=== PATIENT | female | born 1945 | race American Indian/Alaskan Native ===

== ENCOUNTER 2016-10-12 05:10 | Inpatient (IN) | payer MEDICARE ==
[2016-10-12 05:28] LABS: Basophils % (Auto) 0.8 % (0.0-1.8); Eosinophils % (Auto) 0.1 % (0.0-4.3); Hematocrit 45.1 % (30.3-42.9); Hemoglobin 14.8 gm/dl (10.1-14.3); Mean Corpuscular HGB Conc 33 % (30-34); Mean Corpuscular Hemoglobin 31 pg (28-32); Mean Corpuscular Volume 93 fl (79-97); Platelet Count 180 K/mm3 (140-440); Red Blood Count 4.83 M/mm3 (3.65-5.03); Red Cell Distribution Width 13.6 % (13.2-15.2); White Blood Count 7.1 K/mm3 (4.5-11.0)
[2016-10-12] MEDS ORDERED: MAGNESIUM SULFATE 2GM/50ML 2 GM/50 ML BAG IV ONE ×2 (05:36)
[2016-10-12 05:39] LABS: INR 0.97 (0.87-1.13)
[2016-10-12 05:40] LABS: Partial Thromboplastin Time 23.7 Sec. (24.2-36.6)
[2016-10-12] MEDS ORDERED: ATROVENT IH ONE (05:41)
[2016-10-12] MEDS ORDERED: PROVENTIL IH ONE (05:41)
[2016-10-12 06:04] LABS: Creatine Kinase MB 9.6 ng/mL (0.0-4.0)
[2016-10-12 06:06] LABS: Alanine Aminotransferase 98 units/L (7-56); Albumin 4.2 g/dL (3.9-5); Albumin/Globulin Ratio 1.2 %; Alkaline Phosphatase 106 units/L (35-129); Anion Gap 19 mmol/L; BUN/Creatinine Ratio 24.28; Bilirubin,Total 0.3 mg/dL (0.1-1.2); Blood Urea Nitrogen 17 mg/dL (7-17); Calcium 9.6 mg/dL (8.4-10.2); Carbon Dioxide 28 mmol/L (22-30); Chloride 99.9 mmol/L (98-107); Glucose 116 mg/dL (65-100); Sodium 143 mmol/L (137-145); Total Protein 7.7 g/dL (6.3-8.2)
[2016-10-12 06:20] LABS: ISTAT Base Excess 3; ISTAT PCO2 52.8 (35-45); ISTAT PH 7.348 (7.35-7.45); ISTAT PO2 133 (80-105); ISTAT SO2 99; ISTAT TCO2 31
[2016-10-12 06:20] LABS: Cholesterol 231 mg/dL (50-199); HDL Cholesterol 93 mg/dL (40-59); LDL Cholesterol,Direct 126 mg/dL (50-130); Triglycerides 63 mg/dL (2-149)
[2016-10-12] MEDS ORDERED: NACL 0.9% 1000 ML 1,000 ML IV ONE (06:25)
[2016-10-12] MEDS ORDERED: NITROSTAT SL PRN (06:26)
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
[2016-10-12] MEDS ORDERED: NACL ONE (06:50)
--- NOTE | 2016-10-12 07:02 | Admit Criteria Form ---
Admission Criteria Documentation: PULMONARY DISEASE GRG Clinical Indications for Admission to Inpatient Care ( Place 'X' for any and all applicable criteria): Hospital admission is needed for appropriate care of the patient because of ANY ONE of the following(1): [ ]I. Impending or actual respiratory arrest ( Use Respiratory Failure Criteria for severe respiratory disease and long-term mechanical ventilation patients) (4) [ ]II. Severe airflow or ventilation abnormalities (not responsive to emergency and observation care treatment as appropriate) as indicated by ANY ONE of the following(5)(6)(7)(8) : [ ]a) PCO2 > 42 mm Hg (5.6 kPa) and pH < 7.35 (new) [ ]b) Documented PCO2 increase > 5 mm Hg (0.7 kPa) from disease baseline [ ]c) Airflow measurements[A] < 60% of previous best or predicted ( e.g., PEF <300 L/minute) despite intensive emergent treatment[B] [ ]d) Required respiratory treatments that are performable only in acute inpatient setting [X ]III. Severe respiratory findings (not responsive to emergency and observation care treatment as appropriate) including ANY ONE of the following(5)(8)(9): [X ]a) Respiratory distress as indicated by ALL of the following(5)(10) : [ X]i) Patient with ANY ONE of the following: [X ]1) Dyspnea (difficulty breathing) [ ]2) Abnormal breathing pattern (eg, chest retractions) [ ]3) Tachypnea [ ]4) Other evidence of difficulty breathing [ ]ii) Evidence of respiratory compromise indicated by ANY ONE of the following: [ ]1) Hypoxemia [ ]2) Altered mental status [ ]3) Other evidence of respiratory compromise (eg, pulmonary edema on chest x-ray) [ ]b) Stridor [ ]c) Gross hemoptysis(11) [ ]d) Acute cyanosis [ ]IV. High-risk pulmonary infection as indicated by ANY ONE of the following( 19)(20)(21)(22): [ ]a) Temperature less than 95 degrees F(35 degrees C) or greater than 103.1 degrees F(39.5 degrees C) [ ]b) Hemodynamic instability that remains after emergency or observation level care (as appropriate) [ ]c) Immunocompromised patient (eg, AIDS, post transplant, neutropenic) [ ]d) History of severe COPD [ ]e) History of severely symptomatic congestive heart failure [ ]f) Other high-risk comorbidity (eg, poorly controlled diabetes, cirrhosis, chronic renal insufficiency) [ ]g) Hypoxemia (new) [ ]h) Outpatient, observation, or recovery facility therapy has failed, is not appropriate, or is not feasible [ ]V. Severe atelectasis or lung collapse(15)(16) [ ]. Tuberculosis requiring inpatient treatment as indicated by ANY ONE of the following(17)(18): [ ]a) New positive acid-fast bacilli sputum smear [ ]b) Positive acid-fast bacilli smear (under current treatment), with ANY ONE of the following: [ ]i) Unexposed household contacts [ ]ii) Infants or immunosuppressed household contacts [ ]iii) Patient unable or unwilling to avoid exposing others [ ]iv) Severe immunocompromised patient (eg, AIDS, post transplant, neutropenic) [ ]VII. Empyema or lung abscess(13)(14) [ ]VIII. Severe pulmonary arterial hypertension or pulmonary vascular disease requiring inpatient care indicated by ANY ONE of the following(24)(25): [ ]a) Initiation or change of vasodilators (IV, subcutaneous, or inhaled) or other vasoactive medications needed [ ]b) IV anticoagulation needed (eg, immediate anticoagulation necessary, alternatives not appropriate) [ ]c) Arterial or pulmonary artery catheter monitoring needed due to infusion or other treatment [ ]IX. Chronic lung disease with severe deterioration (not responsive to emergency and observation care treatment as appropriate) as indicated by ANY ONE of the following (6)(12): [ ]a) SaO2 5% below baseline in patient with chronic hypoxemia [ ]b) New requirement for supplemental oxygen to keep SaO2 at baseline or acceptable level [ ]c) Required supplemental oxygen performable only in acute inpatient setting [ ]d) Severe airflow or ventilation abnormalities [ ]e) Rapid rate of exacerbation onset [ ]f) Previously mobile patient unable to walk between rooms [ ]g) Inability to eat or sleep due to dyspnea [ ]h) Altered mental status [ ]X. Cystic fibrosis with severe deterioration as indicated by ANY ONE of the following(26)(27): [ ]a) Severe exacerbation that does not respond to intensified home therapy [ ]b) Pneumonia [ ]c) Hemoptysis [ ]d) Atelectasis [ ]e) Pneumothorax [ ]f) Respiratory failure [ ]g) Severe exacerbation with patient unable to perform prescribed treatments at home [ ]XI. Severe right heart failure as indicated by ANY ONE of the following(24) (25): [ ]a) Increasing organ failure (eg, liver congestion with significant and worsening or new elevation of transaminases) [ ]b) Anasarca [ ]c) Angina that requires inpatient care (eg, not treatable in emergency or observation level of care) [ ]d) Respiratory distress [ ]e) Syncope [ ]f) SBP < 90 mm Hg (new) [ ]XII. Injury requiring inpatient care (medical) as indicated by ANY ONE of the following(28): [ ]a) Significant inhalation injury (eg, smoke inhalation, other toxic inhalation) (29)(30)(31) [ ]b) Airway obstruction that remains or is unstable after emergency or observation level care(32) [ ]c) Severe pain requiring acute inpatient management [ ]d) Lung contusion [ ]e) Bronchial tree injury [ ]f) Air or fat emboli(33) [ ]g) Other injury not treatable in emergency or observation level care (eg, hemothorax) (34) [ ]XIII. Pulmonary hemorrhage or significant hemoptysis(11)(35)(36) [ ]XIV. Inpatient palliative care needed[C](37)(38)(39)(40) [ ]XV. Complications of lung transplant (eg, rejection, failure, respiratory infection) (23) [ ]XVI. Pulmonary Disease and ANY ONE of the following: [ ]a) General Admission Criteria [ ]b) Pediatric General Admission Criteria The original [facility] [place] [facility] content created by [email or web address] has been revised. The portions of the content which have been revised are identified through the use of italic text or in bold, and [facility] has neither reviewed nor approved the modified material. All other unmodified content is copyright [facility]. Please see references footnoted in the original [facility] edition 2016 Admission Criteria Met: Yes
[2016-10-12] MEDS ORDERED: BABY ASPIRIN PO ONE (07:47)
[2016-10-12] MEDS ORDERED: LOVENOX SUB-Q ONE (08:04)
[2016-10-12 08:50] LABS: Bilirubin,Urine NEG (Negative); Blood,Urine NEG (Negative); Ketones,Urine NEG (Negative); Leukocyte Esterase,Urine NEG (Negative); Nitrite,Urine POS (Negative); Urobilinogen,Urine < 2.0 mg/dL (<2.0)
[2016-10-12] MEDS ORDERED: PROVENTIL IH PRN (10:00)
[2016-10-12] MEDS ORDERED: LEVAQUIN 750MG/150ML 750 MG/150 ML BAG IV SCH (10:00)
[2016-10-12] MEDS ORDERED: PROTONIX IV SCH (10:00)
[2016-10-12] MEDS ORDERED: FISH OIL 1000 MG PO SCH (10:00)
--- NOTE | 2016-10-12 10:28 | Admit Criteria Form ---
Admission Criteria Documentation: RESPIRATORY FAILURE GRG Clinical Indications for Admission to Inpatient Care (Place 'X' for any and all applicable criteria): Hospital admission is needed for appropriate care of the patient because of acute respiratory failure or insufficiency as indicated by ANY ONE of the following(1)(2)(3)(4)(5)(6)(7)(8): [ ]I. Mechanical ventilation needed (acute invasive or noninvasive) [ ]II. Severe ventilation deficit as indicated by ANY ONE of the following (9) [ ]a) Respiratory acidosis (pH less than 7.32 and partial pressure of carbon dioxide greater than 40 mm Hg (5.3 kPa)) [ ]b) Partial pressure of carbon dioxide greater than 44 mm Hg (5.9 kPa ) (new) [ ]c) Airflow measurements less than 25% of predicted (eg, peak expiratory flow rate less than 100 L/minute) [ ]d) Forced vital capacity less than 15 mL/kg of ideal body weight, or 50% decrease in vital capacity from baseline [ ]III. Noncardiac pulmonary edema not resolving with rapid emergency treatment (8) [X ]IV. Severe respiratory distress as indicated by ANY ONE of the following: [X]a) Severe tachypnea (respiratory rate greater than 30, greater than 45 for 6-month-old, greater than 60 for ) [ ]b) Severe hypoxemia (partial pressure of oxygen less than 50 mm Hg ( 6.7 kPa) on greater than 50% oxygen or partial pressure of oxygen to FIO2 ratio less than 200) [ ]c) Mental status deterioration from respiratory disease [ ]V. Airway obstruction or inadequate protection [A](10)(11) The original [employer] content created by [employer] has been revised. The portions of the content which have been revised are identified through the use of italic text or in bold, and [facility] has neither reviewed nor approved the modified material. All other unmodified content is copyright [employer]. Please see references footnoted in the original [employer] edition 2016 Admission Criteria Met: Yes
[2016-10-12] MEDS ORDERED: ASPIRIN PO ONE (11:00)
[2016-10-12] MEDS: NORVASC PO SCH (11:46)
[2016-10-12] MEDS: ZESTRIL PO SCH (11:47)
[2016-10-12] MEDS: COREG PO SCH ×2 (11:56→23:04)
[2016-10-12] MEDS: LEVAQUIN 750MG/150ML 750 MG/150 ML BAG IV SCH (11:56)
--- NOTE | 2016-10-12 12:57 | History and Physical Report ---
History of Present Illness Date of examination: 10/12/16 Date of admission: 10/12/16 08:12 Chief complaint: Worsening shortness of breath since this morning History of present illness: 70-year-old -British female patient with significant past medical history of COPD home oxygen dependent hypertension, bronchial asthma history of CVA in 2011, was brought to the emergency room with worsening shortness of breath this morning Patient was brought to the emergency room noted to have severe hypoxemia started on BiPAP IV steroids with mild improvement Patient also complains of vague chest pain, first set of of cardiac enzymes were positive, EKG nonspecific changes Denies nausea vomiting or abdominal pain Denies headache dizziness weakness or numbness No urinary symptoms Past History Past Medical History: COPD, hypertension, hyperlipidemia, PVD Past Surgical History: appendectomy Social history: lives with family. denies: smoking, alcohol abuse, prescription drug abuse Family history: hypertension Medications and Allergies Allergies Allergy/AdvReac Type Severity Reaction Status Date / Time Oxazolidinone Antibacterials Allergy Rash Verified 02/23/15 12:02 Sulfa (Sulfonamide Allergy Rash Verified 02/23/15 12:02 Antibiotics) Home Medications Medication Instructions Recorded Confirmed Last Taken Type Albuterol 02/23/15 02/23/15 Unknown History Fish Oil 1,000 mg PO QDAY 02/23/15 02/23/15 Unknown History Gabapentin [Neurontin] 300 mg PO TID 02/23/15 02/23/15 Unknown History HYDROcodone/APAP 5-325 [[place] 1 each PO Q8HR PRN #10 tablet 02/23/15 Unknown Rx 5-325 mg TAB] Ipratropium/Albuter (Nf) 02/23/15 02/23/15 Unknown History Lisinopril [Zestril TAB] 5 mg PO QDAY 02/23/15 02/23/15 Unknown History Vitamin B Complex 02/23/15 02/23/15 Unknown History amLODIPine [Norvasc] 5 mg PO QDAY 02/23/15 02/23/15 Unknown History Active Meds: Active Medications Albuterol (Proventil) 2.5 mg IH Q3HRT PRN PRN Reason: Shortness Of Breath Albuterol/Ipratropium (Duoneb 0.5 Mg-3 Mg/3 Ml Soln) 1 ampul IH Q6HRT [facility] Amlodipine Besylate (Norvasc) 5 mg PO QDAY [facility] Last Admin: 10/12/16 11:46 Dose: Not Given Aspirin (Aspirin) 325 mg PO QDAY [facility] Atorvastatin Calcium (Lipitor) 40 mg PO QHS [facility] Carvedilol (Coreg) 3.125 mg PO BID [facility] Last Admin: 10/12/16 11:56 Dose: 3.125 mg Budesonide 0.5 mg/ (Arformoterol Tartrate 15 mcg) 0 mg IH Q12HRT [facility] Enoxaparin Sodium (Lovenox) 60 mg 1 mg/kg (60 mg) SUB-Q Q12HR [facility] Fish Oil (Fish Oil) 1,000 mg PO QDAY [facility] Gabapentin (Neurontin) 300 mg PO TID [facility] Levofloxacin/Dextrose (Levaquin 750mg/150ml) 750 mg in 150 mls @ 100 mls/hr IV Q48H [facility] Last Admin: 10/12/16 11:56 Dose: 100 mls/hr Lisinopril (Zestril) 5 mg PO QDAY [facility] Last Admin: 10/12/16 11:47 Dose: Not Given Methylprednisolone Sodium Succinate (Solu-Medrol) 125 mg IV Q8H [facility] Last Admin: 10/12/16 11:46 Dose: Not Given Nitroglycerin (Nitrostat) 0.4 mg SL .Q5MIN PRN PRN Reason: Chest Pain Pantoprazole Sodium (Protonix) 40 mg IV QDAY [facility] Last Admin: 10/12/16 11:56 Dose: 40 mg Review of Systems Constitutional: weakness, no weight loss, no weight gain, no fever, no chills Ears, nose, mouth and throat: nasal congestion, nasal discharge Cardiovascular: chest pain, shortness of breath, dyspnea on exertion, paroxysmal nocturnal dyspnea Respiratory: shortness of breath, congestion, wheezing, no cough, no dyspnea on exertion Gastrointestinal: no nausea, no vomiting, no diarrhea Genitourinary Female: no pelvic pain, no dysuria Musculoskeletal: no myalgias, no arthritis Integumentary: no rash, no lesions Neurological: weakness, no tingling, no seizures, no syncope Psychiatric: no anxiety, no depression Endocrine: no cold intolerance, no heat intolerance, no polydipsia, no polyuria Hematologic/Lymphatic: no easy bruising, no easy bleeding Allergic/Immunologic: no urticaria, no allergic rhinitis Exam - Constitutional Vitals: Temp Pulse Resp BP Pulse Ox 97.9 F 99 H 27 H 127/79 99 10/12/16 12:30 10/12/16 12:41 10/12/16 12:41 10/12/16 11:56 10/12/16 11:00 General appearance: Present: no acute distress, well-nourished, cachectic - EENT Eyes: Present: PERRL, EOM intact - Neck Neck: Present: supple, normal ROM - Respiratory Respiratory: bilateral: diminished, rales, rhonchi - Cardiovascular Rhythm: regular Heart Sounds: Present: S1 & S2 (tachycardia) - Extremities Extremities: no ischemia, pulses intact Peripheral Pulses: within normal limits - Abdominal General gastrointestinal: Present: soft, non-tender, non-distended, normal bowel sounds - Integumentary Integumentary: Present: clear, warm - Musculoskeletal Musculoskeletal: strength equal bilaterally - Psychiatric Psychiatric: appropriate mood/affect, other - Neurologic Neurologic: CNII-XII intact, moves all extremities Results - Labs CBC & Chem 7: 10/12/16 05:15 10/12/16 05:15 Labs: Abnormal lab results 10/12/16 10/12/16 Range/Units 11:19 12:27 POC Glucose 149 H (70-105) Troponin T 0.547 H* D (0.00-0.029) ng/mL Assessment and Plan --Acute on chronic hypoxic hypercapnic respiratory failure Continue BiPAP, titrated to O2 sats more than 90% High-dose steroids, nebulizers inhalation steroids IV antibiotics Pulmonary critical consultation Intubate as needed, --Acute exacerbation of COPD Oxygen, nebulizers IV steroids, IV antibiotics, inhalation steroids Pulmonary consultation --Non-ST elevation MT Serial cardiac enzymes, EKG, echocardiogram aspirin and [place]RIST[place]NA inhibitor, nitrates and statins Hold beta blockers in view of COPD exacerbation and acute respiratory failure Cardiology consultation for possible heart Cath versus stress test --Elevated D dimers Patient is unstable to get CT angiogram of the chest patient is already on full dose anticoagulation for non-ST elevation MT We will obtain chest CT to rule out PE once patient is more stable, --Malignant hypertension Resume home antihypertensives, when necessary hydralazine --DVT prophylaxis patient is already on Lovenox --Full CODE STATUS Closely monitor the patient and adjust management as needed Disposition admit to ICU, pulmonary critical consult requested DC planning. Case management Plan of care discussed with the patient, her nurse as well as the ER physician
[2016-10-12] MEDS: FISH OIL PO SCH (13:04)
[2016-10-12] MEDS: NEURONTIN PO SCH ×2 (13:10→21:27)
[2016-10-12] MEDS ORDERED: APRESOLINE IV PRN (13:14)
[2016-10-12] MEDS: DUONEB 0.5 MG-3 MG/3 ML SOLN IH SCH ×3 (14:09→20:09)
[2016-10-12] MEDS ORDERED: ATIVAN IV ONE (14:30)
[2016-10-12] MEDS ORDERED: APRESOLINE IV SCH (17:00)
[2016-10-12] MEDS: APRESOLINE IV SCH ×2 (18:01→22:05)
--- NOTE | 2016-10-12 18:13 | Consultation ---
History of Present Illness Consult date: 10/12/16 Requesting physician: RICHAR STEVENSON Reason for consult: COPD History of present illness: 70 yo admitted w/ increased SOB, wheezing, hypoxia, fevers at home, cough, and chest pain. Patient not able to give much history when I saw her 2/2 to respiratory distress and BIPAP mask. Denies smoking. Active Medications Albuterol (Proventil) 2.5 mg IH Q3HRT PRN PRN Reason: Shortness Of Breath Albuterol/Ipratropium (Duoneb 0.5 Mg-3 Mg/3 Ml Soln) 1 ampul IH Q6HRT [facility] Last Admin: 10/12/16 17:53 Dose: 1 ampul Amlodipine Besylate (Norvasc) 5 mg PO QDAY [facility] Last Admin: 10/12/16 11:46 Dose: Not Given Aspirin (Aspirin) 325 mg PO QDAY [facility] Atorvastatin Calcium (Lipitor) 40 mg PO QHS [facility] Carvedilol (Coreg) 3.125 mg PO BID [facility] Last Admin: 10/12/16 11:56 Dose: 3.125 mg Budesonide 0.5 mg/ (Arformoterol Tartrate 15 mcg) 0 mg IH Q12HRT [facility] Enoxaparin Sodium (Lovenox) 60 mg 1 mg/kg (60 mg) SUB-Q Q12HR [facility] Fish Oil (Fish Oil) 1,000 mg PO QDAY [facility] Last Admin: 10/12/16 13:04 Dose: Not Given Gabapentin (Neurontin) 300 mg PO TID [facility] Last Admin: 10/12/16 13:10 Dose: Not Given Hydralazine HCl (Apresoline) 10 mg IV Q4HR PRN PRN Reason: Hypertension Hydralazine HCl (Apresoline) 10 mg IV Q8HR [facility] Last Admin: 10/12/16 18:01 Dose: 10 mg Levofloxacin/Dextrose (Levaquin 750mg/150ml) 750 mg in 150 mls @ 100 mls/hr IV Q48H [facility] Last Admin: 10/12/16 11:56 Dose: 100 mls/hr Lisinopril (Zestril) 5 mg PO QDAY [facility] Last Admin: 10/12/16 11:47 Dose: Not Given Lorazepam (Ativan) 0.5 mg IV Q8H PRN PRN Reason: Anxiety Methylprednisolone Sodium Succinate (Solu-Medrol) 125 mg IV Q8H [facility] Last Admin: 10/12/16 17:42 Dose: 125 mg Nitroglycerin (Nitrostat) 0.4 mg SL .Q5MIN PRN PRN Reason: Chest Pain Pantoprazole Sodium (Protonix) 40 mg IV QDAY [facility] Last Admin: 10/12/16 11:56 Dose: 40 mg Past History Past Medical History: COPD, hypertension, hyperlipidemia, PVD Past Surgical History: appendectomy Social history: lives with family, full code. denies: smoking, alcohol abuse, prescription drug abuse, IV drug use Family history: hypertension Medications and Allergies Allergies Allergy/AdvReac Type Severity Reaction Status Date / Time Oxazolidinone Antibacterials Allergy Rash Verified 02/23/15 12:02 Sulfa (Sulfonamide Allergy Rash Verified 02/23/15 12:02 Antibiotics) Home Medications Medication Instructions Recorded Confirmed Last Taken Type Albuterol 02/23/15 02/23/15 Unknown History Fish Oil 1,000 mg PO QDAY 02/23/15 02/23/15 Unknown History Gabapentin [Neurontin] 300 mg PO TID 02/23/15 02/23/15 Unknown History HYDROcodone/APAP 5-325 [[place] 1 each PO Q8HR PRN #10 tablet 02/23/15 Unknown Rx 5-325 mg TAB] Ipratropium/Albuter (Nf) 02/23/15 02/23/15 Unknown History Lisinopril [Zestril TAB] 5 mg PO QDAY 02/23/15 02/23/15 Unknown History Vitamin B Complex 02/23/15 02/23/15 Unknown History amLODIPine [Norvasc] 5 mg PO QDAY 02/23/15 02/23/15 Unknown History Active Meds: Active Medications Albuterol (Proventil) 2.5 mg IH Q3HRT PRN PRN Reason: Shortness Of Breath Albuterol/Ipratropium (Duoneb 0.5 Mg-3 Mg/3 Ml Soln) 1 ampul IH Q6HRT [facility] Last Admin: 10/12/16 17:53 Dose: 1 ampul Amlodipine Besylate (Norvasc) 5 mg PO QDAY [facility] Last Admin: 10/12/16 11:46 Dose: Not Given Aspirin (Aspirin) 325 mg PO QDAY [facility] Atorvastatin Calcium (Lipitor) 40 mg PO QHS [facility] Carvedilol (Coreg) 3.125 mg PO BID [facility] Last Admin: 10/12/16 11:56 Dose: 3.125 mg Budesonide 0.5 mg/ (Arformoterol Tartrate 15 mcg) 0 mg IH Q12HRT [facility] Enoxaparin Sodium (Lovenox) 60 mg 1 mg/kg (60 mg) SUB-Q Q12HR [facility] Fish Oil (Fish Oil) 1,000 mg PO QDAY [facility] Last Admin: 10/12/16 13:04 Dose: Not Given Gabapentin (Neurontin) 300 mg PO TID [facility] Last Admin: 10/12/16 13:10 Dose: Not Given Hydralazine HCl (Apresoline) 10 mg IV Q4HR PRN PRN Reason: Hypertension Hydralazine HCl (Apresoline) 10 mg IV Q8HR [facility] Last Admin: 10/12/16 18:01 Dose: 10 mg Levofloxacin/Dextrose (Levaquin 750mg/150ml) 750 mg in 150 mls @ 100 mls/hr IV Q48H [facility] Last Admin: 10/12/16 11:56 Dose: 100 mls/hr Lisinopril (Zestril) 5 mg PO QDAY [facility] Last Admin: 10/12/16 11:47 Dose: Not Given Lorazepam (Ativan) 0.5 mg IV Q8H PRN PRN Reason: Anxiety Methylprednisolone Sodium Succinate (Solu-Medrol) 125 mg IV Q8H [facility] Last Admin: 10/12/16 17:42 Dose: 125 mg Nitroglycerin (Nitrostat) 0.4 mg SL .Q5MIN PRN PRN Reason: Chest Pain Pantoprazole Sodium (Protonix) 40 mg IV QDAY [facility] Last Admin: 10/12/16 11:56 Dose: 40 mg Review of Systems All systems: negative Physical Examination Vital signs: Vital Signs Pulse Resp BP Pulse Ox 101 H 38 H 184/93 100 10/12/16 05:10 10/12/16 05:10 10/12/16 05:10 10/12/16 05:10 General appearance: alert, other (critically ill on bipap) Eyes: non-icteric ENT: oropharynx moist Neck: supple Effort: other (moderate respiratory distress) Ascultation: Bilateral: diminished breath sounds, wheezes Cardiovascular: other (tachy, RR; no mrg) Gastrointestinal: normoactive bowel sounds, soft, non-tender, non-distended Integumentary: normal Extremities: no cyanosis, no edema, pink and warm Musculoskeletal: no deformities normal mental status, non-focal exam, pupils equal and round, CN II-XII normal mood appropriate, affect normal Results - Laboratory Findings CBC and BMP: 10/12/16 05:15 10/12/16 05:15 ABG POC ABG pH 7.348 (7.35-7.45) L 10/12/16 05:58 POC ABG pCO2 52.8 (35-45) H 10/12/16 05:58 POC ABG pO2 133 (80-105) H 10/12/16 05:58 POC ABG HCO3 29.0 10/12/16 05:58 POC ABG Total CO2 31 10/12/16 05:58 POC ABG O2 Sat 99 10/12/16 05:58 PT/INR, D-dimer PT 12.8 Sec. (12.2-14.9) 10/12/16 05:15 INR 0.97 (0.87-1.13) 10/12/16 05:15 D-Dimer 379.00 ng/mlDDU (0-234) H 10/12/16 05:15 Abnormal lab findings: Abnormal Labs 10/12/16 10/12/16 10/12/16 11:19 12:27 15:46 POC Glucose 149 H Total Creatine Kinase 292 H CK-MB (CK-2) 21.0 H CK-MB (CK-2) Rel Index 7.1 H Troponin T 0.547 H* D 0.488 H* - Diagnostic Findings Chest x-ray: report reviewed, image reviewed (no change from prior) Assessment and Plan Imp: 1. Acute bronchitis 2. COPD exac. 3. A/C respiratory failure, hypoxia and hypercapnea 4. Anxiety Rec: 1. Solumedrol/Levaquin/Duonebs/Pulmicort/[place] 2. Was on CPAP when I saw her; changed to BIPAP; repeat ABG stat 3. Anxiety making dyspnea worse, likely with gas trapping; PRN low-dose Ativan ordered 4. DVT PPx 5. Can get CTA chest when more stable although PE doubtful; covering with therapeutic Lovenox for now 6. Further plans pending clinical course CCT 31 minutes Thanks kindly for the consult. Will follow closely.
[2016-10-12] MEDS: ATIVAN IV PRN (18:22)
[2016-10-12 18:43] LABS: Creatine Kinase MB 21.8 ng/mL (0.0-4.0)
[2016-10-12 18:50] LABS: ISTAT Base Excess 4; ISTAT HCO3 28.6; ISTAT PCO2 47.4 (35-45); ISTAT PH 7.388 (7.35-7.45); ISTAT PO2 68 (80-105); ISTAT SO2 93; ISTAT TCO2 30
[2016-10-12] MEDS ORDERED: MORPHINE IV ONE (18:56)
--- NOTE | 2016-10-12 19:49 | Consultation ---
History of Present Illness Consult date: 10/12/16 Consult reason: abnormal cardiac enzymes History of present illness: Patient is a 70-year-old woman with severe lung disease, who was on BiPAP therapy at home. She presents to the hospital, with increasing shortness of breath. She is currently in the CCU, on BiPAP. On the carpenter maintenance, she is in a normal sinus rhythm at 96, blood pressure is normal at 111 systolic. Chest x-ray reveals a right hilar fullness, but no evidence of significant interstitial pulmonary edema. Cardiac consultation was requested for abnormally elevated cardiac isoenzymes. The total CPK is 314, but CK-MB fraction is only 3%. The initial troponin was 0.08, and increased to 0.5 on the second set. The ECG is in normal sinus rhythm with no ST or T-wave abnormalities, essentially normal ECG. The patient did not complain of chest pain and denies any prior history of coronary artery disease. Her old records are not available for review of any prior cardiac workup. Past History Past Medical History: COPD, hypertension, hyperlipidemia, PVD Past Surgical History: appendectomy Social history: lives with family, full code. denies: smoking, alcohol abuse, prescription drug abuse, IV drug use Family history: hypertension Medications and Allergies Allergies Allergy/AdvReac Type Severity Reaction Status Date / Time Oxazolidinone Antibacterials Allergy Rash Verified 02/23/15 12:02 Sulfa (Sulfonamide Allergy Rash Verified 02/23/15 12:02 Antibiotics) Home Medications Medication Instructions Recorded Confirmed Last Taken Type Albuterol 02/23/15 02/23/15 Unknown History Fish Oil 1,000 mg PO QDAY 02/23/15 02/23/15 Unknown History Gabapentin [Neurontin] 300 mg PO TID 02/23/15 02/23/15 Unknown History HYDROcodone/APAP 5-325 [[place] 1 each PO Q8HR PRN #10 tablet 02/23/15 Unknown Rx 5-325 mg TAB] Ipratropium/Albuter (Nf) 02/23/15 02/23/15 Unknown History Lisinopril [Zestril TAB] 5 mg PO QDAY 02/23/15 02/23/15 Unknown History Vitamin B Complex 02/23/15 02/23/15 Unknown History amLODIPine [Norvasc] 5 mg PO QDAY 02/23/15 02/23/15 Unknown History Active Meds: Active Medications Albuterol (Proventil) 2.5 mg IH Q3HRT PRN PRN Reason: Shortness Of Breath Albuterol/Ipratropium (Duoneb 0.5 Mg-3 Mg/3 Ml Soln) 1 ampul IH Q6HRT [facility] Last Admin: 10/12/16 17:53 Dose: 1 ampul Amlodipine Besylate (Norvasc) 5 mg PO QDAY [facility] Last Admin: 10/12/16 11:46 Dose: Not Given Aspirin (Aspirin) 325 mg PO QDAY [facility] Atorvastatin Calcium (Lipitor) 40 mg PO QHS [facility] Carvedilol (Coreg) 3.125 mg PO BID [facility] Last Admin: 10/12/16 11:56 Dose: 3.125 mg Budesonide 0.5 mg/ (Arformoterol Tartrate 15 mcg) 0 mg IH Q12HRT [facility] Enoxaparin Sodium (Lovenox) 60 mg 1 mg/kg (60 mg) SUB-Q Q12HR [facility] Fish Oil (Fish Oil) 1,000 mg PO QDAY [facility] Last Admin: 10/12/16 13:04 Dose: Not Given Gabapentin (Neurontin) 300 mg PO TID [facility] Last Admin: 10/12/16 13:10 Dose: Not Given Hydralazine HCl (Apresoline) 10 mg IV Q4HR PRN PRN Reason: Hypertension Hydralazine HCl (Apresoline) 10 mg IV Q8HR [facility] Last Admin: 10/12/16 18:01 Dose: 10 mg Levofloxacin/Dextrose (Levaquin 750mg/150ml) 750 mg in 150 mls @ 100 mls/hr IV Q48H [facility] Last Admin: 10/12/16 11:56 Dose: 100 mls/hr Lisinopril (Zestril) 5 mg PO QDAY [facility] Last Admin: 10/12/16 11:47 Dose: Not Given Lorazepam (Ativan) 0.5 mg IV Q8H PRN PRN Reason: Anxiety Last Admin: 10/12/16 18:22 Dose: 0.5 mg Methylprednisolone Sodium Succinate (Solu-Medrol) 125 mg IV Q8H [facility] Last Admin: 10/12/16 17:42 Dose: 125 mg Nitroglycerin (Nitrostat) 0.4 mg SL .Q5MIN PRN PRN Reason: Chest Pain Pantoprazole Sodium (Protonix) 40 mg IV QDAY [facility] Last Admin: 10/12/16 11:56 Dose: 40 mg Review of Systems Cardiovascular: shortness of breath, no chest pain, no orthopnea, no palpitations, no rapid/irregular heart beat, no edema, no syncope, no lightheadedness Physical Examination Vital Signs Pulse Resp BP Pulse Ox 101 H 38 H 184/93 100 10/12/16 05:10 10/12/16 05:10 10/12/16 05:10 10/12/16 05:10 General appearance: mild distress, other (patient is on BiPAP) HEENT: Positive: PERRL Neck: Positive: neck supple Cardiac: Positive: Reg Rate and Rhythm Lungs: Positive: Decreased Breath Sounds Neuro: Positive: Grossly Intact Abdomen: Positive: Soft Female genitourinary: deferred Skin: Positive: Clear Extremities: Absent: edema Results 10/12/16 05:15 10/12/16 05:15 Cardiac Enzymes 10/12/16 10/12/16 Range/Units 15:46 18:00 CK-MB (CK-2) 21.0 H 21.8 H (0.0-4.0) ng/mL EKG interpretations - Telemetry EKG Rhythm: Sinus Rhythm Assessment and Plan - Patient Problems (1) COPD exacerbation Current Visit: Yes Status: Acute Plan to address problem: Patient presents with shortness of breath due to exacerbation of COPD. Continue workup for management as you're doing. (2) Abnormal cardiac enzyme level Current Visit: Yes Status: Acute Plan to address problem: Patient has no chest pain, no chest x-ray evidence of heart failure, and ECG is benign. The cardiac enzyme profile is therefore somewhat nonspecific. We will get an echocardiogram for left ventricular function assessment. Further cardiac evaluation and management will depend on clinical course. Due to the severity of her COPD, she is not likely a candidate for aggressive and invasive cardiac evaluation and therapies.
[2016-10-12] MEDS ORDERED: NACL 0.9% 500 ML 500 ML IV ONE (21:24)
[2016-10-12] MEDS: LOVENOX SUB-Q SCH (22:04)
[2016-10-13] MEDS: DUONEB 0.5 MG-3 MG/3 ML SOLN IH SCH ×4 (02:00→20:25)
[2016-10-13] MEDS: NEURONTIN PO SCH ×4 (02:07→21:20)
[2016-10-13 05:18] LABS: Basophils % (Auto) 0.7 % (0.0-1.8); Hematocrit 42.7 % (30.3-42.9); Mean Corpuscular HGB Conc 33 % (30-34); Mean Corpuscular Hemoglobin 31 pg (28-32); Mean Corpuscular Volume 93 fl (79-97); Platelet Count 168 K/mm3 (140-440); Red Blood Count 4.58 M/mm3 (3.65-5.03); Red Cell Distribution Width 13.7 % (13.2-15.2); White Blood Count 5.5 K/mm3 (4.5-11.0)
[2016-10-13 05:35] LABS: Anion Gap 20 mmol/L; BUN/Creatinine Ratio 35.71; Blood Urea Nitrogen 25 mg/dL (7-17); Calcium 9.1 mg/dL (8.4-10.2); Carbon Dioxide 23 mmol/L (22-30); Chloride 102.6 mmol/L (98-107); Glucose 121 mg/dL (65-100); Magnesium 2.1 mg/dL (1.7-2.3); Phosphorous 3.9 mg/dL (2.5-4.5); Potassium 4.2 mmol/L (3.6-5.0); Sodium 141 mmol/L (137-145)
[2016-10-13] MEDS: ATIVAN IV PRN ×2 (08:31→19:44)
[2016-10-13] MEDS: MORPHINE IV PRN ×3 (09:12→22:30)
[2016-10-13] MEDS: ASPIRIN PO SCH (10:32)
[2016-10-13] MEDS: PROTONIX PO SCH (10:33)
[2016-10-13] MEDS: FISH OIL PO SCH (10:33)
[2016-10-13] MEDS: LOVENOX SUB-Q SCH ×2 (10:56→22:37)
[2016-10-13 11:41] LABS: ISTAT Base Excess 2; ISTAT HCO3 26.5; ISTAT PH 7.397 (7.35-7.45); ISTAT PO2 78 (80-105); ISTAT SO2 95; ISTAT TCO2 28
[2016-10-13] MEDS ORDERED: MORPHINE IV ONE (13:04)
[2016-10-13] MEDS: APRESOLINE IV SCH ×2 (14:28→22:08)
--- NOTE | 2016-10-13 15:34 | Progress Note ---
Assessment and Plan Imp: 1. Acute bronchitis 2. COPD exac. 3. A/C respiratory failure, hypoxia and hypercapnea 4. Anxiety Rec: 1. Solumedrol -> decrease to 80mg IV [id number]; cont. Levaquin/Duonebs/Pulmicort/ Brovana/Singulair 2. IV Ativan/Morphine for anxiety and chest pain, respectively 3. Can get CTA chest when more stable although PE doubtful; covering with therapeutic Lovenox for now 4. Consider trial of HFNC 5. CXR again in AM 6. Will try to review office records/PFTs 7. Further plans pending clinical course; she is tachypneic but much of this is anxiety-driven as it improves after Morphine and when asleep; ABGs show adequate /improving gas exchange; would like to avoid intubation given the severity of her COPD CCT 31 minutes Subjective Date of service: 10/13/16 Principal diagnosis: COPD exac Interval history: c/o SOB and anterior chest pain, both of which improve with Morphine. States she feels like she is not getting air in but per BIPAP she is getting good volumes and ABGs are better. + Anxiety. Active Medications Albuterol (Proventil) 2.5 mg IH Q3HRT PRN PRN Reason: Shortness Of Breath Albuterol/Ipratropium (Duoneb 0.5 Mg-3 Mg/3 Ml Soln) 1 ampul IH Q6HRT [facility] Last Admin: 10/13/16 13:38 Dose: 1 ampul Amlodipine Besylate (Norvasc) 5 mg PO QDAY [facility] Last Admin: 10/12/16 11:46 Dose: Not Given Aspirin (Aspirin) 325 mg PO QDAY [facility] Last Admin: 10/13/16 10:32 Dose: Not Given Atorvastatin Calcium (Lipitor) 40 mg PO QHS [facility] Last Admin: 10/12/16 22:05 Dose: 40 mg Carvedilol (Coreg) 3.125 mg PO BID [facility] Last Admin: 10/12/16 23:04 Dose: Not Given Budesonide 0.5 mg/ (Arformoterol Tartrate 15 mcg) 0 mg IH Q12HRT [facility] Enoxaparin Sodium (Lovenox) 60 mg 1 mg/kg (60 mg) SUB-Q Q12HR [facility] Last Admin: 10/13/16 10:56 Dose: 60 mg Fish Oil (Fish Oil) 1,000 mg PO QDAY [facility] Last Admin: 10/13/16 10:33 Dose: Not Given Gabapentin (Neurontin) 300 mg PO TID [facility] Last Admin: 10/13/16 08:32 Dose: Not Given Hydralazine HCl (Apresoline) 10 mg IV Q4HR PRN PRN Reason: Hypertension Hydralazine HCl (Apresoline) 10 mg IV Q8HR [facility] Last Admin: 10/12/16 22:05 Dose: Not Given Levofloxacin/Dextrose (Levaquin 750mg/150ml) 750 mg in 150 mls @ 100 mls/hr IV Q48H [facility] Last Admin: 10/12/16 11:56 Dose: 100 mls/hr Lisinopril (Zestril) 5 mg PO QDAY [facility] Last Admin: 10/12/16 11:47 Dose: Not Given Lorazepam (Ativan) 1 mg IV Q4H PRN PRN Reason: Anxiety Methylprednisolone Sodium Succinate (Solu-Medrol) 80 mg IV Q8H [facility] Morphine Sulfate (Morphine) 2 mg IV Q4H PRN PRN Reason: Pain, Moderate (4-6) Last Admin: 10/13/16 09:12 Dose: 2 mg Nitroglycerin (Nitrostat) 0.4 mg SL .Q5MIN PRN PRN Reason: Chest Pain Pantoprazole Sodium (Protonix) 40 mg PO DAILY [facility] Last Admin: 10/13/16 10:33 Dose: Not Given Objective Vital Signs - 12hr 10/13/16 10/13/16 10/13/16 04:01 04:12 04:36 Temperature 98.7 F Pulse Rate Pulse Rate [ Anterior Bilateral Throughout] Pulse Rate [ 67 From Monitor] Pulse Rate [ 67 Left Dorsalis Pedis] Pulse Rate [ 67 Left Radial] Pulse Rate [ 67 Right Dorsalis Pedis] Respiratory 22 Rate Respiratory Rate [Anterior Bilateral Throughout] Blood Pressure 131/68 O2 Sat by Pulse 96 Oximetry 10/13/16 10/13/16 10/13/16 05:09 06:00 07:00 Temperature Pulse Rate 84 86 88 Pulse Rate [ Anterior Bilateral Throughout] Pulse Rate [ From Monitor] Pulse Rate [ Left Dorsalis Pedis] Pulse Rate [ Left Radial] Pulse Rate [ Right Dorsalis Pedis] Respiratory 29 H 17 30 H Rate Respiratory Rate [Anterior Bilateral Throughout] Blood Pressure 136/77 138/86 O2 Sat by Pulse 98 98 98 Oximetry 10/13/16 10/13/16 10/13/16 07:26 07:27 07:31 Temperature Pulse Rate 96 H Pulse Rate [ 96 H 100 H Anterior Bilateral Throughout] Pulse Rate [ From Monitor] Pulse Rate [ Left Dorsalis Pedis] Pulse Rate [ Left Radial] Pulse Rate [ Right Dorsalis Pedis] Respiratory 26 H Rate Respiratory 26 H 26 H Rate [Anterior Bilateral Throughout] Blood Pressure O2 Sat by Pulse 96 Oximetry 10/13/16 10/13/16 10/13/16 08:00 09:00 10:00 Temperature Pulse Rate 92 H 93 H 94 H Pulse Rate [ Anterior Bilateral Throughout] Pulse Rate [ From Monitor] Pulse Rate [ Left Dorsalis Pedis] Pulse Rate [ Left Radial] Pulse Rate [ Right Dorsalis Pedis] Respiratory 30 H 42 H 44 H Rate Respiratory Rate [Anterior Bilateral Throughout] Blood Pressure 152/86 150/93 149/92 O2 Sat by Pulse 96 94 95 Oximetry 10/13/16 10/13/16 10/13/16 11:00 12:00 13:01 Temperature Pulse Rate 94 H 91 H 93 H Pulse Rate [ Anterior Bilateral Throughout] Pulse Rate [ From Monitor] Pulse Rate [ Left Dorsalis Pedis] Pulse Rate [ Left Radial] Pulse Rate [ Right Dorsalis Pedis] Respiratory 28 H 33 H 20 Rate Respiratory Rate [Anterior Bilateral Throughout] Blood Pressure 164/89 131/81 154/88 O2 Sat by Pulse 95 95 94 Oximetry 10/13/16 10/13/16 13:39 13:45 Temperature Pulse Rate Pulse Rate [ 97 H 98 H Anterior Bilateral Throughout] Pulse Rate [ From Monitor] Pulse Rate [ Left Dorsalis Pedis] Pulse Rate [ Left Radial] Pulse Rate [ Right Dorsalis Pedis] Respiratory Rate Respiratory 32 H 30 H Rate [Anterior Bilateral Throughout] Blood Pressure O2 Sat by Pulse Oximetry Constitutional: alert, other (critically ill on bipap, anxious) Eyes: non-icteric ENT: oropharynx moist Neck: supple Effort: other (tachypneic) Ascultation: Bilateral: diminished breath sounds, wheezes Cardiovascular: other (tachy, RR; no mrg) Gastrointestinal: normoactive bowel sounds, soft, non-tender, non-distended Integumentary: normal Extremities: no cyanosis, no edema, pink and warm Neurologic: normal mental status, non-focal exam, pupils equal and round, CN II- XII normal Psychiatric: mood appropriate, affect normal CBC and BMP: 10/13/16 04:00 10/13/16 04:00 ABG, PT/INR, D-dimer: ABG POC ABG pH 7.397 (7.35-7.45) 10/13/16 11:35 POC ABG pCO2 43.0 (35-45) 10/13/16 11:35 POC ABG pO2 78 (80-105) L 10/13/16 11:35 POC ABG HCO3 26.5 10/13/16 11:35 POC ABG Total CO2 28 10/13/16 11:35 POC ABG O2 Sat 95 10/13/16 11:35 PT/INR, D-dimer PT 12.8 Sec. (12.2-14.9) 10/12/16 05:15 INR 0.97 (0.87-1.13) 10/12/16 05:15 D-Dimer 379.00 ng/mlDDU (0-234) H 10/12/16 05:15 Abnormal lab findings: Abnormal Labs 10/12/16 10/12/16 10/12/16 11:19 12:27 15:46 Lymph # Seg Neutrophils % POC ABG pCO2 POC ABG pO2 BUN Glucose POC Glucose 149 H Total Creatine Kinase 292 H CK-MB (CK-2) 21.0 H CK-MB (CK-2) Rel Index 7.1 H Troponin T 0.547 H* D 0.488 H* 10/12/16 10/12/16 10/12/16 18:00 18:18 18:38 Lymph # Seg Neutrophils % POC ABG pCO2 47.4 H POC ABG pO2 68 L BUN Glucose POC Glucose 161 H Total Creatine Kinase 300 H CK-MB (CK-2) 21.8 H CK-MB (CK-2) Rel Index 7.2 H Troponin T 0.209 H* D 10/13/16 10/13/16 10/13/16 04:00 04:00 11:35 Lymph # 0.9 L Seg Neutrophils % 77.3 H POC ABG pCO2 POC ABG pO2 78 L BUN 25 H Glucose 121 H POC Glucose Total Creatine Kinase CK-MB (CK-2) CK-MB (CK-2) Rel Index Troponin T Chest x-ray: report reviewed, image reviewed (no obvious change from prior)
--- NOTE | 2016-10-13 16:14 | Progress Note ---
Assessment and Plan Acute respiratory failure currently on bipap therapy COPD exacerbation Abnormal cardiac enzymes patient denies chest pain ECG is benign Hypertension Plan: Echocardiogram for LVEF assessment. Due to the severity of her COPD, she is not likely a candidate for aggressive and invasive cardiac evaluation and therapies. Subjective Date of service: 10/13/16 Principal diagnosis: COPD exac Interval history: Patient complains of not getting enough air. No distress noted. Currently she is on Bipap therapy. She denies chest pain. Objective Vital Signs Temp Pulse Pulse Pulse Pulse Pulse Pulse 10/13/16 16:00 100 H 10/13/16 15:00 99 H 10/13/16 14:00 89 10/13/16 13:45 98 H 10/13/16 13:39 97 H 10/13/16 13:01 93 H 10/13/16 12:00 91 H 10/13/16 11:00 94 H 10/13/16 10:00 94 H 10/13/16 09:00 93 H 10/13/16 08:00 92 H 10/13/16 07:31 100 H 10/13/16 07:27 96 H 10/13/16 07:26 96 H 10/13/16 07:00 88 10/13/16 06:00 86 10/13/16 05:09 84 10/13/16 04:36 67 67 67 67 10/13/16 04:12 98.7 F 10/13/16 04:01 10/13/16 03:01 10/13/16 02:12 88 10/13/16 02:01 10/13/16 02:00 85 10/13/16 01:01 10/13/16 00:20 98.0 F 10/13/16 00:09 10/12/16 23:34 83 83 83 10/12/16 23:04 87 10/12/16 22:05 87 10/12/16 22:00 87 10/12/16 20:21 76 82 10/12/16 20:11 80 10/12/16 20:09 77 10/12/16 20:00 78 87 87 87 87 10/12/16 19:51 74 10/12/16 19:44 97.5 F L 10/12/16 19:41 10/12/16 19:30 77 10/12/16 19:21 74 10/12/16 19:11 81 10/12/16 19:01 10/12/16 19:00 72 10/12/16 18:51 79 10/12/16 18:41 79 10/12/16 18:31 78 10/12/16 18:21 82 10/12/16 18:11 76 10/12/16 18:01 102 H 10/12/16 18:00 80 10/12/16 17:53 98 H 10/12/16 17:51 82 10/12/16 17:41 77 10/12/16 17:30 79 10/12/16 17:21 82 10/12/16 17:11 87 10/12/16 17:00 82 10/12/16 16:51 10/12/16 16:41 82 10/12/16 16:30 84 10/12/16 16:21 98 H 10/12/16 16:12 115 H Pulse Resp Resp BP Pulse Ox 10/13/16 16:00 32 H 150/81 94 10/13/16 15:00 46 H 172/102 95 10/13/16 14:00 21 138/85 95 10/13/16 13:45 30 H 10/13/16 13:39 32 H 10/13/16 13:01 20 154/88 94 10/13/16 12:00 33 H 131/81 95 10/13/16 11:00 28 H 164/89 95 10/13/16 10:00 44 H 149/92 95 10/13/16 09:00 42 H 150/93 94 10/13/16 08:00 30 H 152/86 96 10/13/16 07:31 26 H 10/13/16 07:27 26 H 96 10/13/16 07:26 26 H 10/13/16 07:00 30 H 138/86 98 10/13/16 06:00 17 136/77 98 10/13/16 05:09 29 H 98 10/13/16 04:36 22 10/13/16 04:12 10/13/16 04:01 131/68 96 10/13/16 03:01 131/68 97 10/13/16 02:12 21 10/13/16 02:01 131/68 91 10/13/16 02:00 21 10/13/16 01:01 131/68 99 10/13/16 00:20 04/04/17 00:09 131/68 94 10/12/16 23:34 83 34 H 97 10/12/16 23:04 77/45 10/12/16 22:05 77/45 10/12/16 22:00 10/12/16 20:21 18 21 131/68 90 10/12/16 20:11 14 131/68 88 10/12/16 20:09 21 10/12/16 20:00 87 35 H 131/68 96 10/12/16 19:51 12 143/74 95 10/12/16 19:44 10/12/16 19:41 24 143/74 91 10/12/16 19:30 15 143/74 88 10/12/16 19:21 20 139/83 92 10/12/16 19:11 17 139/83 87 10/12/16 19:01 46 H 10/12/16 19:00 17 139/83 94 10/12/16 18:51 16 153/74 87 10/12/16 18:41 16 153/74 95 10/12/16 18:31 15 153/74 93 10/12/16 18:21 16 127/64 93 10/12/16 18:11 14 127/64 90 10/12/16 18:01 131/82 10/12/16 18:00 7 L 127/64 88 10/12/16 17:53 28 H 10/12/16 17:51 15 139/82 90 10/12/16 17:41 12 139/82 87 10/12/16 17:30 18 139/82 89 10/12/16 17:21 18 148/88 87 10/12/16 17:11 22 148/88 87 10/12/16 17:00 18 148/88 92 10/12/16 16:51 17 150/79 89 10/12/16 16:41 17 150/79 91 10/12/16 16:30 20 150/79 92 10/12/16 16:21 23 100/61 93 10/12/16 16:12 100/61 - Physical Examination General: No Apparent Distress HEENT: Positive: PERRL Neck: Positive: neck supple Cardiac: Positive: Tachycardia Extremities: Absent: edema - Labs and Meds Cardiac Enzymes 10/12/16 10/12/16 Range/Units 15:46 18:00 CK-MB (CK-2) 21.0 H 21.8 H (0.0-4.0) ng/mL CBC 10/13/16 Range/Units 04:00 WBC 5.5 (4.5-11.0) K/mm3 RBC 4.58 (3.65-5.03) M/mm3 Hgb 14.0 (10.1-14.3) gm/dl Hct 42.7 (30.3-42.9) % Plt Count 168 (140-440) K/mm3 Lymph # 0.9 L (1.2-5.4) K/mm3 [place] # 0.3 (0.0-0.8) K/mm3 Eos # 0.0 (0.0-0.4) K/mm3 Baso # 0.0 (0.0-0.1) K/mm3 Comprehensive Metabolic Panel 10/13/16 Range/Units 04:00 Sodium 141 (137-145) mmol/L Potassium 4.2 (3.6-5.0) mmol/L Chloride 102.6 (98-107) mmol/L Carbon Dioxide 23 (22-30) mmol/L BUN 25 H (7-17) mg/dL Creatinine 0.7 (0.7-1.2) mg/dL Glucose 121 H (65-100) mg/dL Calcium 9.1 (8.4-10.2) mg/dL
--- NOTE | 2016-10-13 17:47 | Progress Note ---
Assessment and Plan Assessment and plan: --Acute on chronic hypoxic hypercapnic respiratory failure Continue BiPAP, titrated to O2 sats more than 90% Tapering doses of IV steroids, nebulizers inhalation steroids IV antibiotics Pulmonary following, ABG reviewed --Acute exacerbation of COPD with acute bronchitis Oxygen, nebulizers IV steroids, IV antibiotics, inhalation steroids Pulmonary consultation --Non-ST elevation [place] Patient denies any chest pain, cardiology following, medical management aspirin and CHRISTIANA inhibitor, nitrates and statins Hold beta blockers in view of COPD exacerbation and acute respiratory failure --Elevated D dimers Patient is unstable to get CT angiogram of the chest patient is already on full dose anticoagulation for non-ST elevation [place] We will obtain chest CT to rule out PE once patient is more stable, --Malignant hypertension Resume home antihypertensives, when necessary hydralazine --DVT prophylaxis patient is already on Lovenox --Full CODE STATUS Consults and recommendations noted and appreciated Plan of care discussed with the patient, her nurse as well as the case management Critical care time 31 minutes History Interval history: Patient seen and evaluated this morning ICU medical records reviewed Remains in respiratory distress on BiPAP, tachypneic, ABGs reviewed Alert and awake in mild distress Complaints of shortness of breath denies chest pain Hospitalist Physical - Constitutional Vitals: Temp Pulse Resp BP Pulse Ox 98.7 F 108 H 32 H 148/87 95 10/13/16 04:12 10/13/16 17:00 10/13/16 17:00 10/13/16 17:00 10/13/16 17:00 General appearance: Present: mild distress, well-nourished, other (patient is on BiPAP) - EENT Eyes: Present: PERRL, EOM intact - Neck Neck: Present: supple, normal ROM - Respiratory Respiratory effort: labored Respiratory: bilateral: diminished, rhonchi (scanty) - Cardiovascular Rhythm: regular Heart Sounds: Present: S1 & S2 - Extremities Extremities: no ischemia, pulses intact, pulses symmetrical Peripheral Pulses: within normal limits - Abdominal General gastrointestinal: soft, non-tender, non-distended, normal bowel sounds - Integumentary Integumentary: Present: clear, warm - Psychiatric Psychiatric: appropriate mood/affect, cooperative - Neurologic Neurologic: CNII-XII intact, moves all extremities Results - Labs CBC & Chem 7: 10/13/16 04:00 10/13/16 04:00 Labs: Laboratory Last Values WBC 5.5 K/mm3 (4.5-11.0) 10/13/16 04:00 RBC 4.58 M/mm3 (3.65-5.03) 10/13/16 04:00 Hgb 14.0 gm/dl (10.1-14.3) 10/13/16 04:00 Hct 42.7 % (30.3-42.9) 10/13/16 04:00 MCV 93 fl (79-97) 10/13/16 04:00 MCH 31 pg (28-32) 10/13/16 04:00 MCHC 33 % (30-34) 10/13/16 04:00 RDW 13.7 % (13.2-15.2) 10/13/16 04:00 Plt Count 168 K/mm3 (140-440) 10/13/16 04:00 Lymph % (Auto) 17.3 % (13.4-35.0) 10/13/16 04:00 [place] % (Auto) 4.7 % (0.0-7.3) 10/13/16 04:00 Eos % (Auto) 0.0 % (0.0-4.3) 10/13/16 04:00 Baso % (Auto) 0.7 % (0.0-1.8) 10/13/16 04:00 Lymph # 0.9 K/mm3 (1.2-5.4) L 10/13/16 04:00 [place] # 0.3 K/mm3 (0.0-0.8) 10/13/16 04:00 Eos # 0.0 K/mm3 (0.0-0.4) 10/13/16 04:00 Baso # 0.0 K/mm3 (0.0-0.1) 10/13/16 04:00 Seg Neutrophils % 77.3 % (40.0-70.0) H 10/13/16 04:00 Seg Neutrophils # 4.2 K/mm3 (1.8-7.7) 10/13/16 04:00 PT 12.8 Sec. (12.2-14.9) 10/12/16 05:15 INR 0.97 (0.87-1.13) 10/12/16 05:15 APTT 23.7 Sec. (24.2-36.6) L 10/12/16 05:15 D-Dimer 379.00 ng/mlDDU (0-234) H 10/12/16 05:15 POC ABG pH 7.397 (7.35-7.45) 10/13/16 11:35 POC ABG pCO2 43.0 (35-45) 10/13/16 11:35 POC ABG pO2 78 (80-105) L 10/13/16 11:35 POC ABG HCO3 26.5 10/13/16 11:35 POC ABG Total CO2 28 10/13/16 11:35 POC ABG O2 Sat 95 10/13/16 11:35 POC ABG Base Excess 2 10/13/16 11:35 FiO2 35 % 10/13/16 11:35 Sodium 141 mmol/L (137-145) 10/13/16 04:00 Potassium 4.2 mmol/L (3.6-5.0) 10/13/16 04:00 Chloride 102.6 mmol/L (98-107) 10/13/16 04:00 Carbon Dioxide 23 mmol/L (22-30) 10/13/16 04:00 Anion Gap 20 mmol/L 10/13/16 04:00 BUN 25 mg/dL (7-17) H 10/13/16 04:00 Creatinine 0.7 mg/dL (0.7-1.2) 10/13/16 04:00 Estimated GFR > 60 ml/min 10/13/16 04:00 BUN/Creatinine Ratio 35.71 % 10/13/16 04:00 Glucose 121 mg/dL (65-100) H 10/13/16 04:00 POC Glucose 161 (70-105) H 10/12/16 18:18 Lactic Acid 2.2 mmol/L (0.7-2.0) H* 10/12/16 06:02 Calcium 9.1 mg/dL (8.4-10.2) 10/13/16 04:00 Phosphorus 3.9 mg/dL (2.5-4.5) 10/13/16 04:00 Magnesium 2.1 mg/dL (1.7-2.3) 10/13/16 04:00 Total Bilirubin 0.3 mg/dL (0.1-1.2) 10/12/16 05:15 AST 99 units/L (5-40) H 10/12/16 05:15 ALT 98 units/L (7-56) H 10/12/16 05:15 Alkaline Phosphatase 106 units/L (35-129) 10/12/16 05:15 Total Creatine Kinase 300 units/L (30-135) H 10/12/16 18:00 CK-MB (CK-2) 21.8 ng/mL (0.0-4.0) H 10/12/16 18:00 CK-MB (CK-2) Rel Index 7.2 (0-4) H 10/12/16 18:00 Troponin T 0.209 ng/mL (0.00-0.029) H* D 10/12/16 18:00 Total Protein 7.7 g/dL (6.3-8.2) 10/12/16 05:15 Albumin 4.2 g/dL (3.9-5) 10/12/16 05:15 Albumin/Globulin Ratio 1.2 % 10/12/16 05:15 Triglycerides 63 mg/dL (2-149) 10/12/16 05:15 Cholesterol 231 mg/dL (50-199) H 10/12/16 05:15 LDL Cholesterol Direct 126 mg/dL (50-130) 10/12/16 05:15 HDL Cholesterol 93 mg/dL (40-59) H 10/12/16 05:15 Cholesterol/HDL Ratio 2.48 % 10/12/16 05:15 Urine Color Yellow (Yellow) 10/12/16 08:27 Urine Turbidity Clear (Clear) 10/12/16 08:27 Urine pH 5.0 (5.0-7.0) 10/12/16 08:27 Ur Specific [place] 1.020 (1.003-1.030) 10/12/16 08:27 Urine Protein 100 mg/dl mg/dL (Negative) 10/12/16 08:27 Urine Glucose (UA) Neg mg/dL (Negative) 10/12/16 08:27 Urine Ketones Neg mg/dL (Negative) 10/12/16 08:27 Urine Blood Neg (Negative) 10/12/16 08:27 Urine Nitrite Pos (Negative) 10/12/16 08:27 Urine Bilirubin Neg (Negative) 10/12/16 08:27 Urine Urobilinogen < 2.0 mg/dL (<2.0) 10/12/16 08:27 Ur Leukocyte Esterase Neg (Negative) 10/12/16 08:27 Urine WBC (Auto) 4.0 /HPF (0.0-6.0) 10/12/16 08:27 Urine RBC (Auto) 3.0 /HPF (0.0-6.0) 10/12/16 08:27 Hyaline Casts 1 /LPF 10/12/16 08:27 Urine Yeast (Budding) 1+ /HPF 10/12/16 08:27
[2016-10-13] MEDS: COREG PO SCH (22:05)
[2016-10-13] MEDS: SINGULAIR PO SCH (22:37)
[2016-10-14] MEDS: DUONEB 0.5 MG-3 MG/3 ML SOLN IH SCH ×4 (03:40→20:03)
[2016-10-14 04:28] LABS: Basophils % (Auto) 0.6 % (0.0-1.8); Hematocrit 46.9 % (30.3-42.9); Hemoglobin 15.3 gm/dl (10.1-14.3); Mean Corpuscular HGB Conc 33 % (30-34); Mean Corpuscular Hemoglobin 30 pg (28-32); Mean Corpuscular Volume 93 fl (79-97); Platelet Count 197 K/mm3 (140-440); Red Blood Count 5.05 M/mm3 (3.65-5.03); White Blood Count 6.7 K/mm3 (4.5-11.0)
[2016-10-14 04:49] LABS: Anion Gap 21 mmol/L; BUN/Creatinine Ratio 55.71; Blood Urea Nitrogen 39 mg/dL (7-17); Calcium 9.4 mg/dL (8.4-10.2); Carbon Dioxide 27 mmol/L (22-30); Chloride 103.2 mmol/L (98-107); Glucose 154 mg/dL (65-100); Magnesium 2.4 mg/dL (1.7-2.3); Potassium 5.1 mmol/L (3.6-5.0); Sodium 146 mmol/L (137-145)
[2016-10-14] MEDS: APRESOLINE IV SCH ×3 (06:05→21:29)
[2016-10-14] MEDS: NEURONTIN PO SCH ×3 (08:00→20:26)
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
--- NOTE | 2016-10-14 09:07 | Progress Note ---
Assessment and Plan Assessment and plan: --Acute on chronic hypoxic hypercapnic respiratory failure Remains on BiPAP, wean as tolerated, titrate O2 sats to more than 90% Tapering doses of IV steroids, nebulizers inhalation steroids IV antibiotics Pulmonary following, --Acute exacerbation of COPD with acute bronchitis Oxygen, nebulizers IV steroids, IV antibiotics, inhalation steroids Pulmonary consultation --Non-ST elevation [place] Patient denies any chest pain, cardiology following, medical management aspirin and CHRISTIANA inhibitor, nitrates and statins Hold beta blockers in view of COPD exacerbation and acute respiratory failure --Elevated D dimers patient is already on full dose anticoagulation for non-ST elevation [place] We will obtain chest CT to rule out PE once patient is more stable, --Malignant hypertension Resume home antihypertensives, when necessary hydralazine --DVT prophylaxis patient is already on Lovenox --Full CODE STATUS Plan of care discussed with the patient, her nurse as well as the case management f/u pulmonary Recommendations History Interval history: Patient Seen and evaluated in ICU this morning medical records reviewed Patient remains on BiPAP, planes of shortness of breath No new events reported by the nursing staff Hospitalist Physical - Constitutional Vitals: Temp Pulse Resp BP Pulse Ox 97.9 F 105 H 20 183/71 100 10/14/16 04:14 10/14/16 08:16 10/14/16 08:16 10/14/16 08:16 10/14/16 08:16 General appearance: Present: mild distress, well-nourished, other (patient is on BiPAP) - EENT Eyes: Present: PERRL, EOM intact - Neck Neck: Present: supple, normal ROM - Respiratory Respiratory effort: labored Respiratory: bilateral: diminished, rhonchi (occasional), wheezing - Cardiovascular Rhythm: regular Heart Sounds: Present: S1 & S2 - Extremities Extremities: no ischemia, pulses intact, pulses symmetrical - Abdominal General gastrointestinal: soft, non-tender, non-distended, normal bowel sounds - Integumentary Integumentary: Present: clear, warm - Psychiatric Psychiatric: appropriate mood/affect, cooperative - Neurologic Neurologic: CNII-XII intact, moves all extremities Results - Labs CBC & Chem 7: 10/14/16 03:49 10/14/16 03:49 Labs: Laboratory Last Values WBC 6.7 K/mm3 (4.5-11.0) 10/14/16 03:49 RBC 5.05 M/mm3 (3.65-5.03) H 10/14/16 03:49 Hgb 15.3 gm/dl (10.1-14.3) H 10/14/16 03:49 Hct 46.9 % (30.3-42.9) H 10/14/16 03:49 MCV 93 fl (79-97) 10/14/16 03:49 MCH 30 pg (28-32) 10/14/16 03:49 MCHC 33 % (30-34) 10/14/16 03:49 RDW 14.0 % (13.2-15.2) 10/14/16 03:49 Plt Count 197 K/mm3 (140-440) 10/14/16 03:49 Lymph % (Auto) 16.6 % (13.4-35.0) 10/14/16 03:49 [place] % (Auto) 5.5 % (0.0-7.3) 10/14/16 03:49 Eos % (Auto) 0.0 % (0.0-4.3) 10/14/16 03:49 Baso % (Auto) 0.6 % (0.0-1.8) 10/14/16 03:49 Lymph # 1.1 K/mm3 (1.2-5.4) L 10/14/16 03:49 [place] # 0.4 K/mm3 (0.0-0.8) 10/14/16 03:49 Eos # 0.0 K/mm3 (0.0-0.4) 10/14/16 03:49 Baso # 0.0 K/mm3 (0.0-0.1) 10/14/16 03:49 Seg Neutrophils % 77.3 % (40.0-70.0) H 10/14/16 03:49 Seg Neutrophils # 5.1 K/mm3 (1.8-7.7) 10/14/16 03:49 PT 12.8 Sec. (12.2-14.9) 10/12/16 05:15 INR 0.97 (0.87-1.13) 10/12/16 05:15 APTT 23.7 Sec. (24.2-36.6) L 10/12/16 05:15 D-Dimer 379.00 ng/mlDDU (0-234) H 10/12/16 05:15 POC ABG pH 7.397 (7.35-7.45) 10/13/16 11:35 POC ABG pCO2 43.0 (35-45) 10/13/16 11:35 POC ABG pO2 78 (80-105) L 10/13/16 11:35 POC ABG HCO3 26.5 10/13/16 11:35 POC ABG Total CO2 28 10/13/16 11:35 POC ABG O2 Sat 95 10/13/16 11:35 POC ABG Base Excess 2 10/13/16 11:35 FiO2 35 % 10/13/16 11:35 Sodium 146 mmol/L (137-145) H 10/14/16 03:49 Potassium 5.1 mmol/L (3.6-5.0) H D 10/14/16 03:49 Chloride 103.2 mmol/L (98-107) 10/14/16 03:49 Carbon Dioxide 27 mmol/L (22-30) 10/14/16 03:49 Anion Gap 21 mmol/L 10/14/16 03:49 BUN 39 mg/dL (7-17) H 10/14/16 03:49 Creatinine 0.7 mg/dL (0.7-1.2) 10/14/16 03:49 Estimated GFR > 60 ml/min 10/14/16 03:49 BUN/Creatinine Ratio 55.71 % 10/14/16 03:49 Glucose 154 mg/dL (65-100) H 10/14/16 03:49 POC Glucose 161 (70-105) H 10/12/16 18:18 Lactic Acid 2.2 mmol/L (0.7-2.0) H* 10/12/16 06:02 Calcium 9.4 mg/dL (8.4-10.2) 10/14/16 03:49 Phosphorus 3.9 mg/dL (2.5-4.5) 10/13/16 04:00 Magnesium 2.4 mg/dL (1.7-2.3) H 10/14/16 03:49 Total Bilirubin 0.3 mg/dL (0.1-1.2) 10/12/16 05:15 AST 99 units/L (5-40) H 10/12/16 05:15 ALT 98 units/L (7-56) H 10/12/16 05:15 Alkaline Phosphatase 106 units/L (35-129) 10/12/16 05:15 Total Creatine Kinase 300 units/L (30-135) H 10/12/16 18:00 CK-MB (CK-2) 21.8 ng/mL (0.0-4.0) H 10/12/16 18:00 CK-MB (CK-2) Rel Index 7.2 (0-4) H 10/12/16 18:00 Troponin T 0.209 ng/mL (0.00-0.029) H* D 10/12/16 18:00 Total Protein 7.7 g/dL (6.3-8.2) 10/12/16 05:15 Albumin 4.2 g/dL (3.9-5) 10/12/16 05:15 Albumin/Globulin Ratio 1.2 % 10/12/16 05:15 Triglycerides 63 mg/dL (2-149) 10/12/16 05:15 Cholesterol 231 mg/dL (50-199) H 10/12/16 05:15 LDL Cholesterol Direct 126 mg/dL (50-130) 10/12/16 05:15 HDL Cholesterol 93 mg/dL (40-59) H 10/12/16 05:15 Cholesterol/HDL Ratio 2.48 % 10/12/16 05:15 Urine Color Yellow (Yellow) 10/12/16 08:27 Urine Turbidity Clear (Clear) 10/12/16 08:27 Urine pH 5.0 (5.0-7.0) 10/12/16 08:27 Ur Specific [place] 1.020 (1.003-1.030) 10/12/16 08:27 Urine Protein 100 mg/dl mg/dL (Negative) 10/12/16 08:27 Urine Glucose (UA) Neg mg/dL (Negative) 10/12/16 08:27 Urine Ketones Neg mg/dL (Negative) 10/12/16 08:27 Urine Blood Neg (Negative) 10/12/16 08:27 Urine Nitrite Pos (Negative) 10/12/16 08:27 Urine Bilirubin Neg (Negative) 10/12/16 08:27 Urine Urobilinogen < 2.0 mg/dL (<2.0) 10/12/16 08:27 Ur Leukocyte Esterase Neg (Negative) 10/12/16 08:27 Urine WBC (Auto) 4.0 /HPF (0.0-6.0) 10/12/16 08:27 Urine RBC (Auto) 3.0 /HPF (0.0-6.0) 10/12/16 08:27 Hyaline Casts 1 /LPF 10/12/16 08:27 Urine Yeast (Budding) 1+ /HPF 10/12/16 08:27
[2016-10-14] MEDS: MORPHINE IV PRN ×2 (09:55→21:31)
[2016-10-14] MEDS: FISH OIL PO SCH (10:00)
--- NOTE | 2016-10-14 12:32 | Progress Note ---
Assessment and Plan Acute respiratory failure currently on bipap therapy COPD exacerbation Abnormal cardiac enzymes patient denies chest pain ECG is benign Hypertension EF 40-45% on echocardiogram Conservative cardiac management. Subjective Date of service: 10/14/16 Principal diagnosis: COPD exac Interval history: No interval changes. Objective Vital Signs Temp Pulse Pulse Resp Resp BP Pulse Ox 10/14/16 09:00 96 H 24 144/70 98 10/14/16 08:16 105 H 20 183/71 100 10/14/16 08:14 98 H 25 H 10/14/16 08:00 97.7 F 104 H 32 H 138/71 96 10/14/16 07:00 101 H 24 152/87 97 10/14/16 06:05 103 H 162/75 10/14/16 06:00 101 H 29 H 162/72 96 10/14/16 05:00 85 25 H 155/89 98 10/14/16 04:14 97.9 F 10/14/16 04:13 97.9 F 10/14/16 04:00 97.9 F 93 H 24 162/73 97 10/14/16 03:40 92 H 20 10/14/16 03:30 92 H 20 10/14/16 03:00 93 H 27 H 137/93 99 10/14/16 02:00 92 H 23 133/84 98 10/14/16 01:00 92 H 22 133/84 95 10/14/16 00:00 96 H 20 142/93 99 10/13/16 23:45 97.8 F 10/13/16 23:14 98 H 26 H 142/93 98 10/13/16 23:00 96 H 28 H 138/92 96 10/13/16 22:08 96 H 138/94 10/13/16 22:00 97 H 30 H 138/92 10/13/16 21:00 101 H 27 H 140/94 96 10/13/16 20:18 100 H 25 H 140/94 98 10/13/16 20:10 101 H 25 H 10/13/16 20:00 101 H 99 H 36 H 25 H 184/107 96 10/13/16 19:57 97.6 F 10/13/16 19:00 102 H 17 138/83 10/13/16 18:00 103 H 20 142/82 95 10/13/16 17:00 108 H 32 H 148/87 95 10/13/16 16:00 100 H 32 H 150/81 94 10/13/16 15:00 99 H 46 H 172/102 95 10/13/16 14:28 102 H 182/90 10/13/16 14:00 89 21 138/85 95 10/13/16 13:45 98 H 30 H 10/13/16 13:39 97 H 32 H 10/13/16 13:01 93 H 20 154/88 94 - Physical Examination General: No Apparent Distress HEENT: Positive: PERRL Neck: Positive: neck supple Cardiac: Positive: Reg Rate and Rhythm Extremities: Absent: edema - Labs and Meds CBC 10/14/16 Range/Units 03:49 WBC 6.7 (4.5-11.0) K/mm3 RBC 5.05 H (3.65-5.03) M/mm3 Hgb 15.3 H (10.1-14.3) gm/dl Hct 46.9 H (30.3-42.9) % Plt Count 197 (140-440) K/mm3 Lymph # 1.1 L (1.2-5.4) K/mm3 Dunn # 0.4 (0.0-0.8) K/mm3 Eos # 0.0 (0.0-0.4) K/mm3 Baso # 0.0 (0.0-0.1) K/mm3 Comprehensive Metabolic Panel 10/14/16 Range/Units 03:49 Sodium 146 H (137-145) mmol/L Potassium 5.1 H D (3.6-5.0) mmol/L Chloride 103.2 (98-107) mmol/L Carbon Dioxide 27 (22-30) mmol/L BUN 39 H (7-17) mg/dL Creatinine 0.7 (0.7-1.2) mg/dL Glucose 154 H (65-100) mg/dL Calcium 9.4 (8.4-10.2) mg/dL
--- NOTE | 2016-10-14 13:22 | Progress Note ---
Assessment and Plan Imp: 1. Acute bronchitis 2. COPD exac. 3. A/C respiratory failure, hypoxia and hypercapnea 4. Anxiety Rec: 1. Solumedrol same dose today; cont. Levaquin/Duonebs/Pulmicort/Brovana/ Singulair 2. IV Ativan/Morphine for anxiety and chest pain, respectively 3. Can get CTA chest when more stable although PE doubtful; covering with therapeutic Lovenox for now 4. Wean O2 as tolerated; BIPAP prn 5. Will try to review office records/PFTs 6. Keep in ICU another 24 hours 7. Complex decision making/patient Plan of care reviewed w/ patient, she understands/agrees Subjective Date of service: 10/14/16 Principal diagnosis: COPD exac Interval history: SOB better. Chest pain better. + Wheezing. On VM now. + Anxiety. Active Medications Albuterol (Proventil) 2.5 mg IH Q3HRT PRN PRN Reason: Shortness Of Breath Albuterol/Ipratropium (Duoneb 0.5 Mg-3 Mg/3 Ml Soln) 1 ampul IH Q6HRT [facility] Last Admin: 10/14/16 08:13 Dose: 1 ampul Amlodipine Besylate (Norvasc) 5 mg PO QDAY [facility] Last Admin: 10/12/16 11:46 Dose: Not Given Aspirin (Aspirin) 325 mg PO QDAY [facility] Last Admin: 10/13/16 10:32 Dose: Not Given Atorvastatin Calcium (Lipitor) 40 mg PO QHS [facility] Last Admin: 10/13/16 22:37 Dose: Not Given Carvedilol (Coreg) 3.125 mg PO BID [facility] Last Admin: 10/13/16 22:05 Dose: Not Given Budesonide 0.5 mg/ (Arformoterol Tartrate 15 mcg) 0 mg IH Q12HRT [facility] Enoxaparin Sodium (Lovenox) 60 mg 1 mg/kg (60 mg) SUB-Q Q12HR [facility] Last Admin: 10/13/16 22:37 Dose: 60 mg Fish Oil (Fish Oil) 1,000 mg PO QDAY [facility] Last Admin: 10/13/16 10:33 Dose: Not Given Gabapentin (Neurontin) 300 mg PO TID [facility] Last Admin: 10/13/16 21:20 Dose: Not Given Hydralazine HCl (Apresoline) 10 mg IV Q4HR PRN PRN Reason: Hypertension Hydralazine HCl (Apresoline) 10 mg IV Q8HR [facility] Last Admin: 10/14/16 06:05 Dose: 10 mg Levofloxacin/Dextrose (Levaquin 750mg/150ml) 750 mg in 150 mls @ 100 mls/hr IV Q48H [facility] Last Admin: 10/12/16 11:56 Dose: 100 mls/hr Lisinopril (Zestril) 5 mg PO QDAY [facility] Last Admin: 10/12/16 11:47 Dose: Not Given Lorazepam (Ativan) 1 mg IV Q4H PRN PRN Reason: Anxiety Last Admin: 10/13/16 19:44 Dose: 1 mg Methylprednisolone Sodium Succinate (Solu-Medrol) 80 mg IV Q8H [facility] Last Admin: 10/13/16 23:27 Dose: 80 mg Montelukast Sodium (Singulair) 10 mg PO QHS [facility] Last Admin: 10/13/16 22:37 Dose: Not Given Morphine Sulfate (Morphine) 2 mg IV Q4H PRN PRN Reason: Pain, Moderate (4-6) Last Admin: 10/13/16 22:30 Dose: 2 mg Nitroglycerin (Nitrostat) 0.4 mg SL .Q5MIN PRN PRN Reason: Chest Pain Pantoprazole Sodium (Protonix) 40 mg PO DAILY [facility] Last Admin: 10/13/16 10:33 Dose: Not Given Objective Vital Signs - 12hr 10/14/16 10/14/16 10/14/16 02:00 03:00 03:30 Temperature Pulse Rate 92 H 93 H Pulse Rate [ 92 H Anterior Bilateral Throughout] Respiratory 23 27 H Rate Respiratory 20 Rate [Anterior Bilateral Throughout] Blood Pressure 133/84 137/93 O2 Sat by Pulse 98 99 Oximetry 10/14/16 10/14/16 10/14/16 03:40 04:00 04:13 Temperature 97.9 F 97.9 F Pulse Rate 93 H Pulse Rate [ 92 H Anterior Bilateral Throughout] Respiratory 24 Rate Respiratory 20 Rate [Anterior Bilateral Throughout] Blood Pressure 162/73 O2 Sat by Pulse 97 Oximetry 10/14/16 10/14/16 10/14/16 04:14 05:00 06:00 Temperature 97.9 F Pulse Rate 85 101 H Pulse Rate [ Anterior Bilateral Throughout] Respiratory 25 H 29 H Rate Respiratory Rate [Anterior Bilateral Throughout] Blood Pressure 155/89 162/72 O2 Sat by Pulse 98 96 Oximetry 10/14/16 10/14/16 10/14/16 06:05 07:00 08:00 Temperature 97.7 F Pulse Rate 103 H 101 H 104 H Pulse Rate [ Anterior Bilateral Throughout] Respiratory 24 32 H Rate Respiratory Rate [Anterior Bilateral Throughout] Blood Pressure 162/75 152/87 138/71 O2 Sat by Pulse 97 96 Oximetry 10/14/16 10/14/16 10/14/16 08:14 08:16 09:00 Temperature Pulse Rate 105 H 96 H Pulse Rate [ 98 H Anterior Bilateral Throughout] Respiratory 20 24 Rate Respiratory 25 H Rate [Anterior Bilateral Throughout] Blood Pressure 183/71 144/70 O2 Sat by Pulse 100 98 Oximetry Constitutional: no acute distress, alert Eyes: non-icteric ENT: oropharynx moist Neck: supple Effort: other (tachypneic) Ascultation: Bilateral: diminished breath sounds, wheezes Cardiovascular: other (tachy, RR; no mrg) Gastrointestinal: normoactive bowel sounds, soft, non-tender, non-distended Integumentary: normal Extremities: no cyanosis, no edema, pink and warm Neurologic: normal mental status, non-focal exam, pupils equal and round, CN II- XII normal Psychiatric: mood appropriate, affect normal CBC and BMP: 10/14/16 03:49 10/14/16 03:49 ABG, PT/INR, D-dimer: ABG POC ABG pH 7.397 (7.35-7.45) 10/13/16 11:35 POC ABG pCO2 43.0 (35-45) 10/13/16 11:35 POC ABG pO2 78 (80-105) L 10/13/16 11:35 POC ABG HCO3 26.5 10/13/16 11:35 POC ABG Total CO2 28 10/13/16 11:35 POC ABG O2 Sat 95 10/13/16 11:35 PT/INR, D-dimer PT 12.8 Sec. (12.2-14.9) 10/12/16 05:15 INR 0.97 (0.87-1.13) 10/12/16 05:15 D-Dimer 379.00 ng/mlDDU (0-234) H 10/12/16 05:15 Abnormal lab findings: Abnormal Labs 10/12/16 10/12/16 10/12/16 11:19 12:27 15:46 RBC Hgb Hct Lymph # Seg Neutrophils % POC ABG pCO2 POC ABG pO2 Sodium Potassium BUN Glucose POC Glucose 149 H Magnesium Total Creatine Kinase 292 H CK-MB (CK-2) 21.0 H CK-MB (CK-2) Rel Index 7.1 H Troponin T 0.547 H* D 0.488 H* 10/12/16 10/12/16 10/12/16 18:00 18:18 18:38 RBC Hgb Hct Lymph # Seg Neutrophils % POC ABG pCO2 47.4 H POC ABG pO2 68 L Sodium Potassium BUN Glucose POC Glucose 161 H Magnesium Total Creatine Kinase 300 H CK-MB (CK-2) 21.8 H CK-MB (CK-2) Rel Index 7.2 H Troponin T 0.209 H* D 10/13/16 10/13/16 10/13/16 04:00 04:00 11:35 RBC Hgb Hct Lymph # 0.9 L Seg Neutrophils % 77.3 H POC ABG pCO2 POC ABG pO2 78 L Sodium Potassium BUN 25 H Glucose 121 H POC Glucose Magnesium Total Creatine Kinase CK-MB (CK-2) CK-MB (CK-2) Rel Index Troponin T 10/14/16 10/14/16 03:49 03:49 RBC 5.05 H Hgb 15.3 H Hct 46.9 H Lymph # 1.1 L Seg Neutrophils % 77.3 H POC ABG pCO2 POC ABG pO2 Sodium 146 H Potassium 5.1 H D BUN 39 H Glucose 154 H POC Glucose Magnesium 2.4 H Total Creatine Kinase CK-MB (CK-2) CK-MB (CK-2) Rel Index Troponin T Chest x-ray: report reviewed, image reviewed (no change; lungs clear)
[2016-10-14] MEDS: LEVAQUIN 750MG/150ML 750 MG/150 ML BAG IV SCH (17:05)
[2016-10-14] MEDS: ZESTRIL PO SCH (17:06)
[2016-10-14] MEDS: ASPIRIN PO SCH (17:06)
[2016-10-14] MEDS: PROTONIX PO SCH (17:07)
[2016-10-14] MEDS: COREG PO SCH ×2 (17:07→21:30)
[2016-10-14] MEDS: NORVASC PO SCH (17:08)
[2016-10-14] MEDS: LOVENOX SUB-Q SCH ×2 (17:09→21:30)
[2016-10-14] MEDS: ATIVAN IV PRN (17:09)
[2016-10-14] MEDS: SINGULAIR PO SCH (21:29)
[2016-10-15] MEDS: DUONEB 0.5 MG-3 MG/3 ML SOLN IH SCH ×4 (01:00→20:36)
[2016-10-15] MEDS: APRESOLINE IV SCH ×2 (05:58→13:48)
[2016-10-15 06:00] LABS: Basophils % (Auto) 0.5 % (0.0-1.8); Hematocrit 44.4 % (30.3-42.9); Hemoglobin 14.5 gm/dl (10.1-14.3); Mean Corpuscular HGB Conc 33 % (30-34); Mean Corpuscular Hemoglobin 31 pg (28-32); Mean Corpuscular Volume 94 fl (79-97); Platelet Count 176 K/mm3 (140-440); Red Blood Count 4.75 M/mm3 (3.65-5.03); Red Cell Distribution Width 13.9 % (13.2-15.2); White Blood Count 5.3 K/mm3 (4.5-11.0)
[2016-10-15 06:04] LABS: Anion Gap 17 mmol/L; BUN/Creatinine Ratio 54.28; Blood Urea Nitrogen 38 mg/dL (7-17); Calcium 8.7 mg/dL (8.4-10.2); Carbon Dioxide 27 mmol/L (22-30); Chloride 103.9 mmol/L (98-107); Glucose 150 mg/dL (65-100); Magnesium 2.3 mg/dL (1.7-2.3); Potassium 4.1 mmol/L (3.6-5.0); Sodium 144 mmol/L (137-145)
[2016-10-15] MEDS: NEURONTIN PO SCH ×3 (08:00→19:56)
--- NOTE | 2016-10-15 08:08 | Progress Note ---
Assessment and Plan - Patient Problems (1) Hyperlipidemia Current Visit: Yes Status: Acute Qualifiers: Hyperlipidemia type: H (2) Hyperlipidemia LDL goal <100 Current Visit: Yes Status: Acute (3) Non-ST elevated myocardial infarction (non-STEMI) Current Visit: Yes Status: Acute (4) COPD exacerbation Current Visit: Yes Status: Acute (5) Respiratory failure Current Visit: Yes Status: Acute Qualifiers: Chronicity: C Respiratory failure complication: R Subjective Date of service: 10/15/16 Principal diagnosis: COPD exac Interval history: BREATHING OK,,,ON O2,,,NO CP Objective Vital Signs Temp Pulse Pulse Pulse Resp Resp BP 10/15/16 07:35 98.3 F 10/15/16 06:00 93 H 28 H 119/65 10/15/16 05:58 90 119/65 10/15/16 05:00 95 H 22 119/65 10/15/16 04:00 98.7 F 96 H 95 H 132/70 10/15/16 03:00 97 H 132/70 10/15/16 02:00 103 H 132/70 10/15/16 01:09 99 H 28 H 10/15/16 01:01 98 H 24 10/15/16 01:00 98 H 29 H 126/61 10/15/16 00:00 97 H 99 H 22 132/73 10/14/16 23:46 98.0 F 10/14/16 23:00 97 H 26 H 129/56 10/14/16 22:00 100 H 19 113/60 10/14/16 21:31 28 H 10/14/16 21:30 102 H 113/62 10/14/16 21:29 102 H 113/62 10/14/16 21:00 98 H 25 H 120/63 10/14/16 20:20 101 H 29 H 10/14/16 20:00 96 H 96 H 97 H 21 24 120/63 10/14/16 19:50 97.3 F L 10/14/16 19:00 99 H 22 107/65 10/14/16 18:09 132/70 10/14/16 18:02 105 H 22 112/65 10/14/16 18:00 106 H 15 137/75 10/14/16 17:08 103 H 147/75 10/14/16 17:07 103 H 147/75 10/14/16 17:06 103 H 149/75 10/14/16 17:00 102 H 25 H 137/75 10/14/16 16:00 97.4 F L 107 H 25 H 125/72 10/14/16 15:00 98 H 16 144/78 10/14/16 14:49 94 H 19 10/14/16 14:00 93 H 17 127/74 10/14/16 13:00 94 H 20 138/77 10/14/16 12:00 97.7 F 97 H 33 H 138/77 10/14/16 11:00 96 H 17 128/68 10/14/16 10:00 104 H 36 H 137/68 10/14/16 09:00 96 H 24 144/70 10/14/16 08:16 105 H 20 183/71 10/14/16 08:14 98 H 25 H Pulse Ox 10/15/16 07:35 10/15/16 06:00 99 10/15/16 05:58 10/15/16 05:00 99 10/15/16 04:00 96 10/15/16 03:00 98 10/15/16 02:00 94 10/15/16 01:09 10/15/16 01:01 10/15/16 01:00 98 10/15/16 00:00 96 10/14/16 23:46 10/14/16 23:00 98 10/14/16 22:00 99 10/14/16 21:31 10/14/16 21:30 10/14/16 21:29 10/14/16 21:00 99 10/14/16 20:20 10/14/16 20:00 97 10/14/16 19:50 10/14/16 19:00 98 10/14/16 18:09 10/14/16 18:02 96 10/14/16 18:00 97 10/14/16 17:08 10/14/16 17:07 10/14/16 17:06 10/14/16 17:00 90 10/14/16 16:00 94 10/14/16 15:00 100 10/14/16 14:49 10/14/16 14:00 99 10/14/16 13:00 98 10/14/16 12:00 96 10/14/16 11:00 96 10/14/16 10:00 93 10/14/16 09:00 98 10/14/16 08:16 100 10/14/16 08:14 - Physical Examination General: No Apparent Distress HEENT: Positive: PERRL Neck: Positive: neck supple Cardiac: Positive: Reg Rate and Rhythm Lungs: Positive: Rhonchi Neuro: Positive: Grossly Intact Abdomen: Positive: Soft Skin: Positive: Clear Extremities: Absent: edema - Labs and Meds CBC 10/15/16 Range/Units 05:22 WBC 5.3 (4.5-11.0) K/mm3 RBC 4.75 (3.65-5.03) M/mm3 Hgb 14.5 H (10.1-14.3) gm/dl Hct 44.4 H (30.3-42.9) % Plt Count 176 (140-440) K/mm3 Lymph # 0.7 L (1.2-5.4) K/mm3 [place] # 0.3 (0.0-0.8) K/mm3 Eos # 0.0 (0.0-0.4) K/mm3 Baso # 0.0 (0.0-0.1) K/mm3 Comprehensive Metabolic Panel 10/15/16 Range/Units 05:22 Sodium 144 (137-145) mmol/L Potassium 4.1 (3.6-5.0) mmol/L Chloride 103.9 (98-107) mmol/L Carbon Dioxide 27 (22-30) mmol/L BUN 38 H (7-17) mg/dL Creatinine 0.7 (0.7-1.2) mg/dL Glucose 150 H (65-100) mg/dL Calcium 8.7 (8.4-10.2) mg/dL
[2016-10-15] MEDS: FISH OIL PO SCH (11:00)
[2016-10-15] MEDS: LOVENOX SUB-Q SCH ×2 (11:00→23:01)
[2016-10-15] MEDS: PROTONIX PO SCH (11:00)
[2016-10-15] MEDS: ASPIRIN PO SCH (11:00)
[2016-10-15] MEDS: ZESTRIL PO SCH (11:00)
[2016-10-15] MEDS: NORVASC PO SCH (11:00)
[2016-10-15] MEDS: COREG PO SCH ×2 (11:00→23:01)
--- NOTE | 2016-10-15 13:25 | Progress Note ---
Assessment and Plan Imp: 1. Acute bronchitis 2. COPD exac. 3. A/C respiratory failure, hypoxia and hypercapnea 4. Anxiety Rec: 1. Solumedrol same dose today; cont. Levaquin/Duonebs/Pulmicort/Brovana/ Singulair 2. IV Ativan/Morphine PRN for anxiety and chest pain, respectively 3. Needs CTA chest; covering with therapeutic Lovenox for now 4. Wean O2 as tolerated; BIPAP prn 5. Will try to review office records/PFTs 6. Significantly improved pulm-parker, off BIPAP > 24 hours, now comfortable on nasal cannula; believe she can transfer to the floor w/ telemetry Plan of care reviewed w/ patient, she understands/agrees Subjective Date of service: 10/15/16 Principal diagnosis: COPD exac Interval history: SOB better. + Wheezing. On nasal cannula 3L NC. No new complaints. Refused BIPAP overnight. Active Medications Albuterol (Proventil) 2.5 mg IH Q3HRT PRN PRN Reason: Shortness Of Breath Albuterol/Ipratropium (Duoneb 0.5 Mg-3 Mg/3 Ml Soln) 1 ampul IH Q6HRT [facility] Last Admin: 10/15/16 10:12 Dose: 1 ampul Amlodipine Besylate (Norvasc) 5 mg PO QDAY [facility] Last Admin: 10/15/16 11:00 Dose: 5 mg Aspirin (Aspirin) 325 mg PO QDAY [facility] Last Admin: 10/15/16 11:00 Dose: 325 mg Atorvastatin Calcium (Lipitor) 40 mg PO QHS [facility] Last Admin: 10/14/16 21:30 Dose: 40 mg Carvedilol (Coreg) 3.125 mg PO BID [facility] Last Admin: 10/15/16 11:00 Dose: 3.125 mg Budesonide 0.5 mg/ (Arformoterol Tartrate 15 mcg) 0 mg IH Q12HRT [facility] Enoxaparin Sodium (Lovenox) 60 mg 1 mg/kg (60 mg) SUB-Q Q12HR [facility] Last Admin: 10/15/16 11:00 Dose: 60 mg Fish Oil (Fish Oil) 1,000 mg PO QDAY [facility] Last Admin: 10/15/16 11:00 Dose: 1,000 mg Gabapentin (Neurontin) 300 mg PO TID [facility] Last Admin: 10/15/16 08:00 Dose: 300 mg Hydralazine HCl (Apresoline) 10 mg IV Q4HR PRN PRN Reason: Hypertension Hydralazine HCl (Apresoline) 10 mg IV Q8HR [facility] Last Admin: 10/15/16 05:58 Dose: 10 mg Levofloxacin/Dextrose (Levaquin 750mg/150ml) 750 mg in 150 mls @ 100 mls/hr IV Q48H [facility] Last Admin: 10/14/16 17:05 Dose: 100 mls/hr Lisinopril (Zestril) 5 mg PO QDAY [facility] Last Admin: 10/15/16 11:00 Dose: 5 mg Lorazepam (Ativan) 1 mg IV Q4H PRN PRN Reason: Anxiety Last Admin: 10/14/16 17:09 Dose: 1 mg Methylprednisolone Sodium Succinate (Solu-Medrol) 80 mg IV Q8H [facility] Last Admin: 10/15/16 08:00 Dose: 80 mg Montelukast Sodium (Singulair) 10 mg PO QHS [facility] Last Admin: 10/14/16 21:29 Dose: 10 mg Morphine Sulfate (Morphine) 2 mg IV Q4H PRN PRN Reason: Pain, Moderate (4-6) Last Admin: 10/14/16 21:31 Dose: 2 mg Nitroglycerin (Nitrostat) 0.4 mg SL .Q5MIN PRN PRN Reason: Chest Pain Pantoprazole Sodium (Protonix) 40 mg PO DAILY [facility] Last Admin: 10/15/16 11:00 Dose: 40 mg Objective Vital Signs - 12hr 10/15/16 10/15/16 10/15/16 02:00 03:00 04:00 Temperature 98.7 F Pulse Rate 103 H 97 H 96 H Pulse Rate [ Anterior Bilateral Throughout] Pulse Rate [ 95 H From Monitor] Respiratory Rate Respiratory Rate [Anterior Bilateral Throughout] Blood Pressure 132/70 132/70 132/70 O2 Sat by Pulse 94 98 96 Oximetry 10/15/16 10/15/16 10/15/16 05:00 05:58 06:00 Temperature Pulse Rate 95 H 90 93 H Pulse Rate [ Anterior Bilateral Throughout] Pulse Rate [ From Monitor] Respiratory 22 28 H Rate Respiratory Rate [Anterior Bilateral Throughout] Blood Pressure 119/65 119/65 119/65 O2 Sat by Pulse 99 99 Oximetry 10/15/16 10/15/16 10/15/16 07:00 07:35 08:00 Temperature 98.3 F Pulse Rate 91 H 101 H Pulse Rate [ Anterior Bilateral Throughout] Pulse Rate [ 92 H From Monitor] Respiratory 23 27 H Rate Respiratory Rate [Anterior Bilateral Throughout] Blood Pressure 136/67 136/67 O2 Sat by Pulse 96 100 Oximetry 10/15/16 10/15/16 10/15/16 09:00 10:00 10:12 Temperature Pulse Rate 92 H 84 Pulse Rate [ 84 Anterior Bilateral Throughout] Pulse Rate [ From Monitor] Respiratory 22 25 H Rate Respiratory 15 Rate [Anterior Bilateral Throughout] Blood Pressure 139/68 120/69 O2 Sat by Pulse 95 100 Oximetry 10/15/16 10/15/16 10/15/16 10:19 11:00 12:00 Temperature 98.7 F Pulse Rate 91 H Pulse Rate [ 83 Anterior Bilateral Throughout] Pulse Rate [ 94 H From Monitor] Respiratory 21 Rate Respiratory 15 Rate [Anterior Bilateral Throughout] Blood Pressure 117/53 O2 Sat by Pulse 100 94 Oximetry Constitutional: no acute distress, alert Eyes: non-icteric ENT: oropharynx moist Neck: supple Effort: normal (RR of 18-26) Ascultation: Bilateral: wheezes (better air movement) Cardiovascular: regular rate and rhythm (no mrg) Gastrointestinal: normoactive bowel sounds, soft, non-tender, non-distended Integumentary: normal Extremities: no cyanosis, no edema, pink and warm Neurologic: normal mental status, non-focal exam, pupils equal and round, CN II- XII normal Psychiatric: mood appropriate, affect normal CBC and BMP: 10/15/16 05:22 10/15/16 05:22 ABG, PT/INR, D-dimer: ABG POC ABG pH 7.397 (7.35-7.45) 10/13/16 11:35 POC ABG pCO2 43.0 (35-45) 10/13/16 11:35 POC ABG pO2 78 (80-105) L 10/13/16 11:35 POC ABG HCO3 26.5 10/13/16 11:35 POC ABG Total CO2 28 10/13/16 11:35 POC ABG O2 Sat 95 10/13/16 11:35 PT/INR, D-dimer PT 12.8 Sec. (12.2-14.9) 10/12/16 05:15 INR 0.97 (0.87-1.13) 10/12/16 05:15 D-Dimer 379.00 ng/mlDDU (0-234) H 10/12/16 05:15 Abnormal lab findings: Abnormal Labs 10/12/16 10/12/16 10/12/16 11:19 12:27 15:46 RBC Hgb Hct Lymph # Seg Neutrophils % POC ABG pCO2 POC ABG pO2 Sodium Potassium BUN Glucose POC Glucose 149 H Magnesium Total Creatine Kinase 292 H CK-MB (CK-2) 21.0 H CK-MB (CK-2) Rel Index 7.1 H Troponin T 0.547 H* D 0.488 H* 10/12/16 10/12/16 10/12/16 18:00 18:18 18:38 RBC Hgb Hct Lymph # Seg Neutrophils % POC ABG pCO2 47.4 H POC ABG pO2 68 L Sodium Potassium BUN Glucose POC Glucose 161 H Magnesium Total Creatine Kinase 300 H CK-MB (CK-2) 21.8 H CK-MB (CK-2) Rel Index 7.2 H Troponin T 0.209 H* D 10/13/16 10/13/16 10/13/16 04:00 04:00 11:35 RBC Hgb Hct Lymph # 0.9 L Seg Neutrophils % 77.3 H POC ABG pCO2 POC ABG pO2 78 L Sodium Potassium BUN 25 H Glucose 121 H POC Glucose Magnesium Total Creatine Kinase CK-MB (CK-2) CK-MB (CK-2) Rel Index Troponin T 10/14/16 10/14/16 10/15/16 03:49 03:49 05:22 RBC 5.05 H Hgb 15.3 H 14.5 H Hct 46.9 H 44.4 H Lymph # 1.1 L 0.7 L Seg Neutrophils % 77.3 H 79.0 H POC ABG pCO2 POC ABG pO2 Sodium 146 H Potassium 5.1 H D BUN 39 H Glucose 154 H POC Glucose Magnesium 2.4 H Total Creatine Kinase CK-MB (CK-2) CK-MB (CK-2) Rel Index Troponin T 10/15/16 05:22 RBC Hgb Hct Lymph # Seg Neutrophils % POC ABG pCO2 POC ABG pO2 Sodium Potassium BUN 38 H Glucose 150 H POC Glucose Magnesium Total Creatine Kinase CK-MB (CK-2) CK-MB (CK-2) Rel Index Troponin T Chest x-ray: report reviewed, image reviewed
--- NOTE | 2016-10-15 13:35 | Progress Note ---
Assessment and Plan Assessment and plan: --Acute on chronic hypoxic hypercapnic respiratory failure tolerating on vent mask, titrate O2 sats to more than 90% Tapering doses of IV steroids, nebulizers inhalation steroids IV antibiotics Bipap as needed --Acute exacerbation of COPD with acute bronchitis Oxygen, nebulizers IV steroids, IV antibiotics, inhalation steroids --Positive troponins/rule out non-ST elevation NE Patient denies any chest pain, cardiology following, nonspecific and noncardiac aspirin and CHRISTIANA inhibitor, nitrates and statins, cardiology recommended medical management Hold beta blockers in view of COPD exacerbation and acute respiratory failure --Elevated D dimers patient is already on full dose anticoagulation for non-ST elevation NE We will obtain chest CT to rule out PE once patient is more stable, --Malignant hypertension Resume home antihypertensives, when necessary hydralazine --DVT prophylaxis patient is already on Lovenox --Full CODE STATUS Patient is stable to be transferred out of ICU to telemetry Physical therapy as tolerated Possible discharge in 1-2 days home with home health if stable History Interval history: Patient seen and evaluated,med records reviewed Patient is weaned off BiPAP, on Ventimask tolerating Of BiPAP more than 24 hours, use as needed Patient denies any chest pain, complains of generalized weakness Hospitalist Physical - Constitutional Vitals: Temp Pulse Resp BP Pulse Ox 98.7 F 94 H 21 117/53 94 10/15/16 12:00 10/15/16 12:00 10/15/16 11:00 10/15/16 11:00 10/15/16 12:00 General appearance: Present: mild distress, well-nourished, other (patient is on BiPAP) - EENT Eyes: Present: PERRL, EOM intact - Neck Neck: Present: supple, normal ROM - Respiratory Respiratory effort: labored Respiratory: bilateral: diminished, wheezing - Cardiovascular Rhythm: regular Heart Sounds: Present: S1 & S2 - Extremities Extremities: no ischemia, pulses intact, pulses symmetrical Peripheral Pulses: within normal limits - Abdominal General gastrointestinal: soft, non-tender, non-distended, normal bowel sounds - Integumentary Integumentary: Present: clear, warm - Psychiatric Psychiatric: appropriate mood/affect, cooperative - Neurologic Neurologic: CNII-XII intact, moves all extremities Results - Labs CBC & Chem 7: 10/15/16 05:22 10/15/16 05:22 Labs: Laboratory Last Values WBC 5.3 K/mm3 (4.5-11.0) 10/15/16 05:22 RBC 4.75 M/mm3 (3.65-5.03) 10/15/16 05:22 Hgb 14.5 gm/dl (10.1-14.3) H 10/15/16 05:22 Hct 44.4 % (30.3-42.9) H 10/15/16 05:22 MCV 94 fl (79-97) 10/15/16 05:22 MCH 31 pg (28-32) 10/15/16 05:22 MCHC 33 % (30-34) 10/15/16 05:22 RDW 13.9 % (13.2-15.2) 10/15/16 05:22 Plt Count 176 K/mm3 (140-440) 10/15/16 05:22 Lymph % (Auto) 14.0 % (13.4-35.0) 10/15/16 05:22 [place] % (Auto) 6.5 % (0.0-7.3) 10/15/16 05:22 Eos % (Auto) 0.0 % (0.0-4.3) 10/15/16 05:22 Baso % (Auto) 0.5 % (0.0-1.8) 10/15/16 05:22 Lymph # 0.7 K/mm3 (1.2-5.4) L 10/15/16 05:22 [place] # 0.3 K/mm3 (0.0-0.8) 10/15/16 05:22 Eos # 0.0 K/mm3 (0.0-0.4) 10/15/16 05:22 Baso # 0.0 K/mm3 (0.0-0.1) 10/15/16 05:22 Seg Neutrophils % 79.0 % (40.0-70.0) H 10/15/16 05:22 Seg Neutrophils # 4.2 K/mm3 (1.8-7.7) 10/15/16 05:22 PT 12.8 Sec. (12.2-14.9) 10/12/16 05:15 INR 0.97 (0.87-1.13) 10/12/16 05:15 APTT 23.7 Sec. (24.2-36.6) L 10/12/16 05:15 D-Dimer 379.00 ng/mlDDU (0-234) H 10/12/16 05:15 POC ABG pH 7.397 (7.35-7.45) 10/13/16 11:35 POC ABG pCO2 43.0 (35-45) 10/13/16 11:35 POC ABG pO2 78 (80-105) L 10/13/16 11:35 POC ABG HCO3 26.5 10/13/16 11:35 POC ABG Total CO2 28 10/13/16 11:35 POC ABG O2 Sat 95 10/13/16 11:35 POC ABG Base Excess 2 10/13/16 11:35 FiO2 35 % 10/13/16 11:35 Sodium 144 mmol/L (137-145) 10/15/16 05:22 Potassium 4.1 mmol/L (3.6-5.0) 10/15/16 05:22 Chloride 103.9 mmol/L (98-107) 10/15/16 05:22 Carbon Dioxide 27 mmol/L (22-30) 10/15/16 05:22 Anion Gap 17 mmol/L 10/15/16 05:22 BUN 38 mg/dL (7-17) H 10/15/16 05:22 Creatinine 0.7 mg/dL (0.7-1.2) 10/15/16 05:22 Estimated GFR > 60 ml/min 10/15/16 05:22 BUN/Creatinine Ratio 54.28 % 10/15/16 05:22 Glucose 150 mg/dL (65-100) H 10/15/16 05:22 POC Glucose 161 (70-105) H 10/12/16 18:18 Lactic Acid 2.2 mmol/L (0.7-2.0) H* 10/12/16 06:02 Calcium 8.7 mg/dL (8.4-10.2) 10/15/16 05:22 Phosphorus 3.9 mg/dL (2.5-4.5) 10/13/16 04:00 Magnesium 2.3 mg/dL (1.7-2.3) 10/15/16 05:22 Total Bilirubin 0.3 mg/dL (0.1-1.2) 10/12/16 05:15 AST 99 units/L (5-40) H 10/12/16 05:15 ALT 98 units/L (7-56) H 10/12/16 05:15 Alkaline Phosphatase 106 units/L (35-129) 10/12/16 05:15 Total Creatine Kinase 300 units/L (30-135) H 10/12/16 18:00 CK-MB (CK-2) 21.8 ng/mL (0.0-4.0) H 10/12/16 18:00 CK-MB (CK-2) Rel Index 7.2 (0-4) H 10/12/16 18:00 Troponin T 0.209 ng/mL (0.00-0.029) H* D 10/12/16 18:00 Total Protein 7.7 g/dL (6.3-8.2) 10/12/16 05:15 Albumin 4.2 g/dL (3.9-5) 10/12/16 05:15 Albumin/Globulin Ratio 1.2 % 10/12/16 05:15 Triglycerides 63 mg/dL (2-149) 10/12/16 05:15 Cholesterol 231 mg/dL (50-199) H 10/12/16 05:15 LDL Cholesterol Direct 126 mg/dL (50-130) 10/12/16 05:15 HDL Cholesterol 93 mg/dL (40-59) H 10/12/16 05:15 Cholesterol/HDL Ratio 2.48 % 10/12/16 05:15 Urine Color Yellow (Yellow) 10/12/16 08:27 Urine Turbidity Clear (Clear) 10/12/16 08:27 Urine pH 5.0 (5.0-7.0) 10/12/16 08:27 Ur Specific [place] 1.020 (1.003-1.030) 10/12/16 08:27 Urine Protein 100 mg/dl mg/dL (Negative) 10/12/16 08:27 Urine Glucose (UA) Neg mg/dL (Negative) 10/12/16 08:27 Urine Ketones Neg mg/dL (Negative) 10/12/16 08:27 Urine Blood Neg (Negative) 10/12/16 08:27 Urine Nitrite Pos (Negative) 10/12/16 08:27 Urine Bilirubin Neg (Negative) 10/12/16 08:27 Urine Urobilinogen < 2.0 mg/dL (<2.0) 10/12/16 08:27 Ur Leukocyte Esterase Neg (Negative) 10/12/16 08:27 Urine WBC (Auto) 4.0 /HPF (0.0-6.0) 10/12/16 08:27 Urine RBC (Auto) 3.0 /HPF (0.0-6.0) 10/12/16 08:27 Hyaline Casts 1 /LPF 10/12/16 08:27 Urine Yeast (Budding) 1+ /HPF 10/12/16 08:27
[2016-10-15] MEDS: MORPHINE IV PRN (13:49)
[2016-10-15] MEDS: PULMICORT 0.5 MG, BROVANA NEBU 15 MCG IH SCH (14:43)
[2016-10-15] MEDS: SINGULAIR PO SCH (23:02)
[2016-10-15] MEDS: ATIVAN IV PRN (23:14)
[2016-10-16] MEDS: DUONEB 0.5 MG-3 MG/3 ML SOLN IH SCH ×4 (02:18→20:13)
[2016-10-16] MEDS: NEURONTIN PO SCH ×3 (08:00→22:09)
--- NOTE | 2016-10-16 09:43 | Progress Note ---
Assessment and Plan Acute respiratory failure COPD exacerbation Abnormal cardiac enzymes/NSTEMI patient denies chest pain ECG is benign Hypertension EF 40-45% on echocardiogram. Conservative cardiac management. Subjective Date of service: 10/16/16 Principal diagnosis: COPD exac Interval history: Patient denies chest pain. No distress noted. Objective Vital Signs Temp Pulse Pulse Pulse Pulse Pulse Pulse 10/16/16 06:10 98.4 F 80 10/16/16 02:35 80 10/16/16 02:20 82 10/16/16 01:47 97.5 F L 84 10/16/16 01:17 98.4 F 85 10/15/16 23:01 86 10/15/16 21:40 98.6 F 86 10/15/16 21:14 98.3 F 88 10/15/16 20:50 85 10/15/16 20:42 10/15/16 20:38 95 H 10/15/16 18:00 88 10/15/16 17:00 89 10/15/16 16:05 98.2 F 84 10/15/16 16:00 98.2 F 88 10/15/16 15:38 82 10/15/16 15:08 88 10/15/16 15:00 85 84 10/15/16 14:19 10/15/16 14:00 87 10/15/16 13:48 85 10/15/16 13:00 85 10/15/16 12:00 98.7 F 99 H 94 H 10/15/16 11:00 91 H 10/15/16 10:19 83 10/15/16 10:12 84 10/15/16 10:00 86 Resp Resp BP BP Pulse Ox 10/16/16 06:10 20 119/59 95 10/16/16 02:35 20 10/16/16 02:20 20 10/16/16 01:47 20 96/53 96 10/16/16 01:17 22 108/56 96 10/15/16 23:01 97/52 10/15/16 21:40 20 97/52 95 10/15/16 21:14 20 115/63 96 10/15/16 20:50 20 10/15/16 20:42 95 10/15/16 20:38 20 10/15/16 18:00 29 H 95/53 95 10/15/16 17:00 28 H 115/55 94 10/15/16 16:05 14 115/55 96 10/15/16 16:00 27 H 110/59 92 10/15/16 15:38 14 110/59 96 10/15/16 15:08 18 10/15/16 15:00 22 18 101/58 94 10/15/16 14:19 18 10/15/16 14:00 30 H 110/59 79 L 10/15/16 13:48 110/59 10/15/16 13:00 21 110/59 98 10/15/16 12:00 19 117/53 97 10/15/16 11:00 21 117/53 100 10/15/16 10:19 15 10/15/16 10:12 15 10/15/16 10:00 25 H 120/69 100 - Physical Examination General: No Apparent Distress HEENT: Positive: PERRL Neck: Positive: neck supple Cardiac: Positive: Reg Rate and Rhythm Neuro: Positive: Grossly Intact Extremities: Absent: edema
--- NOTE | 2016-10-16 14:01 | Progress Note ---
Assessment and Plan Imp: 1. Acute bronchitis 2. COPD exac. 3. A/C respiratory failure, hypoxia and hypercapnea 4. Anxiety 5. Chest pain/back pain, r/o PE/aortic dissection Rec: 1. Solumedrol -> taper; cont. Levaquin/Duonebs/Pulmicort/Brovana/Singulair 2. IV Ativan/Morphine PRN for anxiety and chest pain, respectively 3. CTA chest today; if no PE change to PPx Lovenox 4. Wean O2 as tolerated; BIPAP prn 5. Try to mobilize/ambulate as much as possible Plan of care reviewed w/ patient, she understands/agrees Subjective Date of service: 10/16/16 Principal diagnosis: COPD exac Interval history: SOB better. + Wheezing better. On nasal cannula 3L NC. No new complaints. Refused BIPAP overnight. Still with chest and back pain. Active Medications Albuterol (Proventil) 2.5 mg IH Q3HRT PRN PRN Reason: Shortness Of Breath Albuterol/Ipratropium (Duoneb 0.5 Mg-3 Mg/3 Ml Soln) 1 ampul IH Q6HRT [facility] Last Admin: 10/16/16 13:50 Dose: 1 ampul Amlodipine Besylate (Norvasc) 5 mg PO QDAY [facility] Last Admin: 10/15/16 11:00 Dose: 5 mg Aspirin (Aspirin) 325 mg PO QDAY [facility] Last Admin: 10/15/16 11:00 Dose: 325 mg Atorvastatin Calcium (Lipitor) 40 mg PO QHS [facility] Last Admin: 10/15/16 23:02 Dose: 40 mg Carvedilol (Coreg) 3.125 mg PO BID [facility] Last Admin: 10/15/16 23:01 Dose: 3.125 mg Budesonide 0.5 mg/ (Arformoterol Tartrate 15 mcg) 0 mg IH Q12HRT [facility] Last Admin: 10/15/16 14:43 Dose: Not Given Enoxaparin Sodium (Lovenox) 60 mg 1 mg/kg (60 mg) SUB-Q Q12HR [facility] Last Admin: 10/15/16 23:01 Dose: 60 mg Fish Oil (Fish Oil) 1,000 mg PO QDAY [facility] Last Admin: 10/15/16 11:00 Dose: 1,000 mg Gabapentin (Neurontin) 300 mg PO TID [facility] Last Admin: 10/15/16 19:56 Dose: 300 mg Hydralazine HCl (Apresoline) 10 mg IV Q4HR PRN PRN Reason: Hypertension Levofloxacin/Dextrose (Levaquin 750mg/150ml) 750 mg in 150 mls @ 100 mls/hr IV Q48H [facility] Last Admin: 10/14/16 17:05 Dose: 100 mls/hr Lisinopril (Zestril) 5 mg PO QDAY [facility] Last Admin: 10/15/16 11:00 Dose: 5 mg Lorazepam (Ativan) 1 mg IV Q4H PRN PRN Reason: Anxiety Last Admin: 10/15/16 23:14 Dose: 1 mg Methylprednisolone Sodium Succinate (Solu-Medrol) 40 mg IV Q8H [facility] Montelukast Sodium (Singulair) 10 mg PO QHS [facility] Last Admin: 10/15/16 23:02 Dose: 10 mg Morphine Sulfate (Morphine) 2 mg IV Q4H PRN PRN Reason: Pain, Moderate (4-6) Last Admin: 10/15/16 13:49 Dose: 2 mg Nitroglycerin (Nitrostat) 0.4 mg SL .Q5MIN PRN PRN Reason: Chest Pain Pantoprazole Sodium (Protonix) 40 mg PO DAILY [facility] Last Admin: 10/15/16 11:00 Dose: 40 mg Objective Vital Signs - 12hr 10/16/16 10/16/16 10/16/16 02:20 02:35 06:10 Temperature 98.4 F Pulse Rate [ 82 80 Anterior Bilateral Throughout] Pulse Rate [ 80 Right Dorsalis Pedis] Respiratory 20 Rate Respiratory 20 20 Rate [Anterior Bilateral Throughout] Blood Pressure 119/59 [Left Radial Artery] O2 Sat by Pulse 95 Oximetry 10/16/16 10/16/16 07:44 07:54 Temperature Pulse Rate [ 83 87 Anterior Bilateral Throughout] Pulse Rate [ Right Dorsalis Pedis] Respiratory Rate Respiratory 18 18 Rate [Anterior Bilateral Throughout] Blood Pressure [Left Radial Artery] O2 Sat by Pulse 97 Oximetry Constitutional: no acute distress, alert Eyes: non-icteric ENT: oropharynx moist Neck: supple Effort: normal Ascultation: Bilateral: diminished breath sounds, wheezes (better air movement) Cardiovascular: regular rate and rhythm (no mrg) Gastrointestinal: normoactive bowel sounds, soft, non-tender, non-distended Integumentary: normal Extremities: no cyanosis, no edema, pink and warm Neurologic: normal mental status, non-focal exam, pupils equal and round, CN II- XII normal Psychiatric: mood appropriate, affect normal CBC and BMP: 10/15/16 05:22 10/15/16 05:22 ABG, PT/INR, D-dimer: ABG POC ABG pH 7.397 (7.35-7.45) 10/13/16 11:35 POC ABG pCO2 43.0 (35-45) 10/13/16 11:35 POC ABG pO2 78 (80-105) L 10/13/16 11:35 POC ABG HCO3 26.5 10/13/16 11:35 POC ABG Total CO2 28 10/13/16 11:35 POC ABG O2 Sat 95 10/13/16 11:35 PT/INR, D-dimer PT 12.8 Sec. (12.2-14.9) 10/12/16 05:15 INR 0.97 (0.87-1.13) 10/12/16 05:15 D-Dimer 379.00 ng/mlDDU (0-234) H 10/12/16 05:15 Abnormal lab findings: Abnormal Labs 10/12/16 10/12/16 10/12/16 11:19 12:27 15:46 RBC Hgb Hct Lymph # Seg Neutrophils % POC ABG pCO2 POC ABG pO2 Sodium Potassium BUN Glucose POC Glucose 149 H Magnesium Total Creatine Kinase 292 H CK-MB (CK-2) 21.0 H CK-MB (CK-2) Rel Index 7.1 H Troponin T 0.547 H* D 0.488 H* 10/12/16 10/12/16 10/12/16 18:00 18:18 18:38 RBC Hgb Hct Lymph # Seg Neutrophils % POC ABG pCO2 47.4 H POC ABG pO2 68 L Sodium Potassium BUN Glucose POC Glucose 161 H Magnesium Total Creatine Kinase 300 H CK-MB (CK-2) 21.8 H CK-MB (CK-2) Rel Index 7.2 H Troponin T 0.209 H* D 10/13/16 10/13/16 10/13/16 04:00 04:00 11:35 RBC Hgb Hct Lymph # 0.9 L Seg Neutrophils % 77.3 H POC ABG pCO2 POC ABG pO2 78 L Sodium Potassium BUN 25 H Glucose 121 H POC Glucose Magnesium Total Creatine Kinase CK-MB (CK-2) CK-MB (CK-2) Rel Index Troponin T 10/14/16 10/14/16 10/15/16 03:49 03:49 05:22 RBC 5.05 H Hgb 15.3 H 14.5 H Hct 46.9 H 44.4 H Lymph # 1.1 L 0.7 L Seg Neutrophils % 77.3 H 79.0 H POC ABG pCO2 POC ABG pO2 Sodium 146 H Potassium 5.1 H D BUN 39 H Glucose 154 H POC Glucose Magnesium 2.4 H Total Creatine Kinase CK-MB (CK-2) CK-MB (CK-2) Rel Index Troponin T 10/15/16 05:22 RBC Hgb Hct Lymph # Seg Neutrophils % POC ABG pCO2 POC ABG pO2 Sodium Potassium BUN 38 H Glucose 150 H POC Glucose Magnesium Total Creatine Kinase CK-MB (CK-2) CK-MB (CK-2) Rel Index Troponin T Chest x-ray: report reviewed, image reviewed
[2016-10-16] MEDS: COREG PO SCH ×2 (14:15→22:09)
[2016-10-16] MEDS: NORVASC PO SCH (14:16)
[2016-10-16] MEDS: ZESTRIL PO SCH (14:16)
[2016-10-16] MEDS: ASPIRIN PO SCH (14:38)
[2016-10-16] MEDS: FISH OIL PO SCH (14:42)
[2016-10-16] MEDS: LEVAQUIN 750MG/150ML 750 MG/150 ML BAG IV SCH ×2 (14:43→20:50)
[2016-10-16] MEDS: LOVENOX SUB-Q SCH ×2 (14:45→22:08)
[2016-10-16] MEDS: PROTONIX PO SCH (14:46)
[2016-10-16] MEDS: ATIVAN IV PRN (14:47)
[2016-10-16] MEDS: MORPHINE IV PRN ×2 (15:20→22:10)
--- NOTE | 2016-10-16 16:50 | Progress Note ---
Assessment and Plan Assessment and plan: --Acute on chronic hypoxic hypercapnic respiratory failure Patient is saturating well on 3 L of nasal cannula oxygen, BiPAP as needed Continue nebulizers IV steroids antibiotics CT angiogram of the chest to rule out PE --Acute exacerbation of COPD with acute bronchitis Oxygen, nebulizers IV steroids, IV antibiotics, inhalation steroids --Positive troponins/rule out non-ST elevation [place] Nonspecific, continue current cardiac medications cardiology following --Malignant hypertension Well-controlled continue antihypertensives, when necessary hydralazine --Generalized anxiety Antianxiety medications, however patient's blood pressure is on the lower range closely monitor --DVT prophylaxis patient is already on Lovenox --Full CODE STATUS Physical therapy occupational therapy Follow CT angiogram of the chest Possible discharge home in 1-2 days with home health if needed 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 History Interval history: Patient seen and evaluated medical records reviewed Patient feels slightly better, on nasal cannula oxygen saturating well at 3 L Complaints of generalized weakness, denies any chest pain or shortness of breath Alert awake oriented 3 not in acute distress Hospitalist Physical - Constitutional Vitals: Temp Pulse Resp BP Pulse Ox 97.9 F 70 20 96/31 97 10/16/16 12:10 10/16/16 14:15 10/16/16 12:10 10/16/16 14:15 10/16/16 12:10 General appearance: Present: no acute distress, well-nourished - EENT Eyes: Present: PERRL, EOM intact - Neck Neck: Present: supple, normal ROM - Respiratory Respiratory effort: normal Respiratory: bilateral: diminished, negative: rales, rhonchi, wheezing - Cardiovascular Rhythm: regular Heart Sounds: Present: S1 & S2 - Extremities Extremities: no ischemia, pulses intact, pulses symmetrical - Abdominal General gastrointestinal: soft, non-tender, non-distended, normal bowel sounds - Integumentary Integumentary: Present: clear, warm - Psychiatric Psychiatric: appropriate mood/affect, cooperative - Neurologic Neurologic: CNII-XII intact, moves all extremities Results - Labs CBC & Chem 7: 10/15/16 05:22 10/15/16 05:22 Labs: Laboratory Last Values WBC 5.3 K/mm3 (4.5-11.0) 10/15/16 05:22 RBC 4.75 M/mm3 (3.65-5.03) 10/15/16 05:22 Hgb 14.5 gm/dl (10.1-14.3) H 10/15/16 05:22 Hct 44.4 % (30.3-42.9) H 10/15/16 05:22 MCV 94 fl (79-97) 10/15/16 05:22 MCH 31 pg (28-32) 10/15/16 05:22 MCHC 33 % (30-34) 10/15/16 05:22 RDW 13.9 % (13.2-15.2) 10/15/16 05:22 Plt Count 176 K/mm3 (140-440) 10/15/16 05:22 Lymph % (Auto) 14.0 % (13.4-35.0) 10/15/16 05:22 [place] % (Auto) 6.5 % (0.0-7.3) 10/15/16 05:22 Eos % (Auto) 0.0 % (0.0-4.3) 10/15/16 05:22 Baso % (Auto) 0.5 % (0.0-1.8) 10/15/16 05:22 Lymph # 0.7 K/mm3 (1.2-5.4) L 10/15/16 05:22 [place] # 0.3 K/mm3 (0.0-0.8) 10/15/16 05:22 Eos # 0.0 K/mm3 (0.0-0.4) 10/15/16 05:22 Baso # 0.0 K/mm3 (0.0-0.1) 10/15/16 05:22 Seg Neutrophils % 79.0 % (40.0-70.0) H 10/15/16 05:22 Seg Neutrophils # 4.2 K/mm3 (1.8-7.7) 10/15/16 05:22 PT 12.8 Sec. (12.2-14.9) 10/12/16 05:15 INR 0.97 (0.87-1.13) 10/12/16 05:15 APTT 23.7 Sec. (24.2-36.6) L 10/12/16 05:15 D-Dimer 379.00 ng/mlDDU (0-234) H 10/12/16 05:15 POC ABG pH 7.397 (7.35-7.45) 10/13/16 11:35 POC ABG pCO2 43.0 (35-45) 10/13/16 11:35 POC ABG pO2 78 (80-105) L 10/13/16 11:35 POC ABG HCO3 26.5 10/13/16 11:35 POC ABG Total CO2 28 10/13/16 11:35 POC ABG O2 Sat 95 10/13/16 11:35 POC ABG Base Excess 2 10/13/16 11:35 FiO2 35 % 10/13/16 11:35 Sodium 144 mmol/L (137-145) 10/15/16 05:22 Potassium 4.1 mmol/L (3.6-5.0) 10/15/16 05:22 Chloride 103.9 mmol/L (98-107) 10/15/16 05:22 Carbon Dioxide 27 mmol/L (22-30) 10/15/16 05:22 Anion Gap 17 mmol/L 10/15/16 05:22 BUN 38 mg/dL (7-17) H 10/15/16 05:22 Creatinine 0.7 mg/dL (0.7-1.2) 10/15/16 05:22 Estimated GFR > 60 ml/min 10/15/16 05:22 BUN/Creatinine Ratio 54.28 % 10/15/16 05:22 Glucose 150 mg/dL (65-100) H 10/15/16 05:22 POC Glucose 161 (70-105) H 10/12/16 18:18 Lactic Acid 2.2 mmol/L (0.7-2.0) H* 10/12/16 06:02 Calcium 8.7 mg/dL (8.4-10.2) 10/15/16 05:22 Phosphorus 3.9 mg/dL (2.5-4.5) 10/13/16 04:00 Magnesium 2.3 mg/dL (1.7-2.3) 10/15/16 05:22 Total Bilirubin 0.3 mg/dL (0.1-1.2) 10/12/16 05:15 AST 99 units/L (5-40) H 10/12/16 05:15 ALT 98 units/L (7-56) H 10/12/16 05:15 Alkaline Phosphatase 106 units/L (35-129) 10/12/16 05:15 Total Creatine Kinase 300 units/L (30-135) H 10/12/16 18:00 CK-MB (CK-2) 21.8 ng/mL (0.0-4.0) H 10/12/16 18:00 CK-MB (CK-2) Rel Index 7.2 (0-4) H 10/12/16 18:00 Troponin T 0.209 ng/mL (0.00-0.029) H* D 10/12/16 18:00 Total Protein 7.7 g/dL (6.3-8.2) 10/12/16 05:15 Albumin 4.2 g/dL (3.9-5) 10/12/16 05:15 Albumin/Globulin Ratio 1.2 % 10/12/16 05:15 Triglycerides 63 mg/dL (2-149) 10/12/16 05:15 Cholesterol 231 mg/dL (50-199) H 10/12/16 05:15 LDL Cholesterol Direct 126 mg/dL (50-130) 10/12/16 05:15 HDL Cholesterol 93 mg/dL (40-59) H 10/12/16 05:15 Cholesterol/HDL Ratio 2.48 % 10/12/16 05:15 Urine Color Yellow (Yellow) 10/12/16 08:27 Urine Turbidity Clear (Clear) 10/12/16 08:27 Urine pH 5.0 (5.0-7.0) 10/12/16 08:27 Ur Specific [place] 1.020 (1.003-1.030) 10/12/16 08:27 Urine Protein 100 mg/dl mg/dL (Negative) 10/12/16 08:27 Urine Glucose (UA) Neg mg/dL (Negative) 10/12/16 08:27 Urine Ketones Neg mg/dL (Negative) 10/12/16 08:27 Urine Blood Neg (Negative) 10/12/16 08:27 Urine Nitrite Pos (Negative) 10/12/16 08:27 Urine Bilirubin Neg (Negative) 10/12/16 08:27 Urine Urobilinogen < 2.0 mg/dL (<2.0) 10/12/16 08:27 Ur Leukocyte Esterase Neg (Negative) 10/12/16 08:27 Urine WBC (Auto) 4.0 /HPF (0.0-6.0) 10/12/16 08:27 Urine RBC (Auto) 3.0 /HPF (0.0-6.0) 10/12/16 08:27 Hyaline Casts 1 /LPF 10/12/16 08:27 Urine Yeast (Budding) 1+ /HPF 10/12/16 08:27
[2016-10-16] MEDS: SINGULAIR PO SCH (22:09)
[2016-10-17] MEDS: DUONEB 0.5 MG-3 MG/3 ML SOLN IH SCH ×4 (01:52→20:01)
[2016-10-17] MEDS: ATIVAN IV PRN (03:05)
[2016-10-17] MEDS: NEURONTIN PO SCH ×3 (08:00→21:46)
--- NOTE | 2016-10-17 09:06 | Progress Note ---
Assessment and Plan Assessment and plan: --Acute on chronic hypoxic hypercapnic respiratory failure requiring BiPAP, now Patient is saturating well on 3 L of nasal cannula oxygen, BiPAP as needed,Nebulizers, taper IV steroids --elevated d-dimer's ,CT angiogram negative for PE, change Lovenox to DVT prophylaxis dose --Acute exacerbation of COPD with acute bronchitis Oxygen, nebulizers IV steroids, IV antibiotics, inhalation steroids --Positive troponins/rule out non-ST elevation [place] Nonspecific, continue current cardiac medications Scheduled for Stress test, cardiology following --Malignant hypertension Well-controlled continue antihypertensives, when necessary hydralazine --Generalized anxiety Low-dose and exercise as needed --DVT prophylaxis patient is already on Lovenox --Full CODE STATUS Physical therapy occupational therapy DC planning case management possible home with home health When cleared by pulmonary and cardiology Plan of care discussed with the patient and her nurse History Interval history: Patient seen and evaluated this morning medical records reviewed No new events reported by nursing staff, patient underwent CT angiogram of the chest Negative for PE Denies any chest pain or shortness of breath, alert awake oriented 3 not in acute distress Hospitalist Physical - Constitutional Vitals: Temp Pulse Resp BP Pulse Ox 97.3 F L 84 20 155/66 96 10/17/16 07:00 10/17/16 07:00 10/17/16 07:00 10/17/16 07:00 10/17/16 07:00 General appearance: Present: no acute distress, well-nourished - EENT Eyes: Present: PERRL, EOM intact - Neck Neck: Present: supple, normal ROM - Respiratory Respiratory effort: normal Respiratory: bilateral: diminished, negative: rales, rhonchi, wheezing - Cardiovascular Rhythm: regular Heart Sounds: Present: S1 & S2 - Extremities Extremities: no ischemia, pulses intact, pulses symmetrical Peripheral Pulses: within normal limits - Abdominal General gastrointestinal: soft, non-tender, non-distended, normal bowel sounds - Integumentary Integumentary: Present: clear, warm - Psychiatric Psychiatric: appropriate mood/affect, cooperative - Neurologic Neurologic: CNII-XII intact, moves all extremities Results - Labs CBC & Chem 7: 10/15/16 05:22 10/15/16 05:22 Labs: Laboratory Last Values WBC 5.3 K/mm3 (4.5-11.0) 10/15/16 05:22 RBC 4.75 M/mm3 (3.65-5.03) 10/15/16 05:22 Hgb 14.5 gm/dl (10.1-14.3) H 10/15/16 05:22 Hct 44.4 % (30.3-42.9) H 10/15/16 05:22 MCV 94 fl (79-97) 10/15/16 05:22 MCH 31 pg (28-32) 10/15/16 05:22 MCHC 33 % (30-34) 10/15/16 05:22 RDW 13.9 % (13.2-15.2) 10/15/16 05:22 Plt Count 176 K/mm3 (140-440) 10/15/16 05:22 Lymph % (Auto) 14.0 % (13.4-35.0) 10/15/16 05:22 [place] % (Auto) 6.5 % (0.0-7.3) 10/15/16 05:22 Eos % (Auto) 0.0 % (0.0-4.3) 10/15/16 05:22 Baso % (Auto) 0.5 % (0.0-1.8) 10/15/16 05:22 Lymph # 0.7 K/mm3 (1.2-5.4) L 10/15/16 05:22 [place] # 0.3 K/mm3 (0.0-0.8) 10/15/16 05:22 Eos # 0.0 K/mm3 (0.0-0.4) 10/15/16 05:22 Baso # 0.0 K/mm3 (0.0-0.1) 10/15/16 05:22 Seg Neutrophils % 79.0 % (40.0-70.0) H 10/15/16 05:22 Seg Neutrophils # 4.2 K/mm3 (1.8-7.7) 10/15/16 05:22 PT 12.8 Sec. (12.2-14.9) 10/12/16 05:15 INR 0.97 (0.87-1.13) 10/12/16 05:15 APTT 23.7 Sec. (24.2-36.6) L 10/12/16 05:15 D-Dimer 379.00 ng/mlDDU (0-234) H 10/12/16 05:15 POC ABG pH 7.397 (7.35-7.45) 10/13/16 11:35 POC ABG pCO2 43.0 (35-45) 10/13/16 11:35 POC ABG pO2 78 (80-105) L 10/13/16 11:35 POC ABG HCO3 26.5 10/13/16 11:35 POC ABG Total CO2 28 10/13/16 11:35 POC ABG O2 Sat 95 10/13/16 11:35 POC ABG Base Excess 2 10/13/16 11:35 FiO2 35 % 10/13/16 11:35 Sodium 144 mmol/L (137-145) 10/15/16 05:22 Potassium 4.1 mmol/L (3.6-5.0) 10/15/16 05:22 Chloride 103.9 mmol/L (98-107) 10/15/16 05:22 Carbon Dioxide 27 mmol/L (22-30) 10/15/16 05:22 Anion Gap 17 mmol/L 10/15/16 05:22 BUN 38 mg/dL (7-17) H 10/15/16 05:22 Creatinine 0.7 mg/dL (0.7-1.2) 10/15/16 05:22 Estimated GFR > 60 ml/min 10/15/16 05:22 BUN/Creatinine Ratio 54.28 % 10/15/16 05:22 Glucose 150 mg/dL (65-100) H 10/15/16 05:22 POC Glucose 161 (70-105) H 10/12/16 18:18 Lactic Acid 2.2 mmol/L (0.7-2.0) H* 10/12/16 06:02 Calcium 8.7 mg/dL (8.4-10.2) 10/15/16 05:22 Phosphorus 3.9 mg/dL (2.5-4.5) 10/13/16 04:00 Magnesium 2.3 mg/dL (1.7-2.3) 10/15/16 05:22 Total Bilirubin 0.3 mg/dL (0.1-1.2) 10/12/16 05:15 AST 99 units/L (5-40) H 10/12/16 05:15 ALT 98 units/L (7-56) H 10/12/16 05:15 Alkaline Phosphatase 106 units/L (35-129) 10/12/16 05:15 Total Creatine Kinase 300 units/L (30-135) H 10/12/16 18:00 CK-MB (CK-2) 21.8 ng/mL (0.0-4.0) H 10/12/16 18:00 CK-MB (CK-2) Rel Index 7.2 (0-4) H 10/12/16 18:00 Troponin T 0.209 ng/mL (0.00-0.029) H* D 10/12/16 18:00 Total Protein 7.7 g/dL (6.3-8.2) 10/12/16 05:15 Albumin 4.2 g/dL (3.9-5) 10/12/16 05:15 Albumin/Globulin Ratio 1.2 % 10/12/16 05:15 Triglycerides 63 mg/dL (2-149) 10/12/16 05:15 Cholesterol 231 mg/dL (50-199) H 10/12/16 05:15 LDL Cholesterol Direct 126 mg/dL (50-130) 10/12/16 05:15 HDL Cholesterol 93 mg/dL (40-59) H 10/12/16 05:15 Cholesterol/HDL Ratio 2.48 % 10/12/16 05:15 Urine Color Yellow (Yellow) 10/12/16 08:27 Urine Turbidity Clear (Clear) 10/12/16 08:27 Urine pH 5.0 (5.0-7.0) 10/12/16 08:27 Ur Specific [place] 1.020 (1.003-1.030) 10/12/16 08:27 Urine Protein 100 mg/dl mg/dL (Negative) 10/12/16 08:27 Urine Glucose (UA) Neg mg/dL (Negative) 10/12/16 08:27 Urine Ketones Neg mg/dL (Negative) 10/12/16 08:27 Urine Blood Neg (Negative) 10/12/16 08:27 Urine Nitrite Pos (Negative) 10/12/16 08:27 Urine Bilirubin Neg (Negative) 10/12/16 08:27 Urine Urobilinogen < 2.0 mg/dL (<2.0) 10/12/16 08:27 Ur Leukocyte Esterase Neg (Negative) 10/12/16 08:27 Urine WBC (Auto) 4.0 /HPF (0.0-6.0) 10/12/16 08:27 Urine RBC (Auto) 3.0 /HPF (0.0-6.0) 10/12/16 08:27 Hyaline Casts 1 /LPF 10/12/16 08:27 Urine Yeast (Budding) 1+ /HPF 10/12/16 08:27
[2016-10-17] MEDS: COREG PO SCH ×2 (10:00→21:47)
[2016-10-17] MEDS ORDERED: NACL ONE (12:19)
--- NOTE | 2016-10-17 13:44 | Cat Scan Report ---
CTA CHEST: History: Chest pain, back pain. Technique: Helical CT following IV contrast. Pulmonary embolus protocol. Sagittal and coronal reformatted images. Rotational MIP images. Findings: Contrast bolus is satisfactory. No pulmonary embolus is identified. There is mild linear scarring or discoid atelectasis in the lower lung zones. Otherwise the lungs are clear. No evidence for pneumonia, pleural effusion or pneumothorax. The thyroid gland, tracheobronchial tree, esophagus, heart, pericardium, and mediastinal vessels are unremarkable. There is moderate multilevel thoracic spondylosis. No acute fracture is identified. Impression: No pulmonary embolus is identified. Linear scarring or atelectatic changes. Degenerative changes in the spine.
--- NOTE | 2016-10-17 14:04 | Progress Note ---
Assessment and Plan - Patient Problems (1) COPD exacerbation Current Visit: Yes Status: Acute Plan to address problem: Continue pulmonary management of COPD. (2) Abnormal cardiac enzyme level Current Visit: Yes Status: Acute Plan to address problem: Patient echocardiogram shows a left ventricle ejection fraction 40-45%, but with regional wall motion abnormalities suggesting possible coronary artery disease. We will recommend a predischarge pharmacologic stress test for further assessment. Due to the severity of her COPD, she is not likely a candidate for aggressive and invasive cardiac evaluation and therapies. Subjective Date of service: 10/17/16 Principal diagnosis: COPD exac Interval history: Patient looks and feels comfortable, breathing comfortably on nasal O2. Objective Vital Signs Temp Pulse Pulse Pulse Pulse Pulse Resp 10/17/16 11:43 97 F L 85 24 10/17/16 11:00 10/17/16 10:44 88 10/17/16 08:22 85 10/17/16 08:12 83 10/17/16 07:00 97.3 F L 84 20 10/17/16 06:28 97.6 F 86 20 10/17/16 02:02 95 H 10/17/16 01:53 96 H 10/17/16 01:39 98.1 F 92 H 22 10/16/16 22:09 84 10/16/16 21:34 97.8 F 84 22 10/16/16 20:25 10/16/16 20:24 83 10/16/16 20:14 94 H 10/16/16 17:30 97.9 F 88 22 10/16/16 15:50 22 10/16/16 14:15 70 Resp BP BP Pulse Ox 10/17/16 11:43 120/64 97 10/17/16 11:00 95 10/17/16 10:44 10/17/16 08:22 20 10/17/16 08:12 18 95 10/17/16 07:00 155/66 96 10/17/16 06:28 145/68 100 10/17/16 02:02 18 10/17/16 01:53 18 10/17/16 01:39 127/86 98 10/16/16 22:09 115/58 10/16/16 21:34 115/58 98 10/16/16 20:25 98 10/16/16 20:24 26 H 10/16/16 20:14 28 H 10/16/16 17:30 120/60 10/16/16 15:50 10/16/16 14:15 96/31 - Physical Examination General: No Apparent Distress HEENT: Positive: PERRL Neck: Positive: neck supple Cardiac: Positive: Reg Rate and Rhythm Lungs: Positive: Decreased Breath Sounds Neuro: Positive: Grossly Intact Abdomen: Positive: Soft Skin: Positive: Clear Extremities: Absent: edema
[2016-10-17] MEDS: PULMICORT 0.5 MG, BROVANA NEBU 15 MCG IH SCH (14:17)
[2016-10-17] MEDS: NORVASC PO SCH (14:18)
[2016-10-17] MEDS: ASPIRIN PO SCH (14:19)
[2016-10-17] MEDS: FISH OIL PO SCH (14:19)
[2016-10-17] MEDS: ZESTRIL PO SCH (14:19)
[2016-10-17] MEDS: PROTONIX PO SCH (14:19)
[2016-10-17] MEDS: LOVENOX SUB-Q SCH ×2 (14:19→21:47)
--- NOTE | 2016-10-17 15:50 | Progress Note ---
Assessment and Plan 1. Acute bronchitis 2. COPD exac. 3. A/C respiratory failure, hypoxia and hypercapnea 4. Anxiety 5. Chest pain/back pain, r/o PE/aortic dissection Rec: 1. Solumedrol -> taper; cont. Levaquin/Duonebs/Pulmicort/Brovana/Singulair 2. IV Ativan/Morphine PRN for anxiety and chest pain, respectively 3. CTA chest: no PE change to PPx Lovenox 4. Wean O2 as tolerated; BIPAP prn 5. Try to mobilize/ambulate as much as possible Subjective Date of service: 10/17/16 Principal diagnosis: COPD exac Interval history: Patient reports breathing is better but still has some cough. Objective Vital Signs - 12hr 10/17/16 10/17/16 10/17/16 06:28 07:00 08:12 Temperature 97.6 F 97.3 F L Pulse Rate Pulse Rate [ 83 Anterior Bilateral Throughout] Pulse Rate [ 86 Right Dorsalis Pedis] Pulse Rate [ 84 Right Radial] Respiratory 20 20 Rate Respiratory 18 Rate [Anterior Bilateral Throughout] Blood Pressure 145/68 155/66 [Left Radial Artery] O2 Sat by Pulse 100 96 95 Oximetry 10/17/16 10/17/16 10/17/16 08:22 10:44 11:00 Temperature Pulse Rate 88 Pulse Rate [ 85 Anterior Bilateral Throughout] Pulse Rate [ Right Dorsalis Pedis] Pulse Rate [ Right Radial] Respiratory Rate Respiratory 20 Rate [Anterior Bilateral Throughout] Blood Pressure [Left Radial Artery] O2 Sat by Pulse 95 Oximetry 10/17/16 10/17/16 10/17/16 11:43 13:53 14:03 Temperature 97 F L Pulse Rate Pulse Rate [ 83 85 Anterior Bilateral Throughout] Pulse Rate [ Right Dorsalis Pedis] Pulse Rate [ 85 Right Radial] Respiratory 24 Rate Respiratory 20 20 Rate [Anterior Bilateral Throughout] Blood Pressure 120/64 [Left Radial Artery] O2 Sat by Pulse 97 Oximetry Constitutional: no acute distress, alert Eyes: non-icteric ENT: oropharynx moist Neck: supple Effort: normal Ascultation: Bilateral: diminished breath sounds Cardiovascular: regular rate and rhythm (no mrg) Gastrointestinal: normoactive bowel sounds, soft, non-tender, non-distended Integumentary: normal Extremities: no cyanosis, no edema, pink and warm Neurologic: normal mental status, non-focal exam, pupils equal and round, CN II- XII normal Psychiatric: mood appropriate, affect normal CBC and BMP: 10/15/16 05:22 10/15/16 05:22 ABG, PT/INR, D-dimer: ABG POC ABG pH 7.397 (7.35-7.45) 10/13/16 11:35 POC ABG pCO2 43.0 (35-45) 10/13/16 11:35 POC ABG pO2 78 (80-105) L 10/13/16 11:35 POC ABG HCO3 26.5 10/13/16 11:35 POC ABG Total CO2 28 10/13/16 11:35 POC ABG O2 Sat 95 10/13/16 11:35 PT/INR, D-dimer PT 12.8 Sec. (12.2-14.9) 10/12/16 05:15 INR 0.97 (0.87-1.13) 10/12/16 05:15 D-Dimer 379.00 ng/mlDDU (0-234) H 10/12/16 05:15 Abnormal lab findings: Abnormal Labs 10/12/16 10/12/16 10/12/16 11:19 12:27 15:46 RBC Hgb Hct Lymph # Seg Neutrophils % POC ABG pCO2 POC ABG pO2 Sodium Potassium BUN Glucose POC Glucose 149 H Magnesium Total Creatine Kinase 292 H CK-MB (CK-2) 21.0 H CK-MB (CK-2) Rel Index 7.1 H Troponin T 0.547 H* D 0.488 H* 10/12/16 10/12/16 10/12/16 18:00 18:18 18:38 RBC Hgb Hct Lymph # Seg Neutrophils % POC ABG pCO2 47.4 H POC ABG pO2 68 L Sodium Potassium BUN Glucose POC Glucose 161 H Magnesium Total Creatine Kinase 300 H CK-MB (CK-2) 21.8 H CK-MB (CK-2) Rel Index 7.2 H Troponin T 0.209 H* D 10/13/16 10/13/16 10/13/16 04:00 04:00 11:35 RBC Hgb Hct Lymph # 0.9 L Seg Neutrophils % 77.3 H POC ABG pCO2 POC ABG pO2 78 L Sodium Potassium BUN 25 H Glucose 121 H POC Glucose Magnesium Total Creatine Kinase CK-MB (CK-2) CK-MB (CK-2) Rel Index Troponin T 10/14/16 10/14/16 10/15/16 03:49 03:49 05:22 RBC 5.05 H Hgb 15.3 H 14.5 H Hct 46.9 H 44.4 H Lymph # 1.1 L 0.7 L Seg Neutrophils % 77.3 H 79.0 H POC ABG pCO2 POC ABG pO2 Sodium 146 H Potassium 5.1 H D BUN 39 H Glucose 154 H POC Glucose Magnesium 2.4 H Total Creatine Kinase CK-MB (CK-2) CK-MB (CK-2) Rel Index Troponin T 10/15/16 05:22 RBC Hgb Hct Lymph # Seg Neutrophils % POC ABG pCO2 POC ABG pO2 Sodium Potassium BUN 38 H Glucose 150 H POC Glucose Magnesium Total Creatine Kinase CK-MB (CK-2) CK-MB (CK-2) Rel Index Troponin T
[2016-10-17] MEDS: XANAX PO PRN ×2 (17:26→21:46)
[2016-10-17] MEDS: ROBITUSSIN DM PO PRN (17:26)
[2016-10-17] MEDS: SINGULAIR PO SCH (21:46)
[2016-10-17] MEDS: MORPHINE IV PRN (21:48)
[2016-10-18] MEDS: DUONEB 0.5 MG-3 MG/3 ML SOLN IH SCH ×4 (01:09→21:00)
[2016-10-18] MEDS: ROBITUSSIN DM PO PRN ×2 (02:12→22:46)
[2016-10-18] MEDS: PROTONIX PO SCH ×2 (07:57→12:56)
[2016-10-18] MEDS ORDERED: LEXISCAN IV ONE ×2 (08:12→08:57)
--- NOTE | 2016-10-18 12:30 | Progress Note ---
Assessment and Plan - Patient Problems (1) COPD exacerbation Current Visit: Yes Status: Acute Plan to address problem: Continue pulmonary management of COPD. (2) Abnormal cardiac enzyme level Current Visit: Yes Status: Acute Plan to address problem: Patient echocardiogram shows a left ventricle ejection fraction 40-45%, but with regional wall motion abnormalities suggesting possible coronary artery disease. Pharmacologic stress test for further assessment. Due to the severity of her COPD, she is not likely a candidate for aggressive and invasive cardiac evaluation and therapies. Subjective Date of service: 10/18/16 Principal diagnosis: COPD exac Interval history: Persantin thallium stress test will be done today for further evaluation of underlying cardiomyopathy with regional wall motion abnormalities suggestive of coronary artery disease. Objective Vital Signs Temp Pulse Pulse Pulse Resp Resp Resp 10/18/16 10:28 79 10/18/16 10:27 80 10/18/16 10:26 82 10/18/16 10:25 82 10/18/16 10:24 86 10/18/16 10:07 72 10/18/16 08:30 75 20 10/18/16 08:20 98.4 F 79 81 20 18 10/18/16 08:00 74 20 10/18/16 07:40 97.8 F 76 18 10/18/16 05:15 98.2 F 77 18 10/18/16 01:20 85 18 10/18/16 01:09 89 18 10/18/16 00:10 97.6 F 88 18 10/17/16 22:43 22 10/17/16 22:00 88 18 10/17/16 21:47 78 10/17/16 20:15 87 18 10/17/16 20:04 10/17/16 20:03 80 18 10/17/16 20:00 98.1 F 78 20 10/17/16 14:03 85 20 10/17/16 13:53 83 20 BP BP Pulse Ox 10/18/16 10:28 142/75 10/18/16 10:27 138/77 10/18/16 10:26 130/75 10/18/16 10:25 143/72 10/18/16 10:24 143/72 10/18/16 10:07 118/67 10/18/16 08:30 10/18/16 08:20 116/52 95 10/18/16 08:00 94 10/18/16 07:40 102/62 100 10/18/16 05:15 128/57 98 10/18/16 01:20 10/18/16 01:09 10/18/16 00:10 110/78 100 10/17/16 22:43 10/17/16 22:00 10/17/16 21:47 121/59 10/17/16 20:15 10/17/16 20:04 80 L 10/17/16 20:03 10/17/16 20:00 121/59 94 10/17/16 14:03 10/17/16 13:53 - Physical Examination General: No Apparent Distress HEENT: Positive: PERRL Neck: Positive: neck supple Cardiac: Positive: Reg Rate and Rhythm Lungs: Positive: Decreased Breath Sounds Neuro: Positive: Grossly Intact Abdomen: Positive: Soft Skin: Positive: Clear Extremities: Absent: edema
[2016-10-18] MEDS: NEURONTIN PO SCH ×3 (12:54→20:20)
[2016-10-18] MEDS: FISH OIL PO SCH (12:54)
[2016-10-18] MEDS: NORVASC PO SCH (12:54)
[2016-10-18] MEDS: COREG PO SCH ×2 (12:55→22:31)
[2016-10-18] MEDS: ZESTRIL PO SCH (12:55)
[2016-10-18] MEDS: PULMICORT 0.5 MG, BROVANA NEBU 15 MCG IH SCH (12:55)
[2016-10-18] MEDS: ASPIRIN PO SCH (12:55)
--- NOTE | 2016-10-18 13:25 | Progress Note ---
Assessment and Plan 1. Acute bronchitis 2. COPD exac. 3. A/C respiratory failure, hypoxia and hypercapnea 4. Anxiety 5. Chest pain/back pain, r/o PE/aortic dissection 6. R/O GERD Rec: 1. Solumedrol -> taper; cont. Levaquin/Duonebs/Pulmicort/Brovana/Singulair 2. IV Ativan/Morphine PRN for anxiety and chest pain, respectively 3. CTA chest: no PE change to PPx Lovenox, done 4. Wean O2 as tolerated; BIPAP prn 5. Try to mobilize/ambulate as much as possible 6. PPI/antacids Subjective Date of service: 10/18/16 Principal diagnosis: COPD exac Interval history: Patient reports breathing is better but still has some cough. C/O heart burn. Just had stress tests not resulted yet Objective Vital Signs - 12hr 10/18/16 10/18/16 10/18/16 05:15 07:40 08:00 Temperature 98.2 F 97.8 F Pulse Rate 74 Pulse Rate [ Anterior Bilateral Throughout] Pulse Rate [ 77 76 Right Dorsalis Pedis] Respiratory 18 18 20 Rate Respiratory Rate [Anterior Bilateral Throughout] Blood Pressure Blood Pressure 128/57 102/62 [Left Radial Artery] O2 Sat by Pulse 98 100 94 Oximetry 10/18/16 10/18/16 10/18/16 08:20 08:30 10:07 Temperature 98.4 F Pulse Rate 72 Pulse Rate [ 79 75 Anterior Bilateral Throughout] Pulse Rate [ 81 Right Dorsalis Pedis] Respiratory 20 Rate Respiratory 18 20 Rate [Anterior Bilateral Throughout] Blood Pressure 118/67 Blood Pressure 116/52 [Left Radial Artery] O2 Sat by Pulse 95 Oximetry 10/18/16 10/18/16 10/18/16 10:24 10:25 10:26 Temperature Pulse Rate 86 82 82 Pulse Rate [ Anterior Bilateral Throughout] Pulse Rate [ Right Dorsalis Pedis] Respiratory Rate Respiratory Rate [Anterior Bilateral Throughout] Blood Pressure 143/72 143/72 130/75 Blood Pressure [Left Radial Artery] O2 Sat by Pulse Oximetry 10/18/16 10/18/16 10/18/16 10:27 10:28 12:00 Temperature 97.5 F L Pulse Rate 80 79 Pulse Rate [ Anterior Bilateral Throughout] Pulse Rate [ 89 Right Dorsalis Pedis] Respiratory 20 Rate Respiratory Rate [Anterior Bilateral Throughout] Blood Pressure 138/77 142/75 Blood Pressure 116/58 [Left Radial Artery] O2 Sat by Pulse 95 Oximetry Constitutional: no acute distress, alert Eyes: non-icteric ENT: oropharynx moist Neck: supple Effort: normal Ascultation: Bilateral: diminished breath sounds, wheezes (better air movement) Cardiovascular: regular rate and rhythm (no mrg) Gastrointestinal: normoactive bowel sounds, soft, non-tender, non-distended Integumentary: normal Extremities: no cyanosis, no edema, pink and warm Neurologic: normal mental status, non-focal exam, pupils equal and round, CN II- XII normal Psychiatric: mood appropriate, affect normal CBC and BMP: 10/15/16 05:22 10/15/16 05:22 ABG, PT/INR, D-dimer: ABG POC ABG pH 7.397 (7.35-7.45) 10/13/16 11:35 POC ABG pCO2 43.0 (35-45) 10/13/16 11:35 POC ABG pO2 78 (80-105) L 10/13/16 11:35 POC ABG HCO3 26.5 10/13/16 11:35 POC ABG Total CO2 28 10/13/16 11:35 POC ABG O2 Sat 95 10/13/16 11:35 PT/INR, D-dimer PT 12.8 Sec. (12.2-14.9) 10/12/16 05:15 INR 0.97 (0.87-1.13) 10/12/16 05:15 D-Dimer 379.00 ng/mlDDU (0-234) H 10/12/16 05:15 Abnormal lab findings: Abnormal Labs 10/12/16 10/12/16 10/12/16 11:19 12:27 15:46 RBC Hgb Hct Lymph # Seg Neutrophils % POC ABG pCO2 POC ABG pO2 Sodium Potassium BUN Glucose POC Glucose 149 H Magnesium Total Creatine Kinase 292 H CK-MB (CK-2) 21.0 H CK-MB (CK-2) Rel Index 7.1 H Troponin T 0.547 H* D 0.488 H* 10/12/16 10/12/16 10/12/16 18:00 18:18 18:38 RBC Hgb Hct Lymph # Seg Neutrophils % POC ABG pCO2 47.4 H POC ABG pO2 68 L Sodium Potassium BUN Glucose POC Glucose 161 H Magnesium Total Creatine Kinase 300 H CK-MB (CK-2) 21.8 H CK-MB (CK-2) Rel Index 7.2 H Troponin T 0.209 H* D 10/13/16 10/13/16 10/13/16 04:00 04:00 11:35 RBC Hgb Hct Lymph # 0.9 L Seg Neutrophils % 77.3 H POC ABG pCO2 POC ABG pO2 78 L Sodium Potassium BUN 25 H Glucose 121 H POC Glucose Magnesium Total Creatine Kinase CK-MB (CK-2) CK-MB (CK-2) Rel Index Troponin T 10/14/16 10/14/16 10/15/16 03:49 03:49 05:22 RBC 5.05 H Hgb 15.3 H 14.5 H Hct 46.9 H 44.4 H Lymph # 1.1 L 0.7 L Seg Neutrophils % 77.3 H 79.0 H POC ABG pCO2 POC ABG pO2 Sodium 146 H Potassium 5.1 H D BUN 39 H Glucose 154 H POC Glucose Magnesium 2.4 H Total Creatine Kinase CK-MB (CK-2) CK-MB (CK-2) Rel Index Troponin T 10/15/16 05:22 RBC Hgb Hct Lymph # Seg Neutrophils % POC ABG pCO2 POC ABG pO2 Sodium Potassium BUN 38 H Glucose 150 H POC Glucose Magnesium Total Creatine Kinase CK-MB (CK-2) CK-MB (CK-2) Rel Index Troponin T
[2016-10-18] MEDS ORDERED: ALUM-MAG HYDROX-SIMETH 200-200-20MG/5ML PO PRN (13:26)
--- NOTE | 2016-10-18 14:34 | Treadmill Report ---
THALLIUM STRESS TEST LEFT VENTRICLE: Left ventricular chamber size is within normal limits. Perfusion study demonstrates homogeneous uptake of the tracer in all segments, no significant defects identified. Gated analysis is not available. CONCLUSION: Normal myocardial perfusion study. [facility]# [id number] [place]/NTS
--- NOTE | 2016-10-18 15:30 | Progress Note ---
Assessment and Plan Assessment and plan: --Acute on chronic hypoxic hypercapnic respiratory failure Patient is saturating well on 3 L of nasal cannula oxygen, BiPAP as needed,Nebulizers, taper IV steroids --elevated d-dimer's ,CT angiogram negative for PE, --Acute exacerbation of COPD with acute bronchitis Oxygen, nebulizers IV steroids, IV antibiotics, inhalation steroids --Positive troponins/rule out non-ST elevation [place] Stress test is negative for reversible ischemia --Malignant hypertension Well-controlled continue antihypertensives, when necessary hydralazine --Generalized anxiety Low-dose of Xanax as needed --DVT prophylaxis patient is already on Lovenox Increase ambulation as tolerated, physical therapy Possible home tomorrow with home health and home PT Plan of care discussed with the patient as well as the nurse History Interval history: Patient seen and evaluated medical records reviewed No new events reported by the nursing staff Patient underwent stress test which is negative for reversible ischemia However, patient reports that she continues to have shortness of breath Unable to ambulate properly, physical therapy is spending Hospitalist Physical - Constitutional Vitals: Temp Pulse Resp BP Pulse Ox 97.5 F L 89 20 116/58 95 10/18/16 12:00 10/18/16 12:00 10/18/16 12:00 10/18/16 12:00 10/18/16 12:00 General appearance: Present: no acute distress, well-nourished - EENT Eyes: Present: PERRL, EOM intact - Neck Neck: Present: supple, normal ROM - Respiratory Respiratory effort: normal Respiratory: bilateral: diminished, wheezing, negative: rales, rhonchi - Cardiovascular Rhythm: regular Heart Sounds: Present: S1 & S2 - Extremities Extremities: no ischemia, pulses intact, pulses symmetrical Peripheral Pulses: within normal limits - Abdominal General gastrointestinal: soft, non-tender, non-distended, normal bowel sounds - Integumentary Integumentary: Present: clear, warm - Psychiatric Psychiatric: appropriate mood/affect, cooperative - Neurologic Neurologic: CNII-XII intact, moves all extremities Results - Labs CBC & Chem 7: 10/15/16 05:22 10/15/16 05:22 Labs: Laboratory Last Values WBC 5.3 K/mm3 (4.5-11.0) 10/15/16 05:22 RBC 4.75 M/mm3 (3.65-5.03) 10/15/16 05:22 Hgb 14.5 gm/dl (10.1-14.3) H 10/15/16 05:22 Hct 44.4 % (30.3-42.9) H 10/15/16 05:22 MCV 94 fl (79-97) 10/15/16 05:22 MCH 31 pg (28-32) 10/15/16 05:22 MCHC 33 % (30-34) 10/15/16 05:22 RDW 13.9 % (13.2-15.2) 10/15/16 05:22 Plt Count 176 K/mm3 (140-440) 10/15/16 05:22 Lymph % (Auto) 14.0 % (13.4-35.0) 10/15/16 05:22 [place] % (Auto) 6.5 % (0.0-7.3) 10/15/16 05:22 Eos % (Auto) 0.0 % (0.0-4.3) 10/15/16 05:22 Baso % (Auto) 0.5 % (0.0-1.8) 10/15/16 05:22 Lymph # 0.7 K/mm3 (1.2-5.4) L 10/15/16 05:22 [place] # 0.3 K/mm3 (0.0-0.8) 10/15/16 05:22 Eos # 0.0 K/mm3 (0.0-0.4) 10/15/16 05:22 Baso # 0.0 K/mm3 (0.0-0.1) 10/15/16 05:22 Seg Neutrophils % 79.0 % (40.0-70.0) H 10/15/16 05:22 Seg Neutrophils # 4.2 K/mm3 (1.8-7.7) 10/15/16 05:22 PT 12.8 Sec. (12.2-14.9) 10/12/16 05:15 INR 0.97 (0.87-1.13) 10/12/16 05:15 APTT 23.7 Sec. (24.2-36.6) L 10/12/16 05:15 D-Dimer 379.00 ng/mlDDU (0-234) H 10/12/16 05:15 POC ABG pH 7.397 (7.35-7.45) 10/13/16 11:35 POC ABG pCO2 43.0 (35-45) 10/13/16 11:35 POC ABG pO2 78 (80-105) L 10/13/16 11:35 POC ABG HCO3 26.5 10/13/16 11:35 POC ABG Total CO2 28 10/13/16 11:35 POC ABG O2 Sat 95 10/13/16 11:35 POC ABG Base Excess 2 10/13/16 11:35 FiO2 35 % 10/13/16 11:35 Sodium 144 mmol/L (137-145) 10/15/16 05:22 Potassium 4.1 mmol/L (3.6-5.0) 10/15/16 05:22 Chloride 103.9 mmol/L (98-107) 10/15/16 05:22 Carbon Dioxide 27 mmol/L (22-30) 10/15/16 05:22 Anion Gap 17 mmol/L 10/15/16 05:22 BUN 38 mg/dL (7-17) H 10/15/16 05:22 Creatinine 0.7 mg/dL (0.7-1.2) 10/15/16 05:22 Estimated GFR > 60 ml/min 10/15/16 05:22 BUN/Creatinine Ratio 54.28 % 10/15/16 05:22 Glucose 150 mg/dL (65-100) H 10/15/16 05:22 POC Glucose 161 (70-105) H 10/12/16 18:18 Lactic Acid 2.2 mmol/L (0.7-2.0) H* 10/12/16 06:02 Calcium 8.7 mg/dL (8.4-10.2) 10/15/16 05:22 Phosphorus 3.9 mg/dL (2.5-4.5) 10/13/16 04:00 Magnesium 2.3 mg/dL (1.7-2.3) 10/15/16 05:22 Total Bilirubin 0.3 mg/dL (0.1-1.2) 10/12/16 05:15 AST 99 units/L (5-40) H 10/12/16 05:15 ALT 98 units/L (7-56) H 10/12/16 05:15 Alkaline Phosphatase 106 units/L (35-129) 10/12/16 05:15 Total Creatine Kinase 300 units/L (30-135) H 10/12/16 18:00 CK-MB (CK-2) 21.8 ng/mL (0.0-4.0) H 10/12/16 18:00 CK-MB (CK-2) Rel Index 7.2 (0-4) H 10/12/16 18:00 Troponin T 0.209 ng/mL (0.00-0.029) H* D 10/12/16 18:00 Total Protein 7.7 g/dL (6.3-8.2) 10/12/16 05:15 Albumin 4.2 g/dL (3.9-5) 10/12/16 05:15 Albumin/Globulin Ratio 1.2 % 10/12/16 05:15 Triglycerides 63 mg/dL (2-149) 10/12/16 05:15 Cholesterol 231 mg/dL (50-199) H 10/12/16 05:15 LDL Cholesterol Direct 126 mg/dL (50-130) 10/12/16 05:15 HDL Cholesterol 93 mg/dL (40-59) H 10/12/16 05:15 Cholesterol/HDL Ratio 2.48 % 10/12/16 05:15 Urine Color Yellow (Yellow) 10/12/16 08:27 Urine Turbidity Clear (Clear) 10/12/16 08:27 Urine pH 5.0 (5.0-7.0) 10/12/16 08:27 Ur Specific [place] 1.020 (1.003-1.030) 10/12/16 08:27 Urine Protein 100 mg/dl mg/dL (Negative) 10/12/16 08:27 Urine Glucose (UA) Neg mg/dL (Negative) 10/12/16 08:27 Urine Ketones Neg mg/dL (Negative) 10/12/16 08:27 Urine Blood Neg (Negative) 10/12/16 08:27 Urine Nitrite Pos (Negative) 10/12/16 08:27 Urine Bilirubin Neg (Negative) 10/12/16 08:27 Urine Urobilinogen < 2.0 mg/dL (<2.0) 10/12/16 08:27 Ur Leukocyte Esterase Neg (Negative) 10/12/16 08:27 Urine WBC (Auto) 4.0 /HPF (0.0-6.0) 10/12/16 08:27 Urine RBC (Auto) 3.0 /HPF (0.0-6.0) 10/12/16 08:27 Hyaline Casts 1 /LPF 10/12/16 08:27 Urine Yeast (Budding) 1+ /HPF 10/12/16 08:27
[2016-10-18] MEDS: MORPHINE IV PRN (20:19)
[2016-10-18] MEDS: SINGULAIR PO SCH (22:31)
[2016-10-18] MEDS: LOVENOX SUB-Q SCH (22:34)
[2016-10-18] MEDS: XANAX PO PRN (22:38)
[2016-10-19] MEDS: DUONEB 0.5 MG-3 MG/3 ML SOLN IH SCH ×4 (01:02→20:47)
[2016-10-19] MEDS: AMBIEN PO PRN ×2 (02:00→22:19)
[2016-10-19] MEDS: NEURONTIN PO SCH ×3 (08:50→20:20)
[2016-10-19] MEDS ORDERED: DELTASONE PO SCH (10:00)
--- NOTE | 2016-10-19 10:57 | Progress Note ---
Assessment and Plan Acute respiratory failure COPD exacerbation Abnormal cardiac enzymes normal myocardial perfusion thallium stress test this admission. Hypertension EF 40-45% on echocardiogram. Conservative cardiac management. Subjective Date of service: 10/19/16 Principal diagnosis: COPD exac Interval history: Patient denies chest pain. No distress noted. Objective Vital Signs Temp Pulse Pulse Pulse Pulse Resp Resp 10/19/16 10:39 98.2 F 76 20 10/19/16 08:32 10/19/16 08:31 77 18 10/19/16 08:00 76 18 10/19/16 04:35 97.6 F 77 20 10/19/16 04:00 90 10/19/16 01:12 76 20 10/19/16 01:02 97.9 F 86 22 10/19/16 01:01 77 18 10/18/16 21:08 88 18 10/18/16 21:07 10/18/16 20:58 85 22 10/18/16 20:21 98.8 F 82 22 10/18/16 16:00 98.5 F 87 20 10/18/16 14:35 91 H 20 10/18/16 14:25 85 20 10/18/16 12:00 97.5 F L 89 20 BP Pulse Ox 10/19/16 10:39 129/74 10/19/16 08:32 99 10/19/16 08:31 10/19/16 08:00 10/19/16 04:35 146/65 97 10/19/16 04:00 10/19/16 01:12 10/19/16 01:02 106/52 100 10/19/16 01:01 10/18/16 21:08 10/18/16 21:07 97 10/18/16 20:58 10/18/16 20:21 92/57 96 10/18/16 16:00 115/58 96 10/18/16 14:35 10/18/16 14:25 10/18/16 12:00 116/58 95 - Physical Examination General: No Apparent Distress HEENT: Positive: PERRL Neck: Positive: neck supple Cardiac: Positive: Reg Rate and Rhythm Neuro: Positive: Grossly Intact Extremities: Absent: edema
[2016-10-19] MEDS: FISH OIL PO SCH (11:16)
[2016-10-19] MEDS: ASPIRIN PO SCH (11:16)
[2016-10-19] MEDS: ZESTRIL PO SCH (11:17)
[2016-10-19] MEDS: PROTONIX PO SCH (11:17)
[2016-10-19] MEDS: MORPHINE IV PRN ×2 (11:34→22:21)
[2016-10-19] MEDS ORDERED: CEPACOL X STRENGTH MM PRN (11:46)
--- NOTE | 2016-10-19 11:46 | Progress Note ---
Assessment and Plan Assessment and plan: --Acute on chronic hypoxic respiratory failure Patient was on continuous BiPAP for 48 hours in ICU Now saturating well on 2 L of nasal cannula oxygen BiPAP as needed,Nebulizers, taper steroids --Acute exacerbation of COPD with acute bronchitis Oxygen, nebulizers IV steroids, IV antibiotics, inhalation steroids --elevated d-dimer's ,CT angiogram negative for PE, --Positive troponins/rule out non-ST elevation [place] Stress test is negative for reversible ischemia --Malignant hypertension Continue current antihypertensives and when necessary medications --Generalized anxiety Low-dose of Xanax as needed --DVT prophylaxis patient is already on Lovenox Increase ambulation as tolerated, physical therapy Possible home tomorrow with home health and home PT is stable Plan of care discussed with the patient as well as the nurse History Interval history: Patient seen and evaluated medical records reviewed no new events reported by the nursing staff Patient sometimes feels anxious and short of breath, already has home oxygen Also complaints of some sore throat, alert awake oriented 3 not in acute distress Vital signs reviewed stable Hospitalist Physical - Constitutional Vitals: Temp Pulse Resp BP Pulse Ox 98.2 F 86 20 108/55 99 10/19/16 10:39 10/19/16 11:14 10/19/16 10:39 10/19/16 11:14 10/19/16 08:32 General appearance: Present: no acute distress, well-nourished - EENT Eyes: Present: PERRL, EOM intact - Neck Neck: Present: supple, normal ROM - Respiratory Respiratory effort: normal Respiratory: bilateral: diminished, wheezing, negative: rhonchi - Cardiovascular Rhythm: regular Heart Sounds: Present: S1 & S2 - Extremities Extremities: no ischemia, pulses intact, pulses symmetrical Peripheral Pulses: within normal limits - Abdominal General gastrointestinal: soft, non-tender, non-distended, normal bowel sounds - Integumentary Integumentary: Present: clear, warm - Psychiatric Psychiatric: appropriate mood/affect, cooperative - Neurologic Neurologic: CNII-XII intact, moves all extremities Results - Labs CBC & Chem 7: 10/15/16 05:22 10/15/16 05:22 Labs: Laboratory Last Values WBC 5.3 K/mm3 (4.5-11.0) 10/15/16 05:22 RBC 4.75 M/mm3 (3.65-5.03) 10/15/16 05:22 Hgb 14.5 gm/dl (10.1-14.3) H 10/15/16 05:22 Hct 44.4 % (30.3-42.9) H 10/15/16 05:22 MCV 94 fl (79-97) 10/15/16 05:22 MCH 31 pg (28-32) 10/15/16 05:22 MCHC 33 % (30-34) 10/15/16 05:22 RDW 13.9 % (13.2-15.2) 10/15/16 05:22 Plt Count 176 K/mm3 (140-440) 10/15/16 05:22 Lymph % (Auto) 14.0 % (13.4-35.0) 10/15/16 05:22 [place] % (Auto) 6.5 % (0.0-7.3) 10/15/16 05:22 Eos % (Auto) 0.0 % (0.0-4.3) 10/15/16 05:22 Baso % (Auto) 0.5 % (0.0-1.8) 10/15/16 05:22 Lymph # 0.7 K/mm3 (1.2-5.4) L 10/15/16 05:22 [place] # 0.3 K/mm3 (0.0-0.8) 10/15/16 05:22 Eos # 0.0 K/mm3 (0.0-0.4) 10/15/16 05:22 Baso # 0.0 K/mm3 (0.0-0.1) 10/15/16 05:22 Seg Neutrophils % 79.0 % (40.0-70.0) H 10/15/16 05:22 Seg Neutrophils # 4.2 K/mm3 (1.8-7.7) 10/15/16 05:22 PT 12.8 Sec. (12.2-14.9) 10/12/16 05:15 INR 0.97 (0.87-1.13) 10/12/16 05:15 APTT 23.7 Sec. (24.2-36.6) L 10/12/16 05:15 D-Dimer 379.00 ng/mlDDU (0-234) H 10/12/16 05:15 POC ABG pH 7.397 (7.35-7.45) 10/13/16 11:35 POC ABG pCO2 43.0 (35-45) 10/13/16 11:35 POC ABG pO2 78 (80-105) L 10/13/16 11:35 POC ABG HCO3 26.5 10/13/16 11:35 POC ABG Total CO2 28 10/13/16 11:35 POC ABG O2 Sat 95 10/13/16 11:35 POC ABG Base Excess 2 10/13/16 11:35 FiO2 35 % 10/13/16 11:35 Sodium 144 mmol/L (137-145) 10/15/16 05:22 Potassium 4.1 mmol/L (3.6-5.0) 10/15/16 05:22 Chloride 103.9 mmol/L (98-107) 10/15/16 05:22 Carbon Dioxide 27 mmol/L (22-30) 10/15/16 05:22 Anion Gap 17 mmol/L 10/15/16 05:22 BUN 38 mg/dL (7-17) H 10/15/16 05:22 Creatinine 0.7 mg/dL (0.7-1.2) 10/15/16 05:22 Estimated GFR > 60 ml/min 10/15/16 05:22 BUN/Creatinine Ratio 54.28 % 10/15/16 05:22 Glucose 150 mg/dL (65-100) H 10/15/16 05:22 POC Glucose 197 (70-105) H 10/18/16 21:25 Lactic Acid 2.2 mmol/L (0.7-2.0) H* 10/12/16 06:02 Calcium 8.7 mg/dL (8.4-10.2) 10/15/16 05:22 Phosphorus 3.9 mg/dL (2.5-4.5) 10/13/16 04:00 Magnesium 2.3 mg/dL (1.7-2.3) 10/15/16 05:22 Total Bilirubin 0.3 mg/dL (0.1-1.2) 10/12/16 05:15 AST 99 units/L (5-40) H 10/12/16 05:15 ALT 98 units/L (7-56) H 10/12/16 05:15 Alkaline Phosphatase 106 units/L (35-129) 10/12/16 05:15 Total Creatine Kinase 300 units/L (30-135) H 10/12/16 18:00 CK-MB (CK-2) 21.8 ng/mL (0.0-4.0) H 10/12/16 18:00 CK-MB (CK-2) Rel Index 7.2 (0-4) H 10/12/16 18:00 Troponin T 0.209 ng/mL (0.00-0.029) H* D 10/12/16 18:00 Total Protein 7.7 g/dL (6.3-8.2) 10/12/16 05:15 Albumin 4.2 g/dL (3.9-5) 10/12/16 05:15 Albumin/Globulin Ratio 1.2 % 10/12/16 05:15 Triglycerides 63 mg/dL (2-149) 10/12/16 05:15 Cholesterol 231 mg/dL (50-199) H 10/12/16 05:15 LDL Cholesterol Direct 126 mg/dL (50-130) 10/12/16 05:15 HDL Cholesterol 93 mg/dL (40-59) H 10/12/16 05:15 Cholesterol/HDL Ratio 2.48 % 10/12/16 05:15 Urine Color Yellow (Yellow) 10/12/16 08:27 Urine Turbidity Clear (Clear) 10/12/16 08:27 Urine pH 5.0 (5.0-7.0) 10/12/16 08:27 Ur Specific [place] 1.020 (1.003-1.030) 10/12/16 08:27 Urine Protein 100 mg/dl mg/dL (Negative) 10/12/16 08:27 Urine Glucose (UA) Neg mg/dL (Negative) 10/12/16 08:27 Urine Ketones Neg mg/dL (Negative) 10/12/16 08:27 Urine Blood Neg (Negative) 10/12/16 08:27 Urine Nitrite Pos (Negative) 10/12/16 08:27 Urine Bilirubin Neg (Negative) 10/12/16 08:27 Urine Urobilinogen < 2.0 mg/dL (<2.0) 10/12/16 08:27 Ur Leukocyte Esterase Neg (Negative) 10/12/16 08:27 Urine WBC (Auto) 4.0 /HPF (0.0-6.0) 10/12/16 08:27 Urine RBC (Auto) 3.0 /HPF (0.0-6.0) 10/12/16 08:27 Hyaline Casts 1 /LPF 10/12/16 08:27 Urine Yeast (Budding) 1+ /HPF 10/12/16 08:27
--- NOTE | 2016-10-19 12:52 | Progress Note ---
Assessment and Plan 70 y/o female with COPD and chronic respiratory failure admitted with COPD exacerbation. 1. Would consider increasing prednisone to 60 daily and tapering from there 2. Continue BID pulmicort and brovana 3. Has oxygen already established at home 4. Anxiety and pain control Subjective Date of service: 10/19/16 Principal diagnosis: COPD exac Interval history: No acute events. Per patient, feels better today compared to yesterday. No family at bedside. No wheezing but no moving a whole lot of air. In no distress. Objective Vital Signs - 12hr 10/19/16 10/19/16 10/19/16 01:01 01:02 01:12 Temperature 97.9 F Pulse Rate Pulse Rate [ 77 76 Anterior Bilateral Throughout] Pulse Rate [ From Monitor] Pulse Rate [ 86 Right Dorsalis Pedis] Respiratory 22 Rate Respiratory 18 20 Rate [Anterior Bilateral Throughout] Blood Pressure 106/52 [Left Radial Artery] O2 Sat by Pulse 100 Oximetry 10/19/16 10/19/16 10/19/16 04:00 04:35 08:00 Temperature 97.6 F Pulse Rate 90 Pulse Rate [ 76 Anterior Bilateral Throughout] Pulse Rate [ From Monitor] Pulse Rate [ 77 Right Dorsalis Pedis] Respiratory 20 Rate Respiratory 18 Rate [Anterior Bilateral Throughout] Blood Pressure 146/65 [Left Radial Artery] O2 Sat by Pulse 97 Oximetry 10/19/16 10/19/16 10/19/16 08:31 08:32 10:39 Temperature 98.2 F Pulse Rate Pulse Rate [ 77 Anterior Bilateral Throughout] Pulse Rate [ 76 From Monitor] Pulse Rate [ Right Dorsalis Pedis] Respiratory 20 Rate Respiratory 18 Rate [Anterior Bilateral Throughout] Blood Pressure 129/74 [Left Radial Artery] O2 Sat by Pulse 99 Oximetry 10/19/16 11:14 Temperature Pulse Rate Pulse Rate [ Anterior Bilateral Throughout] Pulse Rate [ 86 From Monitor] Pulse Rate [ Right Dorsalis Pedis] Respiratory Rate Respiratory Rate [Anterior Bilateral Throughout] Blood Pressure 108/55 [Left Radial Artery] O2 Sat by Pulse Oximetry Constitutional: no acute distress, alert Eyes: non-icteric ENT: oropharynx moist Neck: supple Effort: normal Ascultation: Bilateral: diminished breath sounds (minimal air movement) Cardiovascular: regular rate and rhythm (no mrg) Gastrointestinal: normoactive bowel sounds, soft, non-tender, non-distended Integumentary: normal Extremities: no cyanosis, no edema, pink and warm Neurologic: normal mental status, non-focal exam, pupils equal and round, CN II- XII normal Psychiatric: mood appropriate, affect normal CBC and BMP: 10/15/16 05:22 10/15/16 05:22 ABG, PT/INR, D-dimer: ABG POC ABG pH 7.397 (7.35-7.45) 10/13/16 11:35 POC ABG pCO2 43.0 (35-45) 10/13/16 11:35 POC ABG pO2 78 (80-105) L 10/13/16 11:35 POC ABG HCO3 26.5 10/13/16 11:35 POC ABG Total CO2 28 10/13/16 11:35 POC ABG O2 Sat 95 10/13/16 11:35 PT/INR, D-dimer PT 12.8 Sec. (12.2-14.9) 10/12/16 05:15 INR 0.97 (0.87-1.13) 10/12/16 05:15 D-Dimer 379.00 ng/mlDDU (0-234) H 10/12/16 05:15 Abnormal lab findings: Abnormal Labs 10/12/16 10/12/16 10/12/16 11:19 12:27 15:46 RBC Hgb Hct Lymph # Seg Neutrophils % POC ABG pCO2 POC ABG pO2 Sodium Potassium BUN Glucose POC Glucose 149 H Magnesium Total Creatine Kinase 292 H CK-MB (CK-2) 21.0 H CK-MB (CK-2) Rel Index 7.1 H Troponin T 0.547 H* D 0.488 H* 10/12/16 10/12/16 10/12/16 18:00 18:18 18:38 RBC Hgb Hct Lymph # Seg Neutrophils % POC ABG pCO2 47.4 H POC ABG pO2 68 L Sodium Potassium BUN Glucose POC Glucose 161 H Magnesium Total Creatine Kinase 300 H CK-MB (CK-2) 21.8 H CK-MB (CK-2) Rel Index 7.2 H Troponin T 0.209 H* D 10/13/16 10/13/16 10/13/16 04:00 04:00 11:35 RBC Hgb Hct Lymph # 0.9 L Seg Neutrophils % 77.3 H POC ABG pCO2 POC ABG pO2 78 L Sodium Potassium BUN 25 H Glucose 121 H POC Glucose Magnesium Total Creatine Kinase CK-MB (CK-2) CK-MB (CK-2) Rel Index Troponin T 10/14/16 10/14/16 10/15/16 03:49 03:49 05:22 RBC 5.05 H Hgb 15.3 H 14.5 H Hct 46.9 H 44.4 H Lymph # 1.1 L 0.7 L Seg Neutrophils % 77.3 H 79.0 H POC ABG pCO2 POC ABG pO2 Sodium 146 H Potassium 5.1 H D BUN 39 H Glucose 154 H POC Glucose Magnesium 2.4 H Total Creatine Kinase CK-MB (CK-2) CK-MB (CK-2) Rel Index Troponin T 10/15/16 10/18/16 05:22 21:25 RBC Hgb Hct Lymph # Seg Neutrophils % POC ABG pCO2 POC ABG pO2 Sodium Potassium BUN 38 H Glucose 150 H POC Glucose 197 H Magnesium Total Creatine Kinase CK-MB (CK-2) CK-MB (CK-2) Rel Index Troponin T
[2016-10-19] MEDS: NORVASC PO SCH (14:19)
[2016-10-19] MEDS: COREG PO SCH ×2 (14:21→22:29)
[2016-10-19] MEDS: DELTASONE PO SCH (17:21)
[2016-10-19] MEDS: XANAX PO PRN (18:46)
[2016-10-19] MEDS: ROBITUSSIN DM PO PRN (22:19)
[2016-10-19] MEDS: LOVENOX SUB-Q SCH (22:21)
[2016-10-19] MEDS: SINGULAIR PO SCH (22:21)
[2016-10-20] MEDS: DUONEB 0.5 MG-3 MG/3 ML SOLN IH SCH ×3 (02:01→14:01)
[2016-10-20] MEDS: XANAX PO PRN (03:10)
[2016-10-20] MEDS: NORVASC PO SCH (09:31)
[2016-10-20] MEDS: NEURONTIN PO SCH (09:31)
[2016-10-20] MEDS: PROTONIX PO SCH (09:31)
[2016-10-20] MEDS: DELTASONE PO SCH (09:31)
[2016-10-20] MEDS: ZESTRIL PO SCH (09:32)
[2016-10-20] MEDS: FISH OIL PO SCH (09:33)
[2016-10-20] MEDS: COREG PO SCH (09:34)
[2016-10-20] MEDS: ASPIRIN PO SCH (09:37)
[2016-10-20] MEDS: MORPHINE IV PRN (09:41)
--- NOTE | 2016-10-20 09:58 | Progress Note ---
Assessment and Plan Acute respiratory failure COPD exacerbation Abnormal cardiac enzymes normal myocardial perfusion thallium stress test this admission. Hypertension EF 40-45% on echocardiogram. Plan: Conservative cardiac management. Stable cardiac parker for discharge home. Subjective Date of service: 10/20/16 Principal diagnosis: COPD exac Interval history: Patient appears comfortable. She has no complaints. Objective Vital Signs Temp Pulse Pulse Pulse Pulse Resp Resp 10/20/16 09:41 20 10/20/16 04:00 98.1 F 80 18 10/20/16 02:15 84 16 10/20/16 02:00 82 16 10/20/16 01:04 98.1 F 83 18 10/19/16 22:29 82 10/19/16 22:00 92 H 10/19/16 21:04 83 12 10/19/16 20:51 10/19/16 20:48 87 15 10/19/16 20:00 97.7 F 80 18 10/19/16 14:17 86 10/19/16 13:42 79 16 10/19/16 13:14 97.7 F 20 10/19/16 11:14 86 10/19/16 10:39 98.2 F 76 20 10/19/16 10:00 81 BP BP Pulse Ox 10/20/16 09:41 10/20/16 04:00 140/70 97 10/20/16 02:15 10/20/16 02:00 10/20/16 01:04 122/55 97 10/19/16 22:29 114/57 10/19/16 22:00 10/19/16 21:04 10/19/16 20:51 98 10/19/16 20:48 10/19/16 20:00 114/57 98 10/19/16 14:17 137/63 10/19/16 13:42 10/19/16 13:14 10/19/16 11:14 108/55 10/19/16 10:39 129/74 10/19/16 10:00 - Physical Examination General: No Apparent Distress HEENT: Positive: PERRL Neck: Positive: neck supple Cardiac: Positive: Reg Rate and Rhythm Extremities: Absent: edema
[2016-10-20 10:13] VITALS: BP 143/76
--- NOTE | 2016-10-20 10:30 | Discharge Summary ---
Providers - Providers Date of Admission: 10/12/16 08:12 Date of discharge: 10/20/16 Attending physician: GUERDA PENA 10/12/16 08:19 Consult to Physician [CONS] Routine Consulting Provider: KATIUSKA ALCALA Reason For Exam: respiratory failure/cr care consult Place consult to:: dr black Notified:: y Phone number called:: [phone] Was contact made?: Yes If yes, spoke with:: dr arthur cardenas 10/12/16 08:22 Consult to Physician [CONS] Routine Consulting Provider: SONI MOTA Reason For Exam: NSTEMI/resp failure Place consult to:: [facility] Notified:: DR BARRIOS Phone number called:: [phone] Was contact made?: Yes If yes, spoke with:: DR BARRIOS Time called:: 12:00 10/17/16 09:05 Physical Therapy Evaluation and Treat [CONS] Routine Comment: Reason For Exam: gen weakness/unsteady gait Primary care physician: PATIENT SERVICE REP Hospitalization Condition: Good Disposition: DC/TX HOME UNDER HOME HEALTH - Discharge Diagnoses (1) COPD exacerbation Status: Acute Exam - Constitutional Vitals: Temp Pulse Resp BP Pulse Ox 99.3 F 85 20 143/76 99 10/20/16 08:30 10/20/16 08:30 10/20/16 09:41 10/20/16 08:30 10/20/16 08:30 Plan Activity: advance as tolerated Diet: low fat, low cholesterol, low salt Additional Instructions: 1.Follow up with PCP in 1 week. 2.Folllow up with Dr. Alcala in 1 week. 3.Follow up with Cardiology in 1 week. 4.Continue home Oxygen at 2 l/min continuous. Follow up with: PRIMARY CARE,MD [Primary Care Provider] - 3-5 Days Prescriptions: AtorvaSTATin [Lipitor] 40 mg PO QHS #30 tablet Carvedilol [Coreg] 3.125 mg PO BID #60 tablet guaiFENesin DM [Robitussin Dm] 10 ml PO TID PRN #1 bottle PRN Reason: cough Prednisone [predniSONE 10 mg (6-Day Pack, 21 Tabs)] 10 mg PO .TAPER #1 tab.ds.pk
--- NOTE | 2016-10-20 13:15 | Progress Note ---
Assessment and Plan 70 y/o female with COPD and chronic respiratory failure admitted with COPD exacerbation. 1. Taper from Prednisone 60 as an outpatient 2. Continue BID pulmicort and brovana 3. Has oxygen already established at home 4. Anxiety and pain control 5. No objection to discharge can follow up in 10-14 days. Subjective Date of service: 10/20/16 Principal diagnosis: COPD exac Interval history: No acute events. sitting up in chair talking on cellphone. Objective Vital Signs - 12hr 10/20/16 10/20/16 10/20/16 02:00 02:15 04:00 Temperature 98.1 F Pulse Rate [ 82 84 Anterior Bilateral Throughout] Pulse Rate [ 80 Right Radial] Respiratory 18 Rate Respiratory 16 16 Rate [Anterior Bilateral Throughout] Blood Pressure 140/70 [Left Radial Artery] Blood Pressure [Right Arm] O2 Sat by Pulse 97 Oximetry 10/20/16 10/20/16 10/20/16 08:30 08:40 09:41 Temperature 99.3 F Pulse Rate [ 84 92 H Anterior Bilateral Throughout] Pulse Rate [ 85 Right Radial] Respiratory 12 20 Rate Respiratory 16 17 Rate [Anterior Bilateral Throughout] Blood Pressure [Left Radial Artery] Blood Pressure 143/76 [Right Arm] O2 Sat by Pulse 99 Oximetry 10/20/16 10:00 Temperature Pulse Rate [ Anterior Bilateral Throughout] Pulse Rate [ Right Radial] Respiratory Rate Respiratory Rate [Anterior Bilateral Throughout] Blood Pressure [Left Radial Artery] Blood Pressure [Right Arm] O2 Sat by Pulse 98 Oximetry Constitutional: no acute distress, alert Eyes: non-icteric ENT: oropharynx moist Neck: supple Effort: normal Ascultation: Bilateral: diminished breath sounds (minimal air movement), wheezes (better air movement) Cardiovascular: regular rate and rhythm (no mrg) Gastrointestinal: normoactive bowel sounds, soft, non-tender, non-distended Integumentary: normal Extremities: no cyanosis, no edema, pink and warm Neurologic: normal mental status, non-focal exam, pupils equal and round, CN II- XII normal Psychiatric: mood appropriate, affect normal CBC and BMP: 10/15/16 05:22 10/15/16 05:22 ABG, PT/INR, D-dimer: ABG POC ABG pH 7.397 (7.35-7.45) 10/13/16 11:35 POC ABG pCO2 43.0 (35-45) 10/13/16 11:35 POC ABG pO2 78 (80-105) L 10/13/16 11:35 POC ABG HCO3 26.5 10/13/16 11:35 POC ABG Total CO2 28 10/13/16 11:35 POC ABG O2 Sat 95 10/13/16 11:35 PT/INR, D-dimer PT 12.8 Sec. (12.2-14.9) 10/12/16 05:15 INR 0.97 (0.87-1.13) 10/12/16 05:15 D-Dimer 379.00 ng/mlDDU (0-234) H 10/12/16 05:15 Abnormal lab findings: Abnormal Labs 10/12/16 10/12/16 10/12/16 11:19 12:27 15:46 RBC Hgb Hct Lymph # Seg Neutrophils % POC ABG pCO2 POC ABG pO2 Sodium Potassium BUN Glucose POC Glucose 149 H Magnesium Total Creatine Kinase 292 H CK-MB (CK-2) 21.0 H CK-MB (CK-2) Rel Index 7.1 H Troponin T 0.547 H* D 0.488 H* 10/12/16 10/12/16 10/12/16 18:00 18:18 18:38 RBC Hgb Hct Lymph # Seg Neutrophils % POC ABG pCO2 47.4 H POC ABG pO2 68 L Sodium Potassium BUN Glucose POC Glucose 161 H Magnesium Total Creatine Kinase 300 H CK-MB (CK-2) 21.8 H CK-MB (CK-2) Rel Index 7.2 H Troponin T 0.209 H* D 10/13/16 10/13/16 10/13/16 04:00 04:00 11:35 RBC Hgb Hct Lymph # 0.9 L Seg Neutrophils % 77.3 H POC ABG pCO2 POC ABG pO2 78 L Sodium Potassium BUN 25 H Glucose 121 H POC Glucose Magnesium Total Creatine Kinase CK-MB (CK-2) CK-MB (CK-2) Rel Index Troponin T 10/14/16 10/14/16 10/15/16 03:49 03:49 05:22 RBC 5.05 H Hgb 15.3 H 14.5 H Hct 46.9 H 44.4 H Lymph # 1.1 L 0.7 L Seg Neutrophils % 77.3 H 79.0 H POC ABG pCO2 POC ABG pO2 Sodium 146 H Potassium 5.1 H D BUN 39 H Glucose 154 H POC Glucose Magnesium 2.4 H Total Creatine Kinase CK-MB (CK-2) CK-MB (CK-2) Rel Index Troponin T 10/15/16 10/18/16 10/19/16 05:22 21:25 11:10 RBC Hgb Hct Lymph # Seg Neutrophils % POC ABG pCO2 POC ABG pO2 Sodium Potassium BUN 38 H Glucose 150 H POC Glucose 197 H 118 H Magnesium Total Creatine Kinase CK-MB (CK-2) CK-MB (CK-2) Rel Index Troponin T 10/19/16 17:09 RBC Hgb Hct Lymph # Seg Neutrophils % POC ABG pCO2 POC ABG pO2 Sodium Potassium BUN Glucose POC Glucose 135 H Magnesium Total Creatine Kinase CK-MB (CK-2) CK-MB (CK-2) Rel Index Troponin T
== END 2016-10-20 16:03 | disposition home health service (06) | DRG 280 ==
LOC: ED 05:10 → CC1 08:12 → 4A 10-15 19:19
PROVIDERS: ADMIT Internal Medicine; ATTEND Internal Medicine
PROC: 4A033R1 Measurement of Arterial Saturation, Peripheral, Percutaneous Approach (ICD-10-PCS; 2016-10-12)
PROC: 5A09457 Assistance with Respiratory Ventilation, 24-96 Consecutive Hours, Continuous Positive Airway Pressure (ICD-10-PCS; principal; 2016-10-13)
DX: I21.4 Non-ST elevation (NSTEMI) myocardial infarction (principal); J96.21 Acute and chronic respiratory failure with hypoxia; J96.22 Acute and chronic respiratory failure with hypercapnia; J44.0 Chronic obstructive pulmonary disease with (acute) lower respiratory infection; J44.1 Chronic obstructive pulmonary disease with (acute) exacerbation; J20.9 Acute bronchitis, unspecified; I10 Essential (primary) hypertension; K21.9 Gastro-esophageal reflux disease without esophagitis; E78.5 Hyperlipidemia, unspecified; I73.9 Peripheral vascular disease, unspecified; F41.1 Generalized anxiety disorder; Z88.2 Allergy status to sulfonamides; Z88.8 Allergy status to other drugs, medicaments and biological substances; Z86.73 Personal history of transient ischemic attack (TIA), and cerebral infarction without residual deficits; Z87.442 Personal history of urinary calculi; Z90.49 Acquired absence of other specified parts of digestive tract; Z90.710 Acquired absence of both cervix and uterus; Z82.49 Family history of ischemic heart disease and other diseases of the circulatory system; Z87.891 Personal history of nicotine dependence; Z79.899 Other long term (current) drug therapy; Z99.81 Dependence on supplemental oxygen
CPT/HCPCS: 36415; 36600; 71010; 71275; 78452; 80048; 80053; 80061; 81001; 82140; 82550; 82553; 82803; 82962; 83735; 84100; 84484; 85025; 85379; 85610; 85730; 87205; 87400; 93005; 93010; 93017; 93306; 94640; 94660; 94760; 96365; 96367; 96372; 96375; A9270-GY; A9502; C9113; G8978-GP; G8979-GP; J0360; J1650; J1956; J2060; J2270; J2785; J2930; J3475; J7030; J7040; J7512; Q9967

== ENCOUNTER 2020-11-14 21:08 | Observation (INO) | payer MEDICARE ==
[2020-11-14 23:08] LABS: Basophils % (Auto) 0.7 % (0.0-1.8); Eosinophils % (Auto) 0.1 % (0.0-4.3); Hematocrit 39.2 % (30.3-42.9); Hemoglobin 12.6 gm/dl (10.1-14.3); Lymphocytes # (Auto) 1.2 K/mm3 (1.2-5.4); Lymphocytes % (Auto) 18.7 % (13.4-35.0); Mean Corpuscular HGB Conc 32 % (30-34); Mean Corpuscular Volume 97 fl (79-97); Monocytes # (Auto) 0.5 K/mm3 (0.0-0.8); Monocytes % (Auto) 7.4 % (0.0-7.3); Platelet Count 243 K/mm3 (140-440); Red Blood Count 4.05 M/mm3 (3.65-5.03); Red Cell Distribution Width 14.3 % (13.2-15.2)
[2020-11-14 23:31] LABS: Blood Urea Nitrogen 21 mg/dL (7-17); Calcium 9.3 mg/dL (8.4-10.2); Hemolysis Index 76
[2020-11-14 23:33] LABS: BUN/Creatinine Ratio 35
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
[2020-11-15 01:05] LABS: INR 1.13 (0.87-1.13); Partial Thromboplastin Time 22.4 Sec. (24.2-36.6)
[2020-11-15 01:16] LABS: Alanine Aminotransferase 33 units/L (7-56); Albumin 4.5 g/dL (3.9-5)
[2020-11-15 01:17] LABS: Bilirubin,Direct < 0.2 mg/dL (0-0.2)
[2020-11-15] MEDS ORDERED: SODIUM CHLORIDE 0.9% 1000 ML 1,000 ML IV ONE (01:18)
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
--- NOTE | 2020-11-15 03:21 | Cat Scan Report ---
CTA ABDOMEN AND PELVIS WITHOUT AND WITH IV CONTRAST INDICATION / CLINICAL INFORMATION: G.I. BLEED PROTOCOL!! Pt complains of rectal bleeding and "Black Tarry Stools".. TECHNIQUE: Axial CT images were obtained through the abdomen and pelvis before and after after injection of 100 mL Omnipaque 350 IV contrast. MIP reconstructions were produced. All CT scans at this location are pe rformed using CT dose reduction for ALARA by means of automated exposure control. COMPARISON: None available. FINDINGS: Aorta: Extensive aortic atherosclerosis. No evidence of aneurysm or dissection. Renal arteries: No significant abnormality. Celiac artery: No significant abnormality. Superior Mesenteric Artery: No significant abnormality. Inferior mesenteric artery: No significant abnormality. Right Iliac Arteries: Moderate atherosclerotic calcifications.. Left Iliac Arteries: Moderate atherosclerotic calcifications.. Additional Findings: The liver, spleen, pancreas, adrenal glands, and kidneys are unremarkable. Prior cholecystectomy. The stomach herniates into a ventral abdominal hernia without evidence of obstructi on. There is a moderate amount of stool throughout the colon. There is no evidence of bowel obstructi on or perienteric inflammation. No source of GI bleeding is identified. The bladder is unremarkable. Prior hysterectomy. No adnexal mass. An IVC filter is in place. Skeletal Structures: No acute abnormality. Degenerative change of the spine with grade 1 anterolisthe sis of L4 on L5. IMPRESSION: 1. No source of GI bleeding identified. 2. The stomach herniates into a ventral abdominal hernia without evidence of obstruction. 3. IVC filter in place. IVC Filter Recommendation: IVC filters should be removed if possible when they are no longer clinical ly necessary. (1) Refer to the established IVC filter management plan; (2) If there is no established plan for the patient's IVC filter, consider referral to interventional/vascular clinician on a nonem ergent basis for evaluation. Signer Name: Tesha Rodriguez MD Signed: 11/15/2020 3:17 AM Workstation Name: [id number]
[2020-11-15] MEDS ORDERED: PANTOPRAZOLE 40 MG INJ IV ONE (03:58)
[2020-11-15] MEDS ORDERED: ACETAMINOPHEN 325 MG TAB PO PRN (04:03)
[2020-11-15] MEDS ORDERED: ALBUTEROL 2.5 MG/3 ML NEBU IH PRN (04:08)
[2020-11-15] MEDS ORDERED: hydrALAZINE 20 MG/1 ML INJ IV PRN (04:08)
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
[2020-11-15] MEDS: IPRATROPIUM/ALBUTEROL SULFATE 3 ML AMPUL.NEB IH SCH ×5 (08:09→21:51)
[2020-11-15] MEDS: SODIUM CHLORIDE 0.45% 1000 ML 1,000 ML IV SCH ×2 (09:08→23:09)
[2020-11-15] MEDS ORDERED: PANTOPRAZOLE 40 MG INJ IV SCH (10:00)
[2020-11-15] MEDS: MORPHINE 4 MG/1 ML INJ IV PRN ×2 (12:54→20:03)
--- NOTE | 2020-11-15 12:57 | Progress Note ---
Assessment and Plan Assessment and plan: Assessment and Plan Assessment and plan: GI bleed -c/o dark tarry stools x1 week -Guaiac positive -N.p.o. -IV Protonix twice daily -GI consulted -Hgb stable at 12.6, monitor -Supportive care Hyperkalemia -At 5.3 on presentation -Receiving IVF -Follow-up on repeat lab -Monitor HTN -Monitor BP -Resume home hypertensive meds, when appropriate -IV hydralazine when necessary Dyspnea -c/o dyspnea x3 days -Has history of COPD -On supplemental oxygen maintaining O2 sats 89-92% -Albuterol as needed COPD/Asthma -With home oxygen 2L -Increased shortness of breath -Scheduled to DuoNebs albuterol when necessary 11/15/20 Patient complain of nausea, no vomiting, no chest pain no shortness of breath. Continue Protonix 40 mg IV twice a day. GI evaluation. Recheck CBC in the morning. Continue oxygen. DuoNeb by nebulizer every 4 hours as needed. Discharge planning 1 to 2 days when cleared by GI History of present illness: 74-year-old -L[place]ian female with history of hypertension, CVA (2011), DVT s/p IVC filter, renal stones, COPD/asthma on home O2, prediabetes, PVD, and HLD who presents to [facility] ED via EMS with complaints of shortness of breath and dark tarry stools. Patient states she has been experiencing dark tarry stools x1 week. Endorses abdominal cramping and diarrhea/loose stools x2 to 3 days, wh ich has since resolved. Patient states she discussed her symptoms with her PCP and was told that she could not get an appointment with a GI doctor before December. Additionally patient complains of difficulty in breathing 3 days. Patient states that she called EMS Wednesday (11/12) due to difficulty in breathing. At the time EMS suggested transport to the ED for further evaluation and treatment, patient declined. Her breathing continued to worsen and she called EMS last night for transport to the ED. Denies fever, sore throat, emesis, hematemesis, hemoptysis, chest pain, palpitations, use/abuse of laxatives, alterations in vision, or recent sick contacts History Interval history: Patient is seen and examined Patient medication and chart reviewed Patient complained of nausea no vomiting. No chest pain no shortness of breath No episode of GI bleeding but stool is guaiac positive Vitals are stable Hospitalist Physical - Constitutional Vitals: Temp Pulse Resp BP Pulse Ox 98.6 F 80 18 142/54 97 11/14/20 22:16 11/15/20 12:15 11/15/20 12:15 11/15/20 08:30 11/15/20 08:25 General appearance: Present: no acute distress - Neck Neck: Present: supple, normal ROM - Respiratory Respiratory effort: normal Respiratory: bilateral: diminished - Cardiovascular Rhythm: regular Heart Sounds: Present: S1 & S2 - Extremities Extremities: no ischemia, pulses intact, pulses symmetrical - Abdominal General gastrointestinal: soft, non-tender, non-distended - Psychiatric Psychiatric: appropriate mood/affect, intact judgment & insight, memory intact - Neurologic Neurologic: CNII-XII intact, moves all extremities Results - Labs CBC & Chem 7: 11/14/20 22:46 11/15/20 06:54 Labs: Laboratory Last Values WBC 6.3 K/mm3 (4.5-11.0) 11/14/20 22:46 RBC 4.05 M/mm3 (3.65-5.03) 11/14/20 22:46 Hgb 12.6 gm/dl (10.1-14.3) 11/14/20 22:46 Hct 39.2 % (30.3-42.9) 11/14/20 22:46 MCV 97 fl (79-97) 11/14/20 22:46 MCH 31 pg (28-32) 11/14/20 22:46 MCHC 32 % (30-34) 11/14/20 22:46 RDW 14.3 % (13.2-15.2) 11/14/20 22:46 Plt Count 243 K/mm3 (140-440) 11/14/20 22:46 Lymph % (Auto) 18.7 % (13.4-35.0) 11/14/20 22:46 [place] % (Auto) 7.4 % (0.0-7.3) H 11/14/20 22:46 Eos % (Auto) 0.1 % (0.0-4.3) 11/14/20 22:46 Baso % (Auto) 0.7 % (0.0-1.8) 11/14/20 22:46 Lymph # (Auto) 1.2 K/mm3 (1.2-5.4) 11/14/20 22:46 [place] # (Auto) 0.5 K/mm3 (0.0-0.8) 11/14/20 22:46 Eos # (Auto) 0.0 K/mm3 (0.0-0.4) 11/14/20 22:46 Baso # (Auto) 0.0 K/mm3 (0.0-0.1) 11/14/20 22:46 Seg Neutrophils % 73.1 % (40.0-70.0) H 11/14/20 22:46 Seg Neutrophils # 4.6 K/mm3 (1.8-7.7) 11/14/20 22:46 PT 14.3 Sec. (12.2-14.9) 11/15/20 00:42 INR 1.13 (0.87-1.13) 11/15/20 00:42 APTT 22.4 Sec. (24.2-36.6) L 11/15/20 00:42 Sodium 137 mmol/L (137-145) 11/14/20 22:46 Potassium 4.7 mmol/L (3.6-5.0) 11/15/20 06:54 Chloride 97.0 mmol/L (98-107) L 11/14/20 22:46 Carbon Dioxide 28 mmol/L (22-30) 11/14/20 22:46 Anion Gap 17 mmol/L 11/14/20 22:46 BUN 21 mg/dL (7-17) H 11/14/20 22:46 Creatinine 0.6 mg/dL (0.6-1.2) 11/14/20 22:46 Estimated GFR > 60 ml/min 11/14/20 22:46 BUN/Creatinine Ratio 35 % 11/14/20 22:46 Glucose 165 mg/dL (65-100) H 11/14/20 22:46 Hemoglobin A1c 5.7 % (4-6) 11/14/20 22:46 Calcium 9.3 mg/dL (8.4-10.2) 11/14/20 22:46 Total Bilirubin 0.20 mg/dL (0.1-1.2) 11/15/20 00:42 Direct Bilirubin < 0.2 mg/dL (0-0.2) 11/15/20 00:42 Indirect Bilirubin 0.0 mg/dL 11/15/20 00:42 AST 38 units/L (5-40) 11/15/20 00:42 ALT 33 units/L (7-56) 11/15/20 00:42 Alkaline Phosphatase 91 units/L (35-129) 11/15/20 00:42 Total Protein 6.9 g/dL (6.3-8.2) 11/15/20 00:42 Albumin 4.5 g/dL (3.9-5) 11/15/20 00:42 Albumin/Globulin Ratio 1.9 % 11/15/20 00:42 Blood Type O POSITIVE 11/15/20 00:42 Antibody Screen Negative 11/15/20 00:42 Active Medications - Current Medications Current Medications: Generic Name Dose Route Start Last Admin Trade Name Freq PRN Reason Stop Dose Admin Acetaminophen 650 mg 11/15/20 04:03 Acetaminophen 325 Mg Tab PO Q4H PRN Pain MILD(1-3)/Fever >100.5/TALLEY Albuterol 2.5 mg 11/15/20 04:08 Albuterol 2.5 Mg/3 Ml Nebu IH Q4HRT PRN Shortness Of Breath Albuterol/Ipratropium 1 ampul 11/15/20 04:45 11/15/20 12:27 Ipratropium/Albuterol Sulfate 3 Ml Ampul.Neb IH 1 ampul Q4HRT LAWSON Administration Hydralazine HCl 10 mg 11/15/20 04:08 Hydralazine 20 Mg/1 Ml Inj IV Q6HR PRN Blood Pressure Sodium Chloride 1,000 mls @ 100 mls/hr 11/15/20 05:00 11/15/20 09:08 Nacl 0.45% 1000 Ml IV 100 mls/hr DIRECT LAWSON Administration Morphine Sulfate 2 mg 11/15/20 12:46 Morphine 4 Mg/1 Ml Inj IV Q4H PRN Pain , Severe (7-10) Ondansetron HCl 4 mg 11/15/20 04:03 Ondansetron 4 Mg/2 Ml Inj IV Q6H PRN Nausea And Vomiting Pantoprazole Sodium 40 mg 11/15/20 10:00 11/15/20 10:50 Pantoprazole 40 Mg Inj IV 40 mg BID LAWSON Administration Sodium Chloride 10 ml 11/15/20 10:00 11/15/20 11:12 Sodium Chloride 0.9% 10 Ml Flush Syringe IV 10 ml BID LAWSON Administration Sodium Chloride 10 ml 11/15/20 04:03 Sodium Chloride 0.9% 10 Ml Flush Syringe IV PRN PRN LINE FLUSH Nutrition/Malnutrition Assess - Malnutrition Assessment Minimum of two criteria: No - Attestation Statement I have reviewed and agreed w/ Malnutrition eval & tx plan: Yes
[2020-11-15] MEDS: ONDANSETRON 4 MG/2 ML INJ IV PRN (14:08)
[2020-11-15 14:33] LABS: Hematocrit 39.3 % (30.3-42.9); Hemoglobin 12.7 gm/dl (10.1-14.3); Mean Corpuscular HGB Conc 32 % (30-34); Mean Corpuscular Volume 95 fl (79-97); Platelet Count 224 K/mm3 (140-440); Red Blood Count 4.14 M/mm3 (3.65-5.03); Red Cell Distribution Width 13.8 % (13.2-15.2)
[2020-11-15] MEDS ORDERED: HYDROmorphone 1 MG/1 ML INJ IV ONE (15:38)
--- NOTE | 2020-11-15 18:26 | Gastroenterology Consultation ---
History of Present Illness - Reason for Consult Consult date: 11/15/20 Dark Stools Requesting physician: LOAN WHITE III - History of Present Illness The patient came to the ER for a COPD flare, and said she also had dark stools (unclear if this week or last - patient not sure on dates). She has had no witnessed melena or hematemesis in the ER. She has had a normal CBC x 2. She denies abdominal pain, and says she is hungry and wants to eat. Her last colon oscopy was over 10 years ago, and she denies prior PUD or NSAID overuse. Past History Past Medical History: COPD (/Asthma on home O2), DVT (s/p IVC filter), hyp ertension, stroke (2011), other (Pre-diabetes, renal stones, ) Past Surgical History: appendectomy, hysterectomy, Other (IVC filter, gastric tube) Social history: single, lives with family (Autistic grandson), full code, other (Former smoker quit 30 years ago). denies: alcohol abuse, prescription drug abuse, IV drug use Family history: hypertension (Cirrhosis of the liver) Medications and Allergies Allergies Allergy/AdvReac Type Severity Reaction Status Date / Time Oxazolidinone Antibacterials Allergy Rash Verified 02/23/15 12:02 Sulfa (Sulfonamide Allergy Rash Verified 02/23/15 12:02 Antibiotics) Home Medications Medication Instructions Recorded Confirmed Last Taken Type Aspirin [Aspirin BABY CHEW TAB] 81 mg PO QDAY 11/15/20 11/15/20 Unknown History Diclofenac/Hyaluronate/Niacin 30 gm TP BID 11/15/20 11/15/20 Unknown History [Diclofen 3%-Hyaluron 2%-Niac4%] Docusate Sodium [Colace] 100 mg PO BID PRN 11/15/20 11/15/20 Unknown History Fluticasone [Flonase] 2 spray NS QDAY 11/15/20 11/15/20 Unknown History Fluticasone/Salmeterol [Advair 1 puff IH BID PRN 11/15/20 11/15/20 Unknown History Diskus 250-50 mcg] Gabapentin [Neurontin] 1,600 mg PO QHS 11/15/20 11/15/20 Unknown History Gabapentin [Neurontin] 800 mg PO BID 11/15/20 11/15/20 Unknown History Glucosamine Sulfate Dipot Chlr 1,000 mg PO DAILY 11/15/20 11/15/20 Unknown History [Glucosamine Relief] Ipratropium [Atrovent] 0.5 mg IH Q6HRT PRN 11/15/20 11/15/20 Unknown History Loratadine 10 mg PO DAILY PRN 11/15/20 11/15/20 Unknown History Oxycodone HCl/Acetaminophen 1 each PO Q6H 11/15/20 11/15/20 Unknown History [Oxycodone-Acetaminophen 10-325] Pravastatin [Pravachol] 20 mg PO QHS 11/15/20 11/15/20 Unknown History amLODIPine [Norvasc] 10 mg PO DAILY 11/15/20 11/15/20 Unknown History predniSONE 10 mg PO QDAY PRN 11/15/20 11/15/20 Unknown History Active Meds: Active Medications Acetaminophen (Acetaminophen 325 Mg Tab) 650 mg PO Q4H PRN PRN Reason: Pain MILD(1-3)/Fever >100.5/TALLEY Albuterol (Albuterol 2.5 Mg/3 Ml Nebu) 2.5 mg IH Q4HRT PRN PRN Reason: Shortness Of Breath Albuterol/Ipratropium (Ipratropium/Albuterol Sulfate 3 Ml Ampul.Neb) 1 ampul IH Q4HRT [facility] Last Admin: 11/15/20 17:30 Dose: 1 ampul Documented by: Hydralazine HCl (Hydralazine 20 Mg/1 Ml Inj) 10 mg IV Q6HR PRN PRN Reason: Blood Pressure Sodium Chloride (Nacl 0.45% 1000 Ml) 1,000 mls @ 100 mls/hr IV DIRECT [facility] Last Admin: 11/15/20 09:08 Dose: 100 mls/hr Documented by: Morphine Sulfate (Morphine 4 Mg/1 Ml Inj) 2 mg IV Q4H PRN PRN Reason: Pain , Severe (7-10) Last Admin: 11/15/20 12:54 Dose: 2 mg Documented by: Ondansetron HCl (Ondansetron 4 Mg/2 Ml Inj) 4 mg IV Q6H PRN PRN Reason: Nausea And Vomiting Last Admin: 11/15/20 14:08 Dose: 4 mg Documented by: Pantoprazole Sodium (Pantoprazole 40 Mg Tab) 40 mg PO QDAC LAWSON Sodium Chloride (Sodium Chloride 0.9% 10 Ml Flush Syringe) 10 ml IV BID LAWSON Last Admin: 11/15/20 11:12 Dose: 10 ml Documented by: Sodium Chloride (Sodium Chloride 0.9% 10 Ml Flush Syringe) 10 ml IV PRN PRN PRN Reason: LINE FLUSH I HAVE REVIEWED/RECONCILED MEDICATIONS Review of Systems - Review of Systems All systems: negative (as noted in the HPI) Exam - Constitutional Vital Signs: Temp Pulse Resp BP Pulse Ox 98.6 F 85 16 149/64 96 11/14/20 22:16 11/15/20 17:33 11/15/20 17:33 11/15/20 14:30 11/15/20 14:30 General appearance: no acute distress - EENT Eyes: PERRL, EOM intact ENT: hearing intact, clear oral mucosa - Neck Neck: supple, normal ROM - Respiratory Respiratory effort: normal Respiratory: bilateral: CTA - Cardiovascular Rhythm: regular Heart Sounds: Present: S1 & S2 Extremities: no ischemia, No edema - Gastrointestinal General gastrointestinal: Present: soft, non-tender, non-distended - Integumentary Integumentary: Present: clear, warm, dry - Neurologic Neurological: oriented to person, oriented to place - Labs CBC & Chem 7: 11/15/20 14:28 11/15/20 06:54 Lab Results: Laboratory Results - last 24 hr 11/14/20 11/14/20 11/14/20 22:46 22:46 22:46 WBC 6.3 RBC 4.05 Hgb 12.6 Hct 39.2 MCV 97 MCH 31 MCHC 32 RDW 14.3 Plt Count 243 Lymph % (Auto) 18.7 [place] % (Auto) 7.4 H Eos % (Auto) 0.1 Baso % (Auto) 0.7 Lymph # (Auto) 1.2 [place] # (Auto) 0.5 Eos # (Auto) 0.0 Baso # (Auto) 0.0 Seg Neutrophils % 73.1 H Seg Neutrophils # 4.6 PT INR APTT Sodium 137 Potassium 5.3 H Chloride 97.0 L Carbon Dioxide 28 Anion Gap 17 BUN 21 H Creatinine 0.6 Estimated GFR > 60 BUN/Creatinine Ratio 35 Glucose 165 H Hemoglobin A1c 5.7 Calcium 9.3 Total Bilirubin Direct Bilirubin Indirect Bilirubin AST ALT Alkaline Phosphatase Total Protein Albumin Albumin/Globulin Ratio Blood Type Antibody Screen 11/15/20 11/15/20 11/15/20 00:42 00:42 00:42 WBC RBC Hgb Hct MCV MCH MCHC RDW Plt Count Lymph % (Auto) [place] % (Auto) Eos % (Auto) Baso % (Auto) Lymph # (Auto) [place] # (Auto) Eos # (Auto) Baso # (Auto) Seg Neutrophils % Seg Neutrophils # PT 14.3 INR 1.13 APTT 22.4 L Sodium Potassium Chloride Carbon Dioxide Anion Gap BUN Creatinine Estimated GFR BUN/Creatinine Ratio Glucose Hemoglobin A1c Calcium Total Bilirubin 0.20 Direct Bilirubin < 0.2 Indirect Bilirubin 0.0 AST 38 ALT 33 Alkaline Phosphatase 91 Total Protein 6.9 Albumin 4.5 Albumin/Globulin Ratio 1.9 Blood Type O POSITIVE Antibody Screen Negative 11/15/20 11/15/20 06:54 14:28 WBC 6.2 RBC 4.14 Hgb 12.7 Hct 39.3 MCV 95 MCH 31 MCHC 32 RDW 13.8 Plt Count 224 Lymph % (Auto) [place] % (Auto) Eos % (Auto) Baso % (Auto) Lymph # (Auto) [place] # (Auto) Eos # (Auto) Baso # (Auto) Seg Neutrophils % Seg Neutrophils # PT INR APTT Sodium Potassium 4.7 Chloride Carbon Dioxide Anion Gap BUN Creatinine Estimated GFR BUN/Creatinine Ratio Glucose Hemoglobin A1c Calcium Total Bilirubin Direct Bilirubin Indirect Bilirubin AST ALT Alkaline Phosphatase Total Protein Albumin Albumin/Globulin Ratio Blood Type Antibody Screen Assessment and Plan - Patient Problems (1) Heme + stool Current Visit: Yes Status: Acute Plan to address problem: - Heme (+) stool in the ER, but no N/V/abdominal pain, and hct is stable/normal x2. - OK to discharge per our service on PO protonix. - Will advance diet. - Since no anemia, OK to continue any anticoagulation the patient may be taking. - We will sign off, please call if needed.
[2020-11-15] MEDS: GABAPENTIN 400 MG CAP PO SCH ×2 (20:03→23:08)
[2020-11-16] MEDS: IPRATROPIUM/ALBUTEROL SULFATE 3 ML AMPUL.NEB IH SCH ×3 (01:48→08:50)
[2020-11-16] MEDS: MORPHINE 4 MG/1 ML INJ IV PRN (05:46)
[2020-11-16 05:55] LABS: Basophils # (Auto) 0.1 K/mm3 (0.0-0.1); Basophils % (Auto) 1.6 % (0.0-1.8); Eosinophils % (Auto) 0.5 % (0.0-4.3); Hematocrit 40.7 % (30.3-42.9); Lymphocytes # (Auto) 2.5 K/mm3 (1.2-5.4); Lymphocytes % (Auto) 46.2 % (13.4-35.0); Mean Corpuscular HGB Conc 32 % (30-34); Mean Corpuscular Volume 95 fl (79-97); Monocytes # (Auto) 0.5 K/mm3 (0.0-0.8); Monocytes % (Auto) 9.4 % (0.0-7.3); Platelet Count 265 K/mm3 (140-440); Red Blood Count 4.28 M/mm3 (3.65-5.03); Red Cell Distribution Width 14.3 % (13.2-15.2)
[2020-11-16 06:14] LABS: Blood Urea Nitrogen 12 mg/dL (7-17); Calcium 8.7 mg/dL (8.4-10.2); Hemolysis Index 20
[2020-11-16 06:17] LABS: BUN/Creatinine Ratio 24
[2020-11-16] MEDS ORDERED: PANTOPRAZOLE 40 MG TAB PO SCH (07:30)
[2020-11-16] MEDS: ONDANSETRON 4 MG/2 ML INJ IV PRN (08:07)
[2020-11-16] MEDS: SODIUM CHLORIDE 0.45% 1000 ML 1,000 ML IV SCH (08:07)
[2020-11-16 10:02] LABS: Basophils % (Auto) 0.5 % (0.0-1.8); Eosinophils % (Auto) 0.7 % (0.0-4.3); Hematocrit 39.1 % (30.3-42.9); Hemoglobin 12.5 gm/dl (10.1-14.3); Lymphocytes # (Auto) 2.3 K/mm3 (1.2-5.4); Lymphocytes % (Auto) 43.9 % (13.4-35.0); Mean Corpuscular HGB Conc 32 % (30-34); Mean Corpuscular Volume 96 fl (79-97); Monocytes # (Auto) 0.5 K/mm3 (0.0-0.8); Monocytes % (Auto) 9.9 % (0.0-7.3); Platelet Count 245 K/mm3 (140-440); Red Blood Count 4.07 M/mm3 (3.65-5.03); Red Cell Distribution Width 14.3 % (13.2-15.2)
--- NOTE | 2020-11-16 10:02 | Discharge Summary ---
Providers - Providers Date of Admission: 11/15/20 04:09 Date of discharge: 11/16/20 Attending physician: JENNA CID MD 11/15/20 03:55 Consult to Physician [CONS] Routine Comment: Consulting Provider: MAUREEN ARREGUIN Physician Instructions: Reason For Exam: gi bleed Primary care physician: [employer] Hospitalization Reason for admission: GI bleed, nausea, dyspnea, COPD Condition: Good Hospital course: History of present illness: 74-year-old -[place] female with history of hypertension, CVA (2011), DVT s/p IVC filter, renal stones, COPD/asthma on home O2, prediabetes, PVD, and HLD who presents to [facility] via EMS with complaints of shortness of breath and dark tarry stools. Patient states she has been experiencing dark tarry stools x1 week. Endorses abdominal cramping and diarrhea/loose stools x2 to 3 days, which has since resolved. Patient states she discussed her symptoms with her PCP and was told that she could not get an appointment with a GI doctor before December. Additionally patient complains of difficulty in breathing 3 days. Patient states that she called EMS Wednesday (11/12) due to difficulty in breathing. At the time EMS suggested transport to the ED for further evaluation and treatment, patient declined. Her breathing continued to worsen and she called EMS last night for transport to the ED. Denies fever, sore throat, emesis, hematemesis, hemoptysis, chest pain, palpitations, use/abuse of laxatives, alterations in vision, or recent sick contacts Assessment and Plan Assessment and plan: GI bleed -c/o dark tarry stools x1 week -Guaiac positive -N.p.o. -IV Protonix twice daily -GI consulted -Hgb stable at 12.6, monitor -Supportive care Hyperkalemia -At 5.3 on presentation -Receiving IVF -Follow-up on repeat lab -Monitor HTN -Monitor BP -Resume home hypertensive meds, when appropriate -IV hydralazine when necessary Dyspnea -c/o dyspnea x3 days -Has history of COPD -On supplemental oxygen maintaining O2 sats 89-92% -Albuterol as needed COPD/Asthma -With home oxygen 2L -Increased shortness of breath -Scheduled to DuoNebs albuterol when necessary 11/15/20 Patient complain of nausea, no vomiting, no chest pain no shortness of breath. Continue Protonix 40 mg IV twice a day. GI evaluation. Recheck CBC in the morning. Continue oxygen. DuoNeb by nebulizer every 4 hours as needed. Discharge planning 1 to 2 days when cleared by GI 11/16/20 Patient feels better. Denied any nausea no vomiting no abdominal pain no GI bleeding. Patient has heme positive stool. Patient hemoglobin is 13.2 and hematocrit 40.7 Patient is seen and evaluated by GI and patient is okay to discharge per GI on p.o. Protonix. Patient will follow up with GI in their office as outpatient Discharge patient home with Protonix and Zofran patient will follow up with GI in their office as outpatient within a week. Patient also follow-up with primary care within a week Disposition: DC-01 TO HOME OR SELFCARE Final Discharge Diagnosis (Prints w/discharge instructions): GI bleed resolved. Hyperkalemia resolved. Dyspnea resolved. COPD asthma stable Core Measure Documentation - Palliative Care Palliative Care/ Comfort Measures: Not Applicable - Core Measures Any of the following diagnoses?: none Exam - Constitutional Vitals: Temp Pulse Resp BP Pulse Ox 98.9 F 85 16 129/67 98 11/16/20 06:02 11/16/20 08:36 11/16/20 08:36 11/16/20 06:02 11/16/20 08:36 General appearance: Present: no acute distress, well-nourished - EENT Eyes: Present: PERRL ENT: hearing intact, clear oral mucosa - Neck Neck: Present: supple, normal ROM - Respiratory Respiratory effort: normal Respiratory: bilateral: CTA - Cardiovascular Heart Sounds: Present: S1 & S2. Absent: rub, click - Extremities Extremities: pulses symmetrical, No edema Peripheral Pulses: within normal limits - Abdominal General gastrointestinal: Present: soft, non-tender, non-distended, normal bowel sounds Female genitourinary: Present: normal - Integumentary Integumentary: Present: clear, warm, dry - Musculoskeletal Musculoskeletal: gait normal, strength equal bilaterally - Psychiatric Psychiatric: appropriate mood/affect, intact judgment & insight - Neurologic Neurologic: CNII-XII intact, moves all extremities Plan Activity: advance as tolerated Diet: low fat, low cholesterol, low salt Forms: Accompanied Note Prescriptions: Pantoprazole [Protonix TAB] 40 mg PO QDAC 30 Days tablet
[2020-11-16] MEDS: GABAPENTIN 400 MG CAP PO SCH (10:11)
[2020-11-16] MEDS ORDERED: ALBUTEROL 2.5 MG/3 ML NEBU IH PRN (12:00)
[2020-11-16 12:40] VITALS: BP 155/69
[2020-11-16] MEDS ORDERED: BUDESONIDE 0.5 MG/2 ML NEBU IH SCH (20:00)
[2020-11-16] MEDS ORDERED: ARFORMOTEROL 15 MCG/2 ML NEBU IH SCH (20:00)
== END 2020-11-16 12:45 | disposition home or self-care (01) ==
LOC: ED 21:08 → INTOOBSV 11-15 04:09 → 3A 11-15 04:09
PROVIDERS: ADMIT Internal Medicine Geriatric Medicine; ATTEND Hospitalist
DX: K92.2 Gastrointestinal hemorrhage, unspecified (principal); I10 Essential (primary) hypertension; E87.5 Hyperkalemia; R06.00 Dyspnea, unspecified; J45.909 Unspecified asthma, uncomplicated; K21.9 Gastro-esophageal reflux disease without esophagitis; N28.9 Disorder of kidney and ureter, unspecified; Z86.718 Personal history of other venous thrombosis and embolism; Z90.49 Acquired absence of other specified parts of digestive tract; Z90.710 Acquired absence of both cervix and uterus; Z79.899 Other long term (current) drug therapy; Z98.890 Other specified postprocedural states; Z79.82 Long term (current) use of aspirin; Z86.73 Personal history of transient ischemic attack (TIA), and cerebral infarction without residual deficits; Z87.442 Personal history of urinary calculi; Z87.891 Personal history of nicotine dependence; Z98.51 Tubal ligation status
CPT/HCPCS: 36415; 71046; 74174; 80048; 80076; 83036; 84132; 85025; 85027; 85610; 85730; 86850; 86900; 86901; 94640; 96361; 96374; 96375; 96376; 99285; C9113; G0378; J2270; J2405; J7030; Q9967; 96365